=== PATIENT | female | born 1990 | race Caucasian/White ===

== ENCOUNTER 2020-07-28 14:10 | Outpatient (REF) | payer MEDICAID, SELFPAY ==
[2020-07-28 15:32] LABS: Thyroid Stimulating Hormone 0.25 mIU/mL (0.32-4.0)
[2020-07-28 15:33] LABS: Free T4 (Free Thyroxine) 1.77 ng/dL (0.71-1.85)
[2020-07-29 09:21] LABS: Triiodothyronine T3 Total 106 ng/dL (76-181)
== END 2020-07-28 14:11 | disposition home or self-care (01) ==
LOC: HO.LAB 14:10
PROVIDERS: PCP Emergency Medicine; Visit Provider Internal Medicine
DX: E03.9 Hypothyroidism, unspecified (principal)
CPT/HCPCS: 84439; 84443; 84480

== ENCOUNTER → 2020-08-16 08:32 | Outpatient (BNVA) | payer MEDICAID, SELFPAY | PROVIDERS: Visit Provider Internal Medicine | DX: E89.0 Postprocedural hypothyroidism (principal); E83.51 Hypocalcemia; E55.9 Vitamin D deficiency, unspecified; Z85.850 Personal history of malignant neoplasm of thyroid; Z79.899 Other long term (current) drug therapy | CPT/HCPCS: 99212 ==

== ENCOUNTER 2020-10-03 09:33 | Outpatient (REF) | payer MEDICAID, SELFPAY ==
[2020-10-03 10:25] LABS: Albumin Level 4.2 g/dL (3.5-5.0); Calcium 8.4 mg/dL (8.4-10.2)
[2020-10-03 10:53] LABS: Free T4 (Free Thyroxine) 1.26 ng/dL (0.71-1.85); Thyroid Stimulating Hormone 0.22 uIU/mL (0.32-4.0); Vitamin D 25-OH Total 33.8 ng/mL (>30)
[2020-10-04 16:37] LABS: Calcium (PTHI) 8.5 mg/dL (8.6-10.2); PTHI 68 pg/mL (14-64)
[2020-10-04 18:37] LABS: Triiodothyronine T3 Total 112 ng/dL (76-181)
[2020-10-04 18:57] LABS: Thyroglobulin 0.1 ng/mL; Thyroglobulin Antibodies <1 IU/mL (< or = 1)
[2020-10-10 08:22] LABS: FT4 by Equilib. Dialysis 1.9 ng/dL (0.9-2.2)
== END 2020-10-03 09:34 | disposition home or self-care (01) ==
LOC: HO.LAB 09:33
PROVIDERS: PCP Emergency Medicine; Visit Provider Internal Medicine
DX: E83.51 Hypocalcemia (principal); E89.0 Postprocedural hypothyroidism; E55.9 Vitamin D deficiency, unspecified
CPT/HCPCS: 36415; 82040; 82306; 82310; 83970; 84432; 84439; 84443; 84480; 86800

== ENCOUNTER → 2020-10-04 07:48 | Outpatient (BNVA) | payer MEDICAID, SELFPAY | PROVIDERS: Visit Provider Internal Medicine | DX: Z76.89 Persons encountering health services in other specified circumstances (principal) ==

== ENCOUNTER → 2020-11-23 07:54 | Outpatient (BNVA) | payer MEDICAID, SELFPAY | PROVIDERS: Visit Provider Internal Medicine ==

== ENCOUNTER 2020-11-28 11:19 | Outpatient (REF) | payer MEDICAID, SELFPAY ==
[2020-11-28 12:39] LABS: Albumin Level 4.1 g/dL (3.5-5.0); Calcium 8.4 mg/dL (8.4-10.2); Estimated Glomerular Filt Rate > 60
[2020-11-28 13:04] LABS: Free T4 (Free Thyroxine) 1.42 ng/dL (0.71-1.85); Thyroid Stimulating Hormone 0.02 uIU/mL (0.32-4.0); Vitamin D 25-OH Total 47.6 ng/mL (>30)
[2020-11-29 04:27] LABS: Triiodothyronine T3 Total 127 ng/dL (76-181)
[2020-11-29 05:16] LABS: Thyroglobulin <0.1 ng/mL
[2020-11-29 09:11] LABS: Thyroglobulin Antibodies <1 IU/mL (< or = 1)
[2020-11-29 10:22] LABS: Calcium (PTHI) 8.9 mg/dL (8.6-10.2); PTHI 35 pg/mL (14-64)
[2020-11-29 21:27] LABS: Prot Elec - Albumin 3.8 g/dL (3.8-4.8); Prot Elec - Alpha1 0.3 g/dL (0.2-0.3); Prot Elec - Alpha2 0.7 g/dL (0.5-0.9); Prot Elec - Beta 1 0.5 g/dL (0.4-0.6); Prot Elec - Beta 2 0.3 g/dL (0.2-0.5); Prot Elec - Gamma 1.2 g/dL (0.8-1.7); Prot Elec - Total Protein 6.8 g/dL (6.1-8.1)
== END 2020-11-28 11:20 | disposition home or self-care (01) ==
LOC: HO.LAB 11:19
PROVIDERS: PCP Emergency Medicine; Visit Provider Internal Medicine
DX: E83.51 Hypocalcemia (principal); E89.0 Postprocedural hypothyroidism; E55.9 Vitamin D deficiency, unspecified
CPT/HCPCS: 36415; 82040; 82306; 82310; 82565; 83970; 84155; 84165; 84432; 84439; 84443; 84480; 86800

== ENCOUNTER 2021-01-19 09:09 | Outpatient (REF) | payer MEDICAID, SELFPAY ==
[2021-01-19 10:01] LABS: Albumin Level 4.4 g/dL (3.5-5.0); Calcium 8.9 mg/dL (8.4-10.2)
[2021-01-19 10:31] LABS: Free T4 (Free Thyroxine) 1.22 ng/dL (0.71-1.85); Thyroid Stimulating Hormone 0.15 uIU/mL (0.32-4.0); Vitamin D 25-OH Total 45.9 ng/mL (>30)
[2021-01-20 05:51] LABS: Thyroglobulin <0.1 ng/mL; Thyroglobulin Antibodies <1 IU/mL (< or = 1)
[2021-01-22 13:43] LABS: Calcium (PTHI) 9.1 mg/dL (8.6-10.2); PTHI 49 pg/mL (14-64)
== END 2021-01-19 09:10 | disposition home or self-care (01) ==
LOC: HO.LAB 09:09
PROVIDERS: PCP Emergency Medicine; Visit Provider Internal Medicine
DX: E83.51 Hypocalcemia (principal); Z85.850 Personal history of malignant neoplasm of thyroid
CPT/HCPCS: 36415; 82040; 82306; 82310; 83970; 84432; 84439; 84443; 86800

== ENCOUNTER → 2021-01-24 09:42 | Outpatient (BNVA) | payer MEDICAID, SELFPAY | PROVIDERS: PCP Emergency Medicine; Visit Provider Internal Medicine ==

== ENCOUNTER 2021-02-05 08:11 | Outpatient (REF) | payer MEDICAID, SELFPAY | END 2021-02-05 08:12 | disposition home or self-care (01) | LOC: HO.LAB 08:11 | PROVIDERS: Visit Provider Internal Medicine | DX: Z20.822 Contact with and (suspected) exposure to COVID-19 (principal) | CPT/HCPCS: C9803; U0003; U0005 ==

== ENCOUNTER 2021-03-28 07:12 | Outpatient (REF) | payer MEDICAID, SELFPAY | END 2021-03-28 07:13 | disposition home or self-care (01) | LOC: HO.LAB 07:12 | PROVIDERS: Visit Provider Internal Medicine | DX: Z20.822 Contact with and (suspected) exposure to COVID-19 (principal) | CPT/HCPCS: C9803; U0003; U0005 ==

== ENCOUNTER 2021-04-11 11:08 | Outpatient (REF) | payer MEDICAID, SELFPAY ==
--- NOTE | ~2021-04-11 | US_ITS ---
EXAMINATION: ULTRASOUND PELVIC, COMPLETE CLINICAL INFORMATION: Irregular and frequent menstruation COMPARISON: CT angiogram of the abdomen and pelvis 03/04/2019 TECHNIQUE: Transabdominal and transvaginal imaging was performed. Transvaginal imaging was performed for further evaluation of the endometrium and adnexa. FINDINGS: The uterus is anteverted and retroflexed and is of normal size and echogenicity measuring 9.6 x 3.9 x 6.3 cm. A regular homogeneous endometrium is identified measuring 0.7 cm. There are nabothian cysts within the cervix. Both ovaries are of normal size and echogenicity. The right ovary measures 3.1 x 1.8 x 1.6 cm for a volume of 4.7 mL. The left ovary measures 3.3 x 2 x 3.5 cm for a volume of 12.1 mL. There are small follicles about each ovary. There is no pelvic free fluid. US/US pelvic and transvaginal IMPRESSION: Unremarkable pelvic ultrasound.
== END 2021-04-11 11:09 | disposition home or self-care (01) ==
LOC: HO.US 11:08
PROVIDERS: Visit Provider Advanced Practice Midwife
DX: N92.0 Excessive and frequent menstruation with regular cycle (principal)
CPT/HCPCS: 76830; 76856

== ENCOUNTER 2021-04-17 09:27 | Outpatient (REF) | payer MEDICAID, SELFPAY ==
[2021-04-17 10:38] LABS: Alanine Aminotransferase 17 U/L (0-31); Albumin Level 4.4 g/dL (3.5-5.0); Alkaline Phosphatase 59 U/L (39-117); Anion Gap 13 (12-20); Aspartate Amino Transferase 14 U/L (5-31); Bilirubin Total 0.5 mg/dL (0.0-1.0); Blood Urea Nitrogen 17 mg/dL (9-16); Calcium 9.2 mg/dL (8.4-10.2); Carbon Dioxide 24 mmol/L (22-29); Chloride 105 mmol/L (96-108); Estimated Glomerular Filt Rate > 60; Glucose Random 102 mg/dL (60-115); Potassium 4.7 mmol/L (3.3-5.1); Sodium 137 mmol/L (135-145); Total Protein 7.5 g/dL (6.5-8.0)
[2021-04-17 11:01] LABS: Free T4 (Free Thyroxine) 1.53 ng/dL (0.71-1.85); Thyroid Stimulating Hormone < 0.01 uIU/mL (0.32-4.0); Vitamin D 25-OH Total 60.5 ng/mL (>30)
[2021-04-19 09:12] LABS: Calcium (PTHI) 9.2 mg/dL (8.6-10.2); PTHI 38 pg/mL (14-64)
[2021-04-19 09:36] LABS: Thyroglobulin <0.1 ng/mL; Thyroglobulin Antibodies <1 IU/mL (< or = 1)
== END 2021-04-17 09:28 | disposition home or self-care (01) ==
LOC: HO.LAB 09:27
PROVIDERS: Visit Provider Internal Medicine
DX: E83.51 Hypocalcemia (principal); Z85.850 Personal history of malignant neoplasm of thyroid
CPT/HCPCS: 36415; 80053; 82306; 83970; 84432; 84439; 84443; 86800

== ENCOUNTER → 2021-04-18 08:37 | Outpatient (BNVA) | payer MEDICAID, SELFPAY | PROVIDERS: Visit Provider Internal Medicine ==

== ENCOUNTER 2021-05-25 12:36 | Outpatient (REF) | payer MEDICAID, SELFPAY ==
[2021-05-25 14:02] LABS: Albumin Level 4.3 g/dL (3.5-5.0); Calcium 9.3 mg/dL (8.4-10.2)
[2021-05-25 14:28] LABS: Free T4 (Free Thyroxine) 1.65 ng/dL (0.71-1.85); Thyroid Stimulating Hormone 0.01 uIU/mL (0.32-4.0); Vitamin D 25-OH Total 45.4 ng/mL (>30)
[2021-05-28 17:57] LABS: Thyroglobulin 0.1 ng/mL; Thyroglobulin Antibodies <1 IU/mL (< or = 1)
== END 2021-05-25 12:37 | disposition home or self-care (01) ==
LOC: HO.LAB 12:36
PROVIDERS: PCP Nurse Practitioner Primary Care; Visit Provider Internal Medicine
DX: E89.0 Postprocedural hypothyroidism (principal); E83.51 Hypocalcemia; E55.9 Vitamin D deficiency, unspecified; Z85.850 Personal history of malignant neoplasm of thyroid
CPT/HCPCS: 36415; 82040; 82306; 82310; 84432; 84439; 84443; 86800

== ENCOUNTER 2021-07-02 15:13 | Outpatient (REF) | payer MEDICAID, SELFPAY ==
[2021-07-02 16:54] LABS: Free T4 (Free Thyroxine) < 0.40 ng/dL (0.71-1.85); HCG Quantitative < 2 mIU/mL; Thyroid Stimulating Hormone 30.41 uIU/mL (0.32-4.0)
[2021-07-03 18:17] LABS: Thyroglobulin 1.6 ng/mL; Thyroglobulin Antibodies <1 IU/mL (< or = 1)
== END 2021-07-02 15:14 | disposition home or self-care (01) ==
LOC: HO.LAB 15:13
PROVIDERS: PCP Nurse Practitioner Primary Care; Visit Provider Internal Medicine
DX: E89.0 Postprocedural hypothyroidism (principal); Z85.850 Personal history of malignant neoplasm of thyroid
CPT/HCPCS: 36415; 84432; 84439; 84443; 84702; 86800

== ENCOUNTER 2021-07-10 12:53 | Outpatient (REF) | payer MEDICAID, SELFPAY ==
[2021-07-10 14:58] LABS: HCG Quantitative < 2 mIU/mL
== END 2021-07-10 12:54 | disposition home or self-care (01) ==
LOC: HO.LAB 12:53
PROVIDERS: PCP Nurse Practitioner Primary Care; Visit Provider Internal Medicine
DX: Z85.850 Personal history of malignant neoplasm of thyroid (principal)
CPT/HCPCS: 36415; 84443; 84702

== ENCOUNTER 2021-07-20 19:06 | Outpatient (REF) | payer MEDICAID, SELFPAY ==
--- NOTE | ~2021-07-20 | MR_ITS ---
EXAMINATION: MR THORACIC SPINE WITHOUT AND WITH CONTRAST CLINICAL INFORMATION: Malignant neoplasm of the thyroid gland. COMPARISON: Chest CT 09/14/2019. TECHNIQUE: MRI of the thoracic spine was obtained using routine sequences with and without contrast. Intravenous contrast: Gadavist 5.5 mL. FINDINGS: No dedicated postcontrast imaging of the thoracic spine is available at the time of dictation. Dedicated postcontrast imaging of the thoracic spine would be helpful in excluding any osseous metastatic lesions given the history. The post contrast imaging of the chest does not adequately evaluate the thoracic spine for this purpose. On the noncontrast portion of the thoracic spine MRI there is no evidence of bone marrow replacement. There is no bone marrow edema. Inferior chronic endplate Schmorl's node at T8. On the localizer series and at the uppermost aspect of this study, at C4-C5, a large disc osteophyte protrusion results in potential severe central canal stenosis and significant mass effect on the cervical spinal cord that would be better assessed with a dedicated cervical spine MRI. Mild spondylitic changes throughout the thoracic spine. No severe central canal stenosis and no severe foraminal stenosis. Neural foraminal fat is preserved throughout the thoracic spine. No thoracic cord signal abnormality. No thoracic cord compression. Prominent dorsal subcutaneous fat within the imaged lower neck. MR/MR thoracic spine wo/w con IMPRESSION: - No dedicated postcontrast imaging of the thoracic spine is available at the time of dictation. Dedicated postcontrast imaging of the thoracic spine would be helpful in excluding any osseous metastatic lesions given the history. The post contrast imaging of the chest does not adequately evaluate the thoracic spine for this purpose. - On the localizer series and at the uppermost aspect of this study, at C4-C5, a large disc osteophyte protrusion results in potential severe central canal stenosis and significant mass effect on the cervical spinal cord that would be better assessed with a dedicated cervical spine MRI. - Mediastinum and chest are evaluated on the corresponding chest MRI.
--- NOTE | ~2021-07-20 | MR_ITS ---
EXAMINATION: MR CHEST WITHOUT AND WITH CONTRAST CLINICAL INFORMATION: Thyroid cancer. COMPARISON: Previous chest CT 09/14/2019. TECHNIQUE: Sagittal axial and coronal sequences through the chest were performed with and without contrast. Patient received 5.5 mL intravenous Gadavist contrast. FINDINGS: The lungs are clear. There are no enlarged hilar or mediastinal lymph nodes. There are small bilateral axillary lymph nodes. No supraclavicular lymphadenopathy is seen. There is triangular-shaped soft tissue seen in the anterior superior mediastinum likely representing residual thymic tissue. This is similar to previous chest CT scan. No evidence of a suspicious mediastinal mass is seen. The heart is normal in size. There is no pericardial effusion. Vascular structures are normal. There is no pleural effusion or pleural thickening. Images through the upper abdomen are unremarkable. Bony structures are unremarkable. MR/MR chest wo/w con IMPRESSION: Unremarkable exam. No change from September 2019 CT scan.
== END 2021-07-20 19:07 | disposition home or self-care (01) ==
LOC: HO.MRI 19:06
PROVIDERS: Visit Provider Internal Medicine
DX: C73 Malignant neoplasm of thyroid gland (principal)
CPT/HCPCS: 71552; 72157; A9585

== ENCOUNTER 2021-09-18 11:23 | Outpatient (REF) | payer MEDICAID, SELFPAY ==
[2021-09-18 12:42] LABS: Free T4 (Free Thyroxine) 1.45 ng/dL (0.71-1.85); Thyroid Stimulating Hormone 0.01 uIU/mL (0.32-4.0)
[2021-09-20 05:40] LABS: Thyroglobulin Antibodies <1 IU/mL (< or = 1)
[2021-09-20 17:01] LABS: Thyroglobulin <0.1 ng/mL
== END 2021-09-18 11:24 | disposition home or self-care (01) ==
LOC: HO.LAB 11:23
PROVIDERS: PCP Nurse Practitioner Primary Care; Visit Provider Internal Medicine
DX: Z85.850 Personal history of malignant neoplasm of thyroid (principal)
CPT/HCPCS: 36415; 84432; 84439; 84443; 86800

== ENCOUNTER → 2021-09-19 08:21 | Outpatient (BNVA) | payer MEDICAID, SELFPAY | PROVIDERS: PCP Nurse Practitioner Primary Care; Visit Provider Internal Medicine ==

== ENCOUNTER 2021-09-20 08:07 | Outpatient (REF) | payer MEDICAID, SELFPAY | END 2021-09-20 08:08 | disposition home or self-care (01) | LOC: HO.MDS 08:07 | PROVIDERS: PCP Nurse Practitioner Primary Care; Visit Provider Internal Medicine | DX: D50.9 Iron deficiency anemia, unspecified (principal) | CPT/HCPCS: 96365; 96366; J1200; J1750; Q0163 ==

== ENCOUNTER 2021-11-21 10:19 | Outpatient (REF) | payer MEDICAID, SELFPAY ==
[2021-11-21 17:02] LABS: Free T4 (Free Thyroxine) 1.55 ng/dL (0.71-1.85); Thyroid Stimulating Hormone < 0.01 uIU/mL (0.32-4.0)
[2021-11-23 20:06] LABS: Thyroglobulin <0.1 ng/mL; Thyroglobulin Antibodies <1 IU/mL (< or = 1)
== END 2021-11-21 10:20 | disposition home or self-care (01) ==
LOC: HO.LAB 10:19
PROVIDERS: PCP Nurse Practitioner Primary Care; Visit Provider Internal Medicine
DX: C73 Malignant neoplasm of thyroid gland (principal); Z85.850 Personal history of malignant neoplasm of thyroid
CPT/HCPCS: 36415; 84432; 84439; 84443; 86800

== ENCOUNTER → 2021-11-28 07:58 | Outpatient (BNVA) | payer MEDICAID, SELFPAY | PROVIDERS: PCP Nurse Practitioner Primary Care; Visit Provider Internal Medicine | DX: E89.0 Postprocedural hypothyroidism (principal); E83.51 Hypocalcemia; E55.9 Vitamin D deficiency, unspecified; D49.89 Neoplasm of unspecified behavior of other specified sites; Z85.850 Personal history of malignant neoplasm of thyroid | CPT/HCPCS: 99212 ==

== ENCOUNTER 2021-12-12 11:00 | Outpatient (REF) | payer MEDICAID, SELFPAY ==
--- NOTE | ~2021-12-12 | MR_ITS ---
EXAMINATION: MR CHEST WITHOUT AND WITH CONTRAST CLINICAL INFORMATION: Thyroid cancer. COMPARISON: Previous chest MRI July [address] September 2019 TECHNIQUE: Sagittal axial and coronal sequences through the chest with and without contrast. The patient received 5 mL intravenous gadolinium contrast. FINDINGS: The lungs are clear. There are no enlarged hilar or mediastinal lymph nodes. The heart does not appear enlarged. There is no pericardial effusion. There is triangular-shaped soft tissue seen in the anterior superior mediastinum likely representing residual thymic tissue that is stable. There is no pleural effusion or pleural thickening. No chest wall mass or enlarged axillary lymph nodes are seen. The bony structures are unremarkable. Images of the upper abdomen are unremarkable. MR/MR chest wo/w con IMPRESSION: Unremarkable exam. No change from previous chest MRI July 2021.
== END 2021-12-12 11:01 | disposition home or self-care (01) ==
LOC: HO.MRI 11:00
PROVIDERS: Visit Provider Internal Medicine
DX: D49.89 Neoplasm of unspecified behavior of other specified sites (principal)
CPT/HCPCS: 71552; A9585

== ENCOUNTER 2021-12-19 09:07 | Outpatient (REF) | payer MEDICAID, SELFPAY | END 2021-12-19 09:08 | disposition home or self-care (01) | LOC: HO.MRI 09:07 | PROVIDERS: Visit Provider Internal Medicine | DX: Z13.89 Encounter for screening for other disorder (principal) ==

== ENCOUNTER 2022-01-02 12:27 | Outpatient (REF) | payer MEDICAID, SELFPAY ==
[2022-01-02 13:44] LABS: Phosphorus 3.1 mg/dL (2.7-4.5)
[2022-01-02 14:02] LABS: Free T4 (Free Thyroxine) 1.68 ng/dL (0.71-1.85); Thyroid Stimulating Hormone < 0.01 uIU/mL (0.32-4.0)
[2022-01-03 15:32] LABS: Vitamin D 25-OH Total 25.7 ng/mL (>30)
[2022-01-03 16:26] LABS: Calcium (PTHI) 9.2 mg/dL (8.6-10.2); PTHI 25 pg/mL (16-77)
[2022-01-07 13:22] LABS: Thyroglobulin <0.1 ng/mL; Thyroglobulin Antibodies <1 IU/mL (< or = 1)
== END 2022-01-02 12:28 | disposition home or self-care (01) ==
LOC: HO.LAB 12:27
PROVIDERS: PCP Nurse Practitioner Primary Care; Visit Provider Internal Medicine
DX: C73 Malignant neoplasm of thyroid gland (principal); E55.9 Vitamin D deficiency, unspecified
CPT/HCPCS: 36415; 82306; 83970; 84100; 84432; 84439; 84443; 86800

== ENCOUNTER → 2022-01-09 11:46 | Outpatient (BNVA) | payer MEDICAID, SELFPAY | PROVIDERS: PCP Nurse Practitioner Primary Care; Visit Provider Internal Medicine | DX: E89.0 Postprocedural hypothyroidism (principal); E83.51 Hypocalcemia; E55.9 Vitamin D deficiency, unspecified; D49.89 Neoplasm of unspecified behavior of other specified sites; Z85.850 Personal history of malignant neoplasm of thyroid | CPT/HCPCS: 99212 ==

== ENCOUNTER 2022-02-13 13:09 | Outpatient (REF) | payer MEDICAID, SELFPAY ==
--- NOTE | ~2022-02-13 | US_ITS ---
EXAMINATION: US SOFT TISSUE NECK CLINICAL INFORMATION: Personal history of malignant neoplasm of thyroid. COMPARISON: Ultrasound soft tissue head/neck thyroid dated 04/26/2019 and 03/04/2019. TECHNIQUE: Ultrasound of the neck soft tissues is performed with high- frequency deras-scale imaging and color Doppler. FINDINGS: THYROID BED: Patient appears be status post right thyroidectomy as well as question partial left thyroidectomy with on the provided imaging a question of some residual thyroid tissue within the thyroid bed. RIGHT NECK SOFT TISSUES: There are numerous right neck lymph nodes present. The largest nodes are as follows: Level VB: 9 x 4 x 7 mm. Normal alonzo architecture. No cortical thickening or lobulation. Level VB: 7 x 4 x 6 mm. Normal alonzo architecture. No cortical thickening or lobulation. Level II:14 x 6 x 13 mm. The appearance is abnormal with no definite fatty hilum identified and question of cortical thickening. The lymph node is smoothly demarcated. Level II: 7 x 3 x 5 mm. Normal architecture without cortical thickening or lobulation. Level II: 13 x 5 x 11 mm. Normal alonzo architecture without cortical thickening or lobulation. Level IB: 8 x 3 x 9 mm. Normal alonzo architecture without cortical thickening or lobulation. Level IB: 8 x 5 x 10 mm. Normal alonzo architecture without cortical thickening or lobulation. LEFT NECK SOFT TISSUES: There are numerous left neck lymph nodes present. The largest nodes are as follows: Level VB: 8 x 1 x 8 cm. Normal alonzo architecture. Level II: 7 x 3 x 5 cm. Normal alonzo architecture. Level II: 11 x 5 x 6 mm. It appears abnormal with lack of fatty hilum, however, no cortical thickening or lobulation is appreciated. Level III: 20 x 4 x 7 mm. Normal architecture without evidence of cortical thickening or lobulation. Level IB: 11 x 5 x 11 mm. Normal alonzo architecture without cortical thickening or lobulation. US/US soft tiss head and/or neck IMPRESSION: 1. Question abnormal lymph nodes without fatty clefts on the right at level II and on the left at level II as described. 2. Question small amount of residual thyroid tissue within the left thyroid bed on the provided images.
[2022-02-13 14:45] LABS: Free T4 (Free Thyroxine) 1.86 ng/dL (0.71-1.85); Thyroid Stimulating Hormone < 0.01 uIU/mL (0.32-4.0)
[2022-02-15 05:32] LABS: Thyroglobulin <0.1 ng/mL; Thyroglobulin Antibodies <1 IU/mL (< or = 1)
== END 2022-02-13 13:10 | disposition home or self-care (01) ==
LOC: HO.US 13:09
PROVIDERS: PCP Nurse Practitioner Primary Care; Visit Provider Internal Medicine
DX: C73 Malignant neoplasm of thyroid gland (principal)
CPT/HCPCS: 36415; 76536; 84432; 84439; 84443; 86800

== ENCOUNTER → 2022-02-20 08:28 | Outpatient (BNVA) | payer MEDICAID, SELFPAY | PROVIDERS: PCP Nurse Practitioner Primary Care; Visit Provider Internal Medicine | DX: Z13.89 Encounter for screening for other disorder (principal) ==

== ENCOUNTER 2022-04-19 10:07 | Outpatient (REF) | payer MEDICAID, SELFPAY ==
[2022-04-19 12:08] LABS: Free T4 (Free Thyroxine) 1.29 ng/dL (0.71-1.85); Thyroid Stimulating Hormone < 0.01 uIU/mL (0.32-4.0)
[2022-04-22 18:11] LABS: Thyroglobulin <0.1 ng/mL; Thyroglobulin Antibodies <1 IU/mL (< or = 1)
== END 2022-04-19 10:08 | disposition home or self-care (01) ==
LOC: HO.LAB 10:07
PROVIDERS: PCP Nurse Practitioner Primary Care; Visit Provider Internal Medicine
DX: C73 Malignant neoplasm of thyroid gland (principal)
CPT/HCPCS: 36415; 84432; 84439; 84443; 86800

== ENCOUNTER → 2022-04-26 09:17 | Outpatient (BNVA) | payer MEDICAID, SELFPAY | PROVIDERS: PCP Nurse Practitioner Primary Care; Visit Provider Internal Medicine | DX: E89.0 Postprocedural hypothyroidism (principal); E83.51 Hypocalcemia; E55.9 Vitamin D deficiency, unspecified; D49.89 Neoplasm of unspecified behavior of other specified sites; Z85.850 Personal history of malignant neoplasm of thyroid | CPT/HCPCS: 99212 ==

== ENCOUNTER 2022-07-31 15:04 | Outpatient (REF) | payer MEDICAID, SELFPAY ==
[2022-07-31 17:17] LABS: Albumin Level 4.7 g/dL (3.5-5.0); Calcium 9.4 mg/dL (8.4-10.2); Phosphorus 3.4 mg/dL (2.7-4.5)
[2022-07-31 17:45] LABS: Thyroid Stimulating Hormone < 0.01 uIU/mL (0.32-4.0); Vitamin D 25-OH Total 31.5 ng/mL (>30)
[2022-08-01 14:57] LABS: Calcium (PTHI) 9.2 mg/dL (8.6-10.2); PTHI 41 pg/mL (16-77)
[2022-08-01 22:51] LABS: Thyroglobulin 0.1 ng/mL; Thyroglobulin Antibodies <1 IU/mL (< or = 1)
== END 2022-07-31 15:05 | disposition home or self-care (01) ==
LOC: HO.LAB 15:04
PROVIDERS: Visit Provider Internal Medicine
DX: C73 Malignant neoplasm of thyroid gland (principal); E83.51 Hypocalcemia
CPT/HCPCS: 36415; 82040; 82306; 82310; 83970; 84100; 84432; 84439; 84443; 86800

== ENCOUNTER 2022-09-23 09:58 | Outpatient (REF) | payer MEDICAID, SELFPAY ==
[2022-09-23 12:15] LABS: Free T4 (Free Thyroxine) 1.71 ng/dL (0.71-1.85); Thyroid Stimulating Hormone < 0.01 uIU/mL (0.32-4.0)
== END 2022-09-23 09:59 | disposition home or self-care (01) ==
LOC: HO.LAB 09:58
PROVIDERS: PCP Nurse Practitioner Primary Care; Visit Provider Internal Medicine
DX: Z85.850 Personal history of malignant neoplasm of thyroid (principal)
CPT/HCPCS: 36415; 84439; 84443

== ENCOUNTER → 2022-10-02 14:44 | Outpatient (BNVA) | payer MEDICAID, SELFPAY | PROVIDERS: PCP Nurse Practitioner Primary Care; Visit Provider Internal Medicine | DX: E89.0 Postprocedural hypothyroidism (principal); E83.51 Hypocalcemia; E55.9 Vitamin D deficiency, unspecified; D49.89 Neoplasm of unspecified behavior of other specified sites; Z85.850 Personal history of malignant neoplasm of thyroid | CPT/HCPCS: 99212 ==

== ENCOUNTER 2023-01-08 11:43 | Outpatient (REF) | payer MEDICAID, SELFPAY ==
[2023-01-08 13:25] LABS: Free T4 (Free Thyroxine) 1.19 ng/dL (0.71-1.85); Thyroid Stimulating Hormone < 0.01 uIU/mL (0.32-4.0)
== END 2023-01-08 11:44 | disposition home or self-care (01) ==
LOC: HO.LAB 11:43
PROVIDERS: PCP Nurse Practitioner Primary Care; Visit Provider Internal Medicine
DX: E89.0 Postprocedural hypothyroidism (principal)
CPT/HCPCS: 36415; 84439; 84443

== ENCOUNTER 2023-02-18 11:30 | Outpatient (REF) | payer MEDICAID, SELFPAY ==
[2023-02-18 13:06] LABS: Thyroid Stimulating Hormone 0.06 uIU/mL (0.32-4.0)
== END 2023-02-18 11:31 | disposition home or self-care (01) ==
LOC: HO.LAB 11:30
PROVIDERS: PCP Nurse Practitioner Primary Care; Visit Provider Internal Medicine
DX: Z85.850 Personal history of malignant neoplasm of thyroid (principal)
CPT/HCPCS: 36415; 84439; 84443

== ENCOUNTER 2023-03-27 09:21 | Outpatient (REF) | payer MEDICAID, SELFPAY ==
[2023-03-27 11:01] LABS: Free T4 (Free Thyroxine) 1.19 ng/dL (0.71-1.85); Thyroid Stimulating Hormone 0.08 uIU/mL (0.32-4.0)
[2023-03-31 19:18] LABS: Thyroglobulin 0.1 ng/mL; Thyroglobulin Antibodies <1 IU/mL (< or = 1)
== END 2023-03-27 09:22 | disposition home or self-care (01) ==
LOC: HO.LAB 09:21
PROVIDERS: PCP Nurse Practitioner Primary Care; Visit Provider Internal Medicine
DX: Z85.850 Personal history of malignant neoplasm of thyroid (principal)
CPT/HCPCS: 36415; 84432; 84439; 84443; 86800

== ENCOUNTER 2023-06-02 15:08 | Outpatient (REF) | payer MEDICAID, SELFPAY ==
[2023-06-02 17:52] LABS: Free T4 (Free Thyroxine) 1.27 ng/dL (0.71-1.85); Thyroid Stimulating Hormone 0.07 uIU/mL (0.32-4.0)
== END 2023-06-02 15:09 | disposition home or self-care (01) ==
LOC: HO.LAB 15:08
PROVIDERS: PCP Nurse Practitioner Primary Care; Visit Provider Internal Medicine
DX: E89.0 Postprocedural hypothyroidism (principal)
CPT/HCPCS: 36415; 84439; 84443

== ENCOUNTER 2023-06-04 15:58 | Outpatient (AMB) | payer MEDICAID, SELFPAY ==
--- NOTE | 2023-06-04 16:00 | MHC.OFFVIS ---
Intake Vital Signs 06/04/23 16:02 Height 5 ft Weight 125 lb 10.616 oz BMI 24.5 BP 102/68 Blood Pressure Location Lt brachial Position Sitting Pulse 56 Pulse Source Pulse Oximeter Intake Visit Reasons: F/U Thyroid Cancer Intake Note: Patient present for Thyroid cancer follow up. 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 She is [id number], intermediate to high risk for recurrence. She is s/p remnant ablation with 28.8 millicurries I131 on 12/24/2019, and then Adjuvant Treatment with 145.8 millicurries I-131 04/13/2020. . . The patient last saw Dr. Bey on 10/02/2022 History: Shortly before her delivery of her third child (in mid 2018) she noted a lump in the region of the thyroid. Presented to PCP and thyroid US was ordered. This revealed multinodular thyroid with a large R sided nodule measuring 3.1 cm, and a large L sided nodule measuring 2.2 cm. She was subsequently referred to Endocrinology, but labs revealed hyperthyroidism with TSH of 0.03. Labs were repeated approximately 1 month later and had slightly improved with TSH of 0.09. FT4 and TT3 remained WNL. She had Thyroid antibodies assessed which were all negative. She was unable to have an uptake and scan completed given that she was at that time. TSH was repeated 05/20/19 and was 0.24. Symptoms had greatly improved. She did undergo FNA 06/17/19 of 3 separate thyroid nodules, with results detailed below: L superior 1.2 cm nodule - cytology Trego Category II benign L inferior 2.0 cm nodule - cytology Trego Category II benign R superior 3.0 cm nodule - cytology Trego Category II Atypia of Undetermined Signifigance - Affirma suspicious. She was referred to Dr. Mcdowell who performed a lateral neck US with finding of a large L sided 2 cm enlarged cervical lymph node. FNA revealed thyroid cells, with high suspicion for metastatic PTC. She underwent total thyroidectomy with central lymph node dissection and right modified radical neck dissection 08/18/19. Official path report revealed Multifocal Papillary Carcinoma of the thyroid, Follicular variant which was 4.0 cm in greatest dimension. There was no angioinvasion or lymphatic invasion identified. Margins were uninvolved. She did have / Central and 10/31 R Lateral Compartment lymph nodes positive for metastatic PTC. She did have a 1.1 cm nodule resected from the R cervical level III which was reported as a parasitic nodule, and within this nodule there was a microscopic focus for follicular variant of PTC. She was stage [id number], intermediate to high risk for recurrence. She did have reimplantation of the R superior and L inferior parathyroid glands, and did have postoperative hypocalcemia with hypoparathyroidism. She was on Calcium citrate with calcitriol posoperatively, but the calcitriol was stopped by Dr. Mcdowell at her F/U visit after her PTH recovered. She is off Calcium at this time. She was kept off of thyroid hormone replacement postoperatively in preparation for I131 remnant ablation. She did have a CT of the head with contrast 08/05/19 prior to her operation as she was having severe headaches. This did reveal a venous anomaly and she has been following with Interventional Neurology at [facility]. She also had a noncontrast CT of the chest 09/14/19 which revealed multiple subcentimeter pulmonary nodules, and also a soft tissue density within the anterior mediastinum. No measurements were given. Due to this, decision was made to initially ablate her with a remnant ablation dose of I131 30 millicurries, in order to visualize the soft tissue mass within the mediastinum. If this proved to iodine avid, then this would likely need surgical resection prior to high dose adjuvant treatment with I131. She did undergo remnant ablation 12/24/2019 with 28.8 millicurries of I131. This was done via the withdrawal method. She did not do labs until 01/11/2020, but these were while she remained off Levothyroxine, and TSH was 64.71 with TG 55.6, and negaitve TG antibodies. Post treatment WBS competed 12/31/2019 revealed a focus of radioiodine in the R thyroid bed thought to represent residual thyroid tissue or disease, as well as several foci of increased uptake with both lungs, suspicious for pulmonary micromets. The mediastinal lesion was not visualized. She then underwent Adjuvant Treatment 04/13/2020 with 145.8 millicurries of I131. Her post-treatment WBS revealed there is no longer region of radioiodine uptake in the right thyroid bed. Almost complete resolution of uptake in both lungs, with only 1 focus of increased uptake identified within the mid right lung without a definitive correlate seen on CT imaging suspicious for residual pulmonary micro mets. Distribution of radiotracer is otherwise physiologic with no other abnormal focus outside the neck identified. This was completed via the withdrawal method. Unfortunately her TSH and TG levels were not received. Of note, her initial remnant ablation was delayed until 12/24/2019 due to her inconsistently following a low iodine diet. Urinary iodine levels had remained elevated until just prior to 12/24/2019. Posttreatment she was started on Levothyroxine. Labs checked 10/03/2020 revealed a TSH of 0.22, TG level of 0.1 and negative TG antibodies. Labs checked 01/19/2021 reveal TSH 0.15 with TG <0.1 and TGAb <1. She had a repeat whole body scan completed 07/17/2021. This was completed via thyroid hormone withdrawal. Labs 07/10/2021 with TSH 88.2, TG 1.6 and TGAb negative. This revealed increased radiotracer uptake at the mid level of the sternum, with no correlation on SPECT CT. There was also increased uptake noted at the T1 and T7 vertebrae, also with no abnormality noted on SPECT CT. She underwent MRI of the thoracic spine as well as the chest which revealed a triangular shaped soft tissue mass visualized in the anterior superior mediastinum, thought to likely represent residual thymus. She was noted to have a large disc osteophyte at C4-C5 with protrusion with potential severe canal stenosis and significant mass effect on the cervical spinal cord. No other spinal abnormality was noted. She has been following with neurology for this abnormality. She then underwent PET CT completed 08/02/2021. This revealed mildly hypermetabolic lymph nodes at the R level IIB and left level IIB. There was also mildly increased FDG uptake noted in the anterior superior mediastinum, with CT demonstrating a triangular soft tissue mass there, thought to represent thymus. No focal abnormality noted within the spine. She underwent repeat MRI of the chest 12/12/2021 which revealed an unchanged triangular shaped soft tissue mass within the superior mediastinum. I discussed this finding with Dr. Land and decision was made to complete additional specialized imaging to determine if this represented normal thymus vs thymic neoplasm. Per results of her imaging this represents normal slightly hyperplastic thymus. She was ordered for an US head and neck in July 2021, but she consistently no-showed for this. She finally did have this completed 02/13/2022. This did reveal 2 abnormal appearing cervical lymph nodes, a R level II 1.4 cm and a L level II 1.1 cm lymph node. She was referred to Dr. Sienna Vasquez for FNA biopsy of these lymph nodes and to assess for any recurrence within the cervical chain. She was referred to Dr. Sienna Vasquez and saw her 04/17/2022. At that time no abnormal lymph nodes were found by Dr. Vasquez. TG was found to be undetectable. Recommendation was made to continue screening solely with TG levels and for a goal TSH of 0.1-0.5 for 3-5 years postoperatively, and then 0.4-2.0. Repat TSH 09/18/2021 0.01. Suppressed TG is <0.1 with negative TG antibodies. Repeated 04/19/2022 with the same results. She remains on levothyroxine 100 mcg PO daily.. She has been on this dose fo 3 mos US Head and Neck: 02/13/2022 RIGHT NECK SOFT TISSUES: There are numerous right neck lymph nodes present. The largest nodes are as follows: Level VB: 9 x 4 x 7 mm. Normal alonzo architecture. No cortical thickening or lobulation. Level VB: 7 x 4 x 6 mm. Normal alonzo architecture. No cortical thickening or lobulation. Level II:14 x 6 x 13 mm. The appearance is abnormal with no definite fatty hilum identified and question of cortical thickening. The lymph node is smoothly demarcated. Level II: 7 x 3 x 5 mm. Normal architecture without cortical thickening or lobulation. Level II: 13 x 5 x 11 mm. Normal alonzo architecture without cortical thickening or lobulation. Level IB: 8 x 3 x 9 mm. Normal alonzo architecture without cortical thickening or lobulation. Level IB: 8 x 5 x 10 mm. Normal alonzo architecture without cortical thickening or lobulation. LEFT NECK SOFT TISSUES: There are numerous left neck lymph nodes present. The largest nodes are as follows: Level VB: 8 x 1 x 8 cm. Normal alonzo architecture. Level II: 7 x 3 x 5 cm. Normal alonzo architecture. Level II: 11 x 5 x 6 mm. It appears abnormal with lack of fatty hilum, however, no cortical thickening or lobulation is appreciated. Level III: 20 x 4 x 7 mm. Normal architecture without evidence of cortical thickening or lobulation. Level IB: 11 x 5 x 11 mm. Normal alonzo architecture without cortical thickening or lobulation. US/US soft tiss head and/or neck IMPRESSION: 1. Question abnormal lymph nodes without fatty clefts on the right at level II and on the left at level II as described. ? 2. Question small amount of residual thyroid tissue within the left thyroid bed on the provided images. Chest MRI: 12/12/2021 FINDINGS: The lungs are clear. There are no enlarged hilar or mediastinal lymph nodes. The heart does not appear enlarged. There is no pericardial effusion. There is triangular-shaped soft tissue seen in the anterior superior mediastinum likely representing residual thymic tissue that is stable. There is no pleural effusion or pleural thickening. No chest wall mass or enlarged axillary lymph nodes are seen. The bony structures are unremarkable. Images of the upper abdomen are unremarkable.? Addendum: The patient returned for additional axial in-phase, vou-ja-odiat gradient echo sequences through the chest with phase and frequency directions reversed. There is signal loss to soft tissue in the anterior mediastinum on [id number] sequences suggestive of fatty normal thymus or thymic hyperplasia. MR/MR chest wo/w con IMPRESSION: Unremarkable exam. No change from previous chest MRI July 2021. Labs: Laboratory Tests 04/19/22 04/19/22 10:15 10:15 TSH < 0.01 L Free T4 1.29 Thyroglobulin Anti body <1 PFSH Medical History History of thyroid cancer Hypocalcemia Local recurrence of malignant neoplasm of thyroid gland Metastasis from thyroid cancer Postoperative hypothyroidism Primary malignant neoplasm of thyroid with metastasis to other site Thymus neoplasm Vitamin D deficiency Surgical History History of blood transfusion Hx of section Hx of total thyroidectomy Hx of tubal ligation Family History Father No problems noted. Mother No problems noted. 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 There is the absence of any cervical adenopathy. Assessment & Plan Assessment & Plan (1) Primary malignant neoplasm of thyroid with metastasis to other site: Code(s): C73 - Malignant neoplasm of thyroid gland Plan: This is a 33-year-old female with a history of metastatic papillary cancer status post thyroidectomy with 2 doses of radioactive iodine s/p remnant ablation with 28.8 millicurries I131 on 12/24/2019, and then Adjuvant Treatment with 145.8 millicurries I-131 04/13/2020. She is currently on 100 mcg levothyroxine with undetectable TSH.. Thyroglobulin levels have been steady at 0.1 Plan is to decrease levothyroxine to 88 mcg and recheck TSH and free T4 in 6 weeks time. Goal is to keep the TSH between 0.1 -0.3. Will also recheck neck ultrasound. If patient continues to have abnormal lymph nodes on neck ultrasound may have patient follow-up with Dr. Vasquez in [place] (2) Postoperative hypothyroidism: Code(s): E89.0 - Postprocedural hypothyroidism Orders: Orders Free T4 (Free Thyroxine) 6 Weeks C73 - Malignant neoplasm of thyroid gland Thyroid Stimulating Hormone 6 Weeks C73 - Malignant neoplasm of thyroid gland US thyroid Today C73 - Malignant neoplasm of thyroid gland Medications: New levothyroxine 88 mcg PO DAILY 30 tabs 5RF Discontinued levothyroxine Discontinued Reason: Doctor's Order 100 mcg PO DAILY 90 tabs 1RF Coding Level of Care Code Est Pt Level 3 (92997) Diagnoses Primary malignant neoplasm of thyroid with metastasis to other site C73 Postoperative hypothyroidism E89.0
[2023-06-04 16:02] VITALS: BP 102/68; PULSE 56; BMI 24.5
== END 2023-06-04 16:38 | disposition home or self-care (01) ==
PROVIDERS: PCP Nurse Practitioner Primary Care; Visit Provider Internal Medicine Endocrinology, Diabetes & Metabolism
DX: C73 Malignant neoplasm of thyroid gland (principal); E89.0 Postprocedural hypothyroidism
CPT/HCPCS: 99213

== ENCOUNTER → 2023-06-04 15:58 | Outpatient (BNVA) | payer MEDICAID, SELFPAY | PROVIDERS: PCP Nurse Practitioner Primary Care; Visit Provider Internal Medicine Endocrinology, Diabetes & Metabolism | DX: C73 Malignant neoplasm of thyroid gland (principal); E89.0 Postprocedural hypothyroidism; Z79.899 Other long term (current) drug therapy | CPT/HCPCS: 99212 ==

== ENCOUNTER 2023-06-25 15:52 | Outpatient (REF) | payer MEDICAID, SELFPAY ==
--- NOTE | ~2023-06-25 | US_ITS ---
EXAMINATION: US SOFT TISSUE OF THE NECK CLINICAL INFORMATION: Malignant neoplasm of thyroid gland. COMPARISON: Ultrasound soft tissue neck 02/13/2022. CT soft tissue neck 08/05/2019. Ultrasound soft tissue head/neck thyroid dated 03/04/2019. TECHNIQUE: Linear transducer grayscale and color Doppler examination of the thyroid bed and surrounding soft tissue. FINDINGS: Status post total thyroidectomy. No suspicious soft tissue within the thyroidectomy bed. A 1.6 x 0.7 x 1.5 cm right submandibular node appears to demonstrate internal calcification which would be abnormal morphology of uncertain which node on prior may be the correlate and recommend consideration of tissue sampling. US/US thyroid IMPRESSION: 1. A 1.6 x 0.7 cm right submandibular node appears to demonstrate internal calcification which would be abnormal morphology and recommend consideration of tissue sampling. 2. Status post total thyroidectomy. No suspicious soft tissue within the thyroidectomy bed. The report will be called to the ordering clinician by a [facility] [employer].
== END 2023-06-25 15:53 | disposition home or self-care (01) ==
LOC: HO.US 15:52
PROVIDERS: PCP Nurse Practitioner Primary Care; Visit Provider Internal Medicine Endocrinology, Diabetes & Metabolism
DX: C73 Malignant neoplasm of thyroid gland (principal)
CPT/HCPCS: 76536

== ENCOUNTER 2023-07-22 09:47 | Outpatient (REF) | payer MEDICAID, SELFPAY | END 2023-07-22 09:48 | disposition home or self-care (01) | LOC: HO.LAB 09:47 | PROVIDERS: PCP Nurse Practitioner Primary Care; Visit Provider Internal Medicine Endocrinology, Diabetes & Metabolism | DX: C73 Malignant neoplasm of thyroid gland (principal) | CPT/HCPCS: 36415; 84439; 84443 ==

== ENCOUNTER 2023-10-28 12:33 | Outpatient (REF) | payer MEDICAID, SELFPAY ==
[2023-10-28 14:26] LABS: Free T4 (Free Thyroxine) 1.21 ng/dL (0.71-1.85); Thyroid Stimulating Hormone 0.67 uIU/mL (0.32-4.0)
== END 2023-10-28 12:34 | disposition home or self-care (01) ==
LOC: HO.LAB 12:33
PROVIDERS: PCP Nurse Practitioner Primary Care; Visit Provider Internal Medicine Endocrinology, Diabetes & Metabolism
DX: Z85.850 Personal history of malignant neoplasm of thyroid (principal)
CPT/HCPCS: 36415; 84439; 84443

== ENCOUNTER 2023-11-18 08:32 | Outpatient (AMB) | payer MEDICAID, SELFPAY ==
--- NOTE | 2023-11-18 08:34 | MHC.OFFVIS ---
Intake Vital Signs 11/18/23 08:35 Height 5 ft Weight 126 lb 1.671 oz BMI 24.6 BP 100/58 L Blood Pressure Location Lt brachial Position Sitting Pulse 55 Pulse Source Pulse Oximeter Intake Visit Reasons: Thyroid cancer-confirmed Intake Note: Patient presents today for Thyroid Cancer follow up. 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 She is [id number], intermediate to high risk for recurrence. She is s/p remnant ablation with 28.8 millicurries I131 on 12/24/2019, and then Adjuvant Treatment with 145.8 millicurries I-131 04/13/2020. . . T History: Shortly before her delivery of her third child (in mid 2018) she noted a lump in the region of the thyroid. Presented to PCP and thyroid US was ordered. This revealed multinodular thyroid with a large R sided nodule measuring 3.1 cm, and a large L sided nodule measuring 2.2 cm. She was subsequently referred to Endocrinology, but labs revealed hyperthyroidism with TSH of 0.03. Labs were repeated approximately 1 month later and had slightly improved with TSH of 0.09. FT4 and TT3 remained WNL. She had Thyroid antibodies assessed which were all negative. She was unable to have an uptake and scan completed given that she was at that time. TSH was repeated 05/20/19 and was 0.24. Symptoms had greatly improved. She did undergo FNA 06/17/19 of 3 separate thyroid nodules, with results detailed below: L superior 1.2 cm nodule - cytology [place] Category II benign L inferior 2.0 cm nodule - cytology [place] Category II benign R superior 3.0 cm nodule - cytology [place] Category II Atypia of Undetermined Signifigance - Affirma suspicious. She was referred to Dr. Mcdowell who performed a lateral neck US with finding of a large L sided 2 cm enlarged cervical lymph node. FNA revealed thyroid cells, with high suspicion for metastatic PTC. She underwent total thyroidectomy with central lymph node dissection and right modified radical neck dissection 08/18/19. Official path report revealed Multifocal Papillary Carcinoma of the thyroid, Follicular variant which was 4.0 cm in greatest dimension. There was no angioinvasion or lymphatic invasion identified. Margins were uninvolved. She did have / Central and 10/31 R Lateral Compartment lymph nodes positive for metastatic PTC. She did have a 1.1 cm nodule resected from the R cervical level III which was reported as a parasitic nodule, and within this nodule there was a microscopic focus for follicular variant of PTC. She was stage [id number], intermediate to high risk for recurrence. She did have reimplantation of the R superior and L inferior parathyroid glands, and did have postoperative hypocalcemia with hypoparathyroidism. She was on Calcium citrate with calcitriol posoperatively, but the calcitriol was stopped by Dr. Mcdowell at her F/U visit after her PTH recovered. She is off Calcium at this time. She was kept off of thyroid hormone replacement postoperatively in preparation for I131 remnant ablation. She did have a CT of the head with contrast 08/05/19 prior to her operation as she was having severe headaches. This did reveal a venous anomaly and she has been following with Interventional Neurology at [facility]. She also had a noncontrast CT of the chest 09/14/19 which revealed multiple subcentimeter pulmonary nodules, and also a soft tissue density within the anterior mediastinum. No measurements were given. Due to this, decision was made to initially ablate her with a remnant ablation dose of I131 30 millicurries, in order to visualize the soft tissue mass within the mediastinum. If this proved to iodine avid, then this would likely need surgical resection prior to high dose adjuvant treatment with I131. She did undergo remnant ablation 12/24/2019 with 28.8 millicurries of I131. This was done via the withdrawal method. She did not do labs until 01/11/2020, but these were while she remained off Levothyroxine, and TSH was 64.71 with TG 55.6, and negaitve TG antibodies. Post treatment WBS competed 12/31/2019 revealed a focus of radioiodine in the R thyroid bed thought to represent residual thyroid tissue or disease, as well as several foci of increased uptake with both lungs, suspicious for pulmonary micromets. The mediastinal lesion was not visualized. She then underwent Adjuvant Treatment 04/13/2020 with 145.8 millicurries of I131. Her post-treatment WBS revealed there is no longer region of radioiodine uptake in the right thyroid bed. Almost complete resolution of uptake in both lungs, with only 1 focus of increased uptake identified within the mid right lung without a definitive correlate seen on CT imaging suspicious for residual pulmonary micro mets. Distribution of radiotracer is otherwise physiologic with no other abnormal focus outside the neck identified. This was completed via the withdrawal method. Unfortunately her TSH and TG levels were not received. Of note, her initial remnant ablation was delayed until 12/24/2019 due to her inconsistently following a low iodine diet. Urinary iodine levels had remained elevated until just prior to 12/24/2019. Posttreatment she was started on Levothyroxine. Labs checked 10/03/2020 revealed a TSH of 0.22, TG level of 0.1 and negative TG antibodies. Labs checked 01/19/2021 reveal TSH 0.15 with TG <0.1 and TGAb <1. She had a repeat whole body scan completed 07/17/2021. This was completed via thyroid hormone withdrawal. Labs 07/10/2021 with TSH 88.2, TG 1.6 and TGAb negative. This revealed increased radiotracer uptake at the mid level of the sternum, with no correlation on SPECT CT. There was also increased uptake noted at the T1 and T7 vertebrae, also with no abnormality noted on SPECT CT. She underwent MRI of the thoracic spine as well as the chest which revealed a triangular shaped soft tissue mass visualized in the anterior superior mediastinum, thought to likely represent residual thymus. She was noted to have a large disc osteophyte at C4-C5 with protrusion with potential severe canal stenosis and significant mass effect on the cervical spinal cord. No other spinal abnormality was noted. She has been following with neurology for this abnormality. She then underwent PET CT completed 08/02/2021. This revealed mildly hypermetabolic lymph nodes at the R level IIB and left level IIB. There was also mildly increased FDG uptake noted in the anterior superior mediastinum, with CT demonstrating a triangular soft tissue mass there, thought to represent thymus. No focal abnormality noted within the spine. She underwent repeat MRI of the chest 12/12/2021 which revealed an unchanged triangular shaped soft tissue mass within the superior mediastinum. I discussed this finding with Dr. Land and decision was made to complete additional specialized imaging to determine if this represented normal thymus vs thymic neoplasm. Per results of her imaging this represents normal slightly hyperplastic thymus. She was ordered for an US head and neck in July 2021, but she consistently no-showed for this. She finally did have this completed 02/13/2022. This did reveal 2 abnormal appearing cervical lymph nodes, a R level II 1.4 cm and a L level II 1.1 cm lymph node. She was referred to Dr. Sienna Vasquez for FNA biopsy of these lymph nodes and to assess for any recurrence within the cervical chain. She was referred to Dr. Sienna Vasquez and saw her 04/17/2022. At that time no abnormal lymph nodes were found by Dr. Vasquez. TG was found to be undetectable. Recommendation was made to continue screening solely with TG levels and for a goal TSH of 0.1-0.5 for 3-5 years postoperatively, and then 0.4-2.0. Repat TSH 09/18/2021 0.01. Suppressed TG is <0.1 with negative TG antibodies. Repeated 04/19/2022 with the same results. She remains on levothyroxine 100 mcg PO daily.. She has been on this dose fo 3 mos US Head and Neck: 02/13/2022 RIGHT NECK SOFT TISSUES: There are numerous right neck lymph nodes present. The largest nodes are as follows: Level VB: 9 x 4 x 7 mm. Normal alonzo architecture. No cortical thickening or lobulation. Level VB: 7 x 4 x 6 mm. Normal alonzo architecture. No cortical thickening or lobulation. Level II:14 x 6 x 13 mm. The appearance is abnormal with no definite fatty hilum identified and question of cortical thickening. The lymph node is smoothly demarcated. Level II: 7 x 3 x 5 mm. Normal architecture without cortical thickening or lobulation. Level II: 13 x 5 x 11 mm. Normal alonzo architecture without cortical thickening or lobulation. Level IB: 8 x 3 x 9 mm. Normal alonzo architecture without cortical thickening or lobulation. Level IB: 8 x 5 x 10 mm. Normal alonzo architecture without cortical thickening or lobulation. LEFT NECK SOFT TISSUES: There are numerous left neck lymph nodes present. The largest nodes are as follows: Level VB: 8 x 1 x 8 cm. Normal alonzo architecture. Level II: 7 x 3 x 5 cm. Normal alonzo architecture. Level II: 11 x 5 x 6 mm. It appears abnormal with lack of fatty hilum, however, no cortical thickening or lobulation is appreciated. Level III: 20 x 4 x 7 mm. Normal architecture without evidence of cortical thickening or lobulation. Level IB: 11 x 5 x 11 mm. Normal alonzo architecture without cortical thickening or lobulation. US/US soft tiss head and/or neck IMPRESSION: 1. Question abnormal lymph nodes without fatty clefts on the right at level II and on the left at level II as described. ? 2. Question small amount of residual thyroid tissue within the left thyroid bed on the provided images. Chest MRI: 12/12/2021 FINDINGS: The lungs are clear. There are no enlarged hilar or mediastinal lymph nodes. The heart does not appear enlarged. There is no pericardial effusion. There is triangular-shaped soft tissue seen in the anterior superior mediastinum likely representing residual thymic tissue that is stable. There is no pleural effusion or pleural thickening. No chest wall mass or enlarged axillary lymph nodes are seen. The bony structures are unremarkable. Images of the upper abdomen are unremarkable.? Addendum: The patient returned for additional axial in-phase, [id number] gradient echo sequences through the chest with phase and frequency directions reversed. There is signal loss to soft tissue in the anterior mediastinum on [id number] sequences suggestive of fatty normal thymus or thymic hyperplasia. MR/MR chest wo/w con IMPRESSION: Unremarkable exam. No change from previous chest MRI July 2021. Labs: Laboratory Tests 04/19/22 04/19/22 10:15 10:15 TSH < 0.01 L Free T4 1.29 Thyroglobulin Anti body <1 recent neck ultrasound showed abnormal submandibular lymph node INDINGS: Status post total thyroidectomy. No suspicious soft tissue within the thyroidectomy bed. A 1.6 x 0.7 x 1.5 cm right submandibular node appears to demonstrate internal calcification which would be abnormal morphology of uncertain which node on prior may be the correlate and recommend consideration of tissue sampling. US/US thyroid IMPRESSION: 1. A 1.6 x 0.7 cm right submandibular node appears to demonstrate internal calcification which would be abnormal morphology and recommend consideration of tissue sampling. 2. Status post total thyroidectomy. No suspicious soft tissue within the thyroidectomy bed. [facility] Medical History History of thyroid cancer Hypocalcemia Local recurrence of malignant neoplasm of thyroid gland Metastasis from thyroid cancer Postoperative hypothyroidism Primary malignant neoplasm of thyroid with metastasis to other site Thymus neoplasm Vitamin D deficiency Surgical History History of blood transfusion Hx of section Hx of total thyroidectomy Hx of tubal ligation Family History Father No problems noted. Mother No problems noted. 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 Current occupational exposures/hazards: Yes (Stress, heavy lifting) Physical Exam Const Other: Healed scar status post thyroidectomy. There is the absence of any cervical adenopathy. Assessment & Plan Assessment & Plan (1) Primary malignant neoplasm of thyroid with metastasis to other site: Code(s): C73 - Malignant neoplasm of thyroid gland Plan: This is a 33-year-old female with a history of metastatic papillary cancer status post thyroidectomy with 2 doses of radioactive iodine s/p remnant ablation with 28.8 millicurries I131 on 12/24/2019, and then Adjuvant Treatment with 145.8 millicurries I-131 04/13/2020. She is currently on 88 mcg levothyroxine . She appears to be clinically and biochemically euthyroid Plan is to patient follow-up with Dr. Vasquez in [place] to assess the abnormal lymph node seen on neck US (2) Postoperative hypothyroidism: Code(s): E89.0 - Postprocedural hypothyroidism Plan: Clinically and biochemically euthyroid on 88 mcg levothyroxine Orders: Referrals Endocrinology Referral C73 - Malignant neoplasm of thyroid gland Coding Level of Care Code Est Pt Level 3 (87752) Diagnoses Primary malignant neoplasm of thyroid with metastasis to other site C73 Postoperative hypothyroidism E89.0
[2023-11-18 08:35] VITALS: BP 100/58; PULSE 55; BMI 24.6
== END 2023-11-18 08:57 | disposition home or self-care (01) ==
PROVIDERS: PCP Nurse Practitioner Primary Care; Referring Provider Nurse Practitioner Primary Care; Visit Provider Internal Medicine Endocrinology, Diabetes & Metabolism
DX: C73 Malignant neoplasm of thyroid gland (principal); E89.0 Postprocedural hypothyroidism
CPT/HCPCS: 99213

== ENCOUNTER → 2023-11-18 08:32 | Outpatient (BNVA) | payer MEDICAID, SELFPAY | PROVIDERS: PCP Nurse Practitioner Primary Care; Visit Provider Internal Medicine Endocrinology, Diabetes & Metabolism | DX: C73 Malignant neoplasm of thyroid gland (principal); E89.0 Postprocedural hypothyroidism | CPT/HCPCS: 99212 ==

== ENCOUNTER 2024-09-01 06:04 | Outpatient (REF) | payer MEDICAID, SELFPAY ==
[2024-09-01 08:10] LABS: Free T4 (Free Thyroxine) 0.98 ng/dL (0.71-1.85); Thyroid Stimulating Hormone 16.37 uIU/mL (0.32-4.0)
[2024-09-03 04:53] LABS: Thyroglobulin 1.4 ng/mL; Thyroglobulin Antibodies <1 IU/mL (< or = 1)
[2024-09-08 08:19] LABS: Thyroglobulin Antibody <1 IU/mL (<=1); Thyroglobulin Level 1.3 ng/mL
== END 2024-09-01 06:05 | disposition home or self-care (01) ==
LOC: HO.LAB 06:04
PROVIDERS: PCP Nurse Practitioner Primary Care; Visit Provider Student in an Organized Health Care Education/Training Program
DX: E89.0 Postprocedural hypothyroidism (principal); Z85.850 Personal history of malignant neoplasm of thyroid
CPT/HCPCS: 36415; 84432; 84439; 84443; 86800

== ENCOUNTER 2024-09-07 08:39 | Outpatient (AMB) | payer MEDICAID, SELFPAY ==
[2024-09-07 08:41] VITALS: BP 112/66; PULSE 51; BMI 22.2
--- NOTE | 2024-09-07 08:41 | MHC.OFFVIS ---
Vital Signs 09/07/24 08:41 Height 5 ft Weight 113 lb 12.136 oz BMI 22.2 BP 112/66 Blood Pressure Location Lt brachial Position Sitting Pulse 51 Pulse Source Pulse Oximeter Intake Visit Reasons: Thyroid Cancer/confirmed Intake Note: Patient present today for Thyroid Cancer follow up visit. Acute Coordinator Required: No Accompanied by: Self / Same As Patient Allergies No Known Allergies [No Known Allergies*] Allergy (Verified 09/07/24 08:44) HPI Comments Details: 34-year-old female here today for follow up of multifocal follicular variant of PTC status post total thyroidectomy and with central lymph node dissection and right modified radical neck dissection on 08/18/2019 with largest focus of 4 cm with 6/38 lymph nodes positive, no AI/LI/ETE, margins negative, AJCC stage I (pT2 N1b MX), MILLER intermediate risk of recurrence, status post remnant ablation with 28.8 mCi of I 131 on 12/24/2019, then adjuvant treatment with 145.8 mCi of I 131 on 04/13/2020 currently MILLER excellent vs indeterminate response to therapy due to mildly elevated Tg intermittenly . History PTC in detail Mid 2019: Noted lump in the region of the thyroid shortly before delivery of her 3rd child. Thyroid ultrasound revealed multinodular goiter with large right-sided nodule measuring 3.1 cm, and a large left-sided nodule measuring 2.2 cm. Labs revealed subclinical hyperthyroidism with TSH of 0.03. Labs were repeated approximately 1 month later with slightly improved TSH of 0.09. Free T4 and total T3 remained within normal limits. Thyroid antibodies were all negative. She was unable to have an uptake and scan given that she was of the time. 05/20/2019: TSH 0.24, symptoms greatly improved 06/17/2019: FNA of 3 separate thyroid nodules L superior 1.2 cm nodule - cytology [place] Category II benign L inferior 2.0 cm nodule - cytology [place] Category II benign R superior 3.0 cm nodule - cytology [place] Category II Atypia of Undetermined Signifigance - Affirma suspicious. Late 2018: Dr. Mcdowell performed lateral neck ultrasound with finding of a large left-sided 2 cm enlarged cervical lymph node. FNA revealed thyroid cells with high suspicion for metastatic PTC. 08/18/2019: Total thyroidectomy with central lymph node dissection and right modified radical neck dissection with Dr. Lynsey Mcdowell at [facility] with the official pathology revealed multifocal papillary carcinoma of the thyroid, follicular variant which was 4 cm in greatest dimension. No angioinvasion or lymphatic invasion identified. Margins were uninvolved. She did have 5/10 central and /19 right lateral compartment lymph nodes positive for metastatic PTC. She did have a 1.1 cm nodule resected from the right cervical level 3 which was reported as metastatic nodule, and within this nodule there was a microscopic focus for follicular variant of PTC. AJCC stage I (pT2 N1b MX), MILLER intermediate to high-risk of recurrence. Also had reimplantation of the right superior and left inferior parathyroid glands. She did develop postoperative hypocalcemia with hypoparathyroidism and was on calcium citrate with calcitriol postoperatively, but eventually PTH recovered and she was able to come off these. She was kept off thyroid hormone replacement postoperatively in preparation for I 131 remnant ablation. 08/05/2019: CT of the head with contrast prior to her operation due to severe headaches revealed a venous anomaly, and she is following with intubation and Neurology at [facility]. 09/14/2019: Noncontrast CT of the chest revealed multiple subcentimeter pulmonary nodules and also a soft tissue density within the anterior mediastinum. No measurements were given. Due to this decision was made to initially ablate her with a remnant ablation dose of I 131 30 mCi, in order to visualize the soft tissue mass within the mediastinum which is proven to be iodine avid, would need high-dose adjuvant treatment with I 131. 12/24/2019: Status post remnant ablation with 28.8 mCi of I 131. Done by withdrawal method. 01/11/2020: Labs not done until this date, but these were while she remained off levothyroxine and TSH was 64.71 with TG 55.6, negative TG antibodies. 12/31/2019: Posttreatment whole-body scan revealed a focus of radioiodine in the right thyroid bed thought to represent residual thyroid tissue/disease as well as several foci of increased uptake within both lungs suspicious for pulmonary micrometastasis. Mediastinal lesion was not visualized. 04/13/2020: Underwent adjuvant treatment with 145.8 mCi of I 131. Posttreatment whole-body scan revealed there is no longer region of radioiodine uptake in the right thyroid bed. Almost complete resolution of uptake in both lungs with only 1 focus of increased uptake identified within the mid right lung without a definitive correlate seen on CT imaging suspicious for residual pulmonary micro metastasis. Distribution of radiotracer uptake was otherwise physiologic with no abnormal focus out identified outside of the neck. This was completed via the withdrawal method. Unfortunately TSH and TG levels were not received. Of note, her initial remnant ablation was delayed until 12/24/2019 due to her inconsistently following a low iodine diet. Urinary iodine levels had remained elevated until just prior to 12/24/2019. Posttreatment she was started on Levothyroxine. 10/03/2020 labs revealed a TSH of 0.22, TG level of 0.1 and negative TG antibodies. 01/19/2021 labs reveal TSH 0.15 with TG <0.1 and TGAb <1. 07/17/2021: Whole-body scan was completed via thyroid hormone withdrawal which revealed increased radiotracer uptake at the mid level of the sternum with no correlation on SPECT CT. There was also increased uptake noted at the T1 and T7 vertebra, also with no abnormality noted on SPECT CT. 07/10/2021: Labs TSH 88.2, TG 1.6, TG antibody negative 2020: MRI of the thoracic spine as well as chest which revealed a triangular shaped soft tissue mass visualized in the anterior superior mediastinum thought to likely represent residual thymus. She was also noted to have a large disc osteophyte at C4-C5 with protrusion with potential severe canal stenosis and significant mass effect on the cervical spinal cord. No other spinal abnormality was noted. She has been following with Neurology for this abnormality. 08/02/2021: PET-CT revealed mildly hypermetabolic lymph nodes in the right level 2B and left level 2B. There was also mildly increased FDG uptake noted in the anterior superior mediastinum with CT demonstrating a triangular soft tissue mass there thought to represent time is. No focal abnormality noted within the spine. 07/2021: She was ordered for ultrasound head and neck however consistently no showed for this. 09/18/2021: TSH 0.01, suppressed TG less than 0.1, TG antibodies in undetectable 12/12/2021: MRI of the chest revealed an unchanged triangular shaped soft tissue mass within the superior mediastinum. Per results if additional imaging this represented normal slightly hyperplastic thymus. 02/13/2022: Ultrasound head and neck reveals to have normal-appearing cervical lymph nodes, right level 2, 1.4 cm and a left level 2, 1.1 cm lymph node. She was referred to Dr. Sienna Brown for FNA biopsy of these lymph nodes to assess for any recurrence in the cervical chain. 04/17/2022: Evaluated by Dr. Sienna Marmolejo at [facility], [place]: no abnormal lymph nodes found, TG was found to be undetectable. Recommendation was made to continue screening solely with TG levels and for a goal TSH of 0.1-0.5 for 3-5 years postoperatively and then 0.4-2. She used to be on levothyroxine 150 mcg daily at some point, this was reduced due to continuously suppressed TSH at some point in 2021, unclear exactly when. 04/19/2022: TSH suppressed, TG antibodies negative, TG less than 0.4?. 03/27/23: tsh 0.08, free t4 1.19, tg <0.1, tg ab <1 06/02/23: tsh 0.07, free t4 1.27 06/25/2023: Ultrasound head and neck did not show any suspicious soft tissue mass within the thyroidectomy bed. Showed a 1.6 X 0.7 next 1.5 cm right submandibular node with internal calcification considered as of normal morphology of uncertain significance. 09/19/23: tsh 1.59, free t4 1.17, tg 0.28, tg ab <0.4 10/04: US neck done with Dr. Vasquez : postrerior to carotid artery in left level IV a flat node measuring 10.5x 0.2 x 0.5 cm with no microcal or vascular flow (looked at report in pt's phone), left level 4 oval node 1.1 x 0.4x0.7 cm normal morphology 2023 TSH 1.5, Tg 0.28 (up from <0.1 but TSH was previousl ysuppressed ) 08/24/24: Dr. Emily Gates did US at [facility] i don not have this report but looked at it in patient phone [facility] said no abnormal LNs noted, left latera level 2, 7x3x[address]with hilum. 08/24/24: TSH 13.37, free t4 0.86, levothyroxine changed to 100 mcg daily from 88 mcg daily Interval history dose of levothyroxine changed to 100 mcg daily from 88 mcg daily anout 2 weeks ago 09/01/24: TSH 16.37, free T4 0.98, thyroglobulin 1.4, TG antibodies less than 1 Denies compressive symtpms Complaining fo excessive tirendess She endorses taking the levothyroxine appropriately, denies missing any doses, she often drinks coffee soon after taking the medication but waits an hour before eating breakfast. Physical exam General: sitting comfortably in no acute distress HEENT: normocephalic/atraumatic, Neck: supple, symmetrical, no palpable masses Cardiac: normal heart sounds Pulm: normal breath sounds B/L, no added breath sounds Abd: not distended, no tenderness Extremities: no edema, no signs of myxedema Neuro: AAO x3, Speech: normal, no facial droop, moving all 4 extremities Laboratory Tests 03/17/19 04/12/19 05/20/19 13:45 14:10 15:14 TSH Free T4 1.12 0.86 0.99 Thyroglobulin Thyroglobulin Antibody 06/16/19 09/08/19 10/21/19 09:50 15:35 14:35 TSH Free T4 0.87 Thyroglobulin 30.7 17.3 H Thyroglobulin Antibody 01/11/20 02/18/20 03/27/20 12:10 16:05 12:15 TSH Free T4 < 0.40 L 1.01 Thyroglobulin 55.6 H 2.3 L 3.9 Thyroglobulin Antibody 06/13/20 07/28/20 10/03/20 10:39 14:30 09:50 TSH 0.25 L 0.22 L Free T4 1.77 1.26 Thyroglobulin 0.8 L 0.1 L Thyroglobulin Antibody <1 <1 11/28/20 01/19/21 04/17/21 11:35 09:25 09:50 TSH 0.02 L 0.15 L < 0.01 L Free T4 1.42 1.22 1.53 Thyroglobulin <0.1 L <0.1 L <0.1 L Thyroglobulin Antibody <1 <1 <1 05/25/21 07/02/21 07/10/21 13:00 15:23 13:16 TSH 0.01 L 30.41 H 88.20 H Free T4 1.65 < 0.40 L Thyroglobulin 0.1 L 1.6 L Thyroglobulin Antibody <1 <1 12/05/0211/21/21 01/02/22 11:38 10:40 12:30 TSH 0.01 L < 0.01 L Free T4 1.45 1.55 Thyroglobulin <0.1 L <0.1 L <0.1 L Thyroglobulin Antibody <1 <1 <1 01/02/22 02/13/22 04/19/22 12:47 13:52 10:15 TSH < 0.01 L < 0.01 L < 0.01 L Free T4 1.68 1.86 H 1.29 Thyroglobulin <0.1 L <0.1 L Thyroglobulin Antibody <1 <1 07/31/22 09/23/22 01/08/23 15:21 10:11 11:49 TSH < 0.01 L < 0.01 L < 0.01 L Free T4 1.80 1.71 1.19 Thyroglobulin 0.1 L Thyroglobulin Antibody <1 02/18/23 03/27/23 06/02/23 11:37 09:35 15:24 TSH 0.06 L 0.08 L 0.07 L Free T4 1.20 1.19 1.27 Thyroglobulin 0.1 L Thyroglobulin Antibody <1 07/22/23 10/28/23 09/01/24 10:00 12:40 06:23 TSH 1.27 0.67 16.37 H Free T4 1.00 1.21 0.98 Thyroglobulin 1.4 L Thyroglobulin Antibody <1 ADDENDUMBerto Lemons confirmed receipt of these findings and recommendations with Sakshi HOWARD at the office of ordering provider David Suggs, at 11:49 AM 06/30/2023. Addendum Dictated By: Veronica Arizmendi MD Addendum Signed By: <Electronically signed by Veronica Arizmendi MD in [place]> 06/30/23 1151 Addendum Cosigned By: : 06/25/23/ EXAMINATION: US SOFT TISSUE OF THE NECK CLINICAL INFORMATION: Malignant neoplasm of thyroid gland. COMPARISON: Ultrasound soft tissue neck 02/13/2022. CT soft tissue neck 08/05/2019. Ultrasound soft tissue head/neck thyroid dated 03/04/2019. TECHNIQUE: Linear transducer grayscale and color Doppler examination of the thyroid bed and surrounding soft tissue. FINDINGS: Status post total thyroidectomy. No suspicious soft tissue within the thyroidectomy bed. A 1.6 x 0.7 x 1.5 cm right submandibular node appears to demonstrate internal calcification which would be abnormal morphology of uncertain which node on prior may be the correlate and recommend consideration of tissue sampling. US/US thyroid IMPRESSION: 1. A 1.6 x 0.7 cm right submandibular node appears to demonstrate internal calcification which would be abnormal morphology and recommend consideration of tissue sampling. 2. Status post total thyroidectomy. No suspicious soft tissue within the thyroidectomy bed. The report will be called to the ordering clinician by a [facility] Package Line Relief Operator. US SOFT TISSUE NECK 02/13/22 CLINICAL INFORMATION: Personal history of malignant neoplasm of thyroid. COMPARISON: Ultrasound soft tissue head/neck thyroid dated 04/26/2019 and 03/04/2019. TECHNIQUE: Ultrasound of the neck soft tissues is performed with high- frequency deras-scale imaging and color Doppler. FINDINGS: THYROID BED: Patient appears be status post right thyroidectomy as well as question partial left thyroidectomy with on the provided imaging a question of some residual thyroid tissue within the thyroid bed. RIGHT NECK SOFT TISSUES: There are numerous right neck lymph nodes present. The largest nodes are as follows: Level VB: 9 x 4 x 7 mm. Normal alonzo architecture. No cortical thickening or lobulation. Level VB: 7 x 4 x 6 mm. Normal alonzo architecture. No cortical thickening or lobulation. Level II:14 x 6 x 13 mm. The appearance is abnormal with no definite fatty hilum identified and question of cortical thickening. The lymph node is smoothly demarcated. Level II: 7 x 3 x 5 mm. Normal architecture without cortical thickening or lobulation. Level II: 13 x 5 x 11 mm. Normal alonzo architecture without cortical thickening or lobulation. Level IB: 8 x 3 x 9 mm. Normal alonzo architecture without cortical thickening or lobulation. Level IB: 8 x 5 x 10 mm. Normal alonzo architecture without cortical thickening or lobulation. LEFT NECK SOFT TISSUES: There are numerous left neck lymph nodes present. The largest nodes are as follows: Level VB: 8 x 1 x 8 cm. Normal alonzo architecture. Level II: 7 x 3 x 5 cm. Normal alonzo architecture. Level II: 11 x 5 x 6 mm. It appears abnormal with lack of fatty hilum, however, no cortical thickening or lobulation is appreciated. Level III: 20 x 4 x 7 mm. Normal architecture without evidence of cortical thickening or lobulation. Level IB: 11 x 5 x 11 mm. Normal alonzo architecture without cortical thickening or lobulation. US/US soft tiss head and/or neck IMPRESSION: 1. Question abnormal lymph nodes without fatty clefts on the right at level II and on the left at level II as described. 2. Question small amount of residual thyroid tissue within the left thyroid bed on the provided images. MRI chest 12/12/21 ADDENDUM Addendum: The patient returned for additional axial in-phase, [id number] gradient echo sequences through the chest with phase and frequency directions reversed. There is signal loss to soft tissue in the anterior mediastinum on kqi-ix-ietst sequences suggestive of fatty normal thymus or thymic hyperplasia. Addendum Dictated By: Josi Land MD Addendum Signed By: <Electronically signed by Josi Land MD in [place]> 01/04/22 1643 Addendum Cosigned By: DD/ /04/1104 TD/TT: / EXAMINATION: MR CHEST WITHOUT AND WITH CONTRAST CLINICAL INFORMATION: Thyroid cancer. COMPARISON: Previous chest MRI July [address] September 2019 TECHNIQUE: Sagittal axial and coronal sequences through the chest with and without contrast. The patient received 5 mL intravenous gadolinium contrast. FINDINGS: The lungs are clear. There are no enlarged hilar or mediastinal lymph nodes. The heart does not appear enlarged. There is no pericardial effusion. There is triangular-shaped soft tissue seen in the anterior superior mediastinum likely representing residual thymic tissue that is stable. There is no pleural effusion or pleural thickening. No chest wall mass or enlarged axillary lymph nodes are seen. The bony structures are unremarkable. Images of the upper abdomen are unremarkable. MR/MR chest wo/w con IMPRESSION: Unremarkable exam. No change from previous chest MRI July 2021. MR THORACIC SPINE WITHOUT AND WITH CONTRAST 07/20/21 CLINICAL INFORMATION: Malignant neoplasm of the thyroid gland. COMPARISON: Chest CT 09/14/2019. TECHNIQUE: MRI of the thoracic spine was obtained using routine sequences with and without contrast. Intravenous contrast: Gadavist 5.5 mL. FINDINGS: No dedicated postcontrast imaging of the thoracic spine is available at the time of dictation. Dedicated postcontrast imaging of the thoracic spine would be helpful in excluding any osseous metastatic lesions given the history. The post contrast imaging of the chest does not adequately evaluate the thoracic spine for this purpose. On the noncontrast portion of the thoracic spine MRI there is no evidence of bone marrow replacement. There is no bone marrow edema. Inferior chronic endplate Schmorl's node at T8. On the localizer series and at the uppermost aspect of this study, at C4-C5, a large disc osteophyte protrusion results in potential severe central canal stenosis and significant mass effect on the cervical spinal cord that would be better assessed with a dedicated cervical spine MRI. Mild spondylitic changes throughout the thoracic spine. No severe central canal stenosis and no severe foraminal stenosis. Neural foraminal fat is preserved throughout the thoracic spine. No thoracic cord signal abnormality. No thoracic cord compression. Prominent dorsal subcutaneous fat within the imaged lower neck. MR/MR thoracic spine wo/w con IMPRESSION: - No dedicated postcontrast imaging of the thoracic spine is available at the time of dictation. Dedicated postcontrast imaging of the thoracic spine would be helpful in excluding any osseous metastatic lesions given the history. The post contrast imaging of the chest does not adequately evaluate the thoracic spine for this purpose. - On the localizer series and at the uppermost aspect of this study, at C4-C5, a large disc osteophyte protrusion results in potential severe central canal stenosis and significant mass effect on the cervical spinal cord that would be better assessed with a dedicated cervical spine MRI. - Mediastinum and chest are evaluated on the corresponding chest MRI. MR CHEST WITHOUT AND WITH CONTRAST 07/20/21 CLINICAL INFORMATION: Thyroid cancer. COMPARISON: Previous chest CT 09/14/2019. TECHNIQUE: Sagittal axial and coronal sequences through the chest were performed with and without contrast. Patient received 5.5 mL intravenous Gadavist contrast. FINDINGS: The lungs are clear. There are no enlarged hilar or mediastinal lymph nodes. There are small bilateral axillary lymph nodes. No supraclavicular lymphadenopathy is seen. There is triangular-shaped soft tissue seen in the anterior superior mediastinum likely representing residual thymic tissue. This is similar to previous chest CT scan. No evidence of a suspicious mediastinal mass is seen. The heart is normal in size. There is no pericardial effusion. Vascular structures are normal. There is no pleural effusion or pleural thickening. Images through the upper abdomen are unremarkable. Bony structures are unremarkable. MR/MR chest wo/w con IMPRESSION: Unremarkable exam. No change from September 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 Mother No problems noted. Maternal Aunt Colon cancer Maternal Grandmother Diabetes Dementia Brother Heart disease Social History Household Members: Children Housing: Apartment Are you a primary healthcare representative to a significant other at home: No Do you presently have visiting nurse or other home services: No Alcohol intake: current Alcohol intake frequency: holidays/special occasions only Alcohol type: beer Patient Tobacco Use Status: Former Tobacco user Tobacco use type: Cigarette Substance Use Type: Marijuana service: No Current occupational status: employed Current occupation: [employer] at [employer] Current occupational exposures/hazards: Yes (Stress, heavy lifting) Physical Exam Vital Signs: Last Vital Signs Pulse 51 09/07/24 08:41 BP 112/66 09/07/24 08:41 BMI result Body Mass Index 22.2 Assessment & Plan Assessment & Plan (1) History of thyroid cancer: Code(s): Z85.850 - Personal history of malignant neoplasm of thyroid Category: Medical Plan: 34-year-old female here today for follow up of multifocal follicular variant of PTC status post total thyroidectomy and with central lymph node dissection and right modified radical neck dissection on 08/18/2019 with largest focus of 4 cm with 6/38 lymph nodes positive, no AI/LI/ETE, margins negative, AJCC stage I (pT2 N1b MX), MILLER intermediate risk of recurrence, status post remnant ablation with 28.8 mCi of I 131 on 12/24/2019, then adjuvant treatment with 145.8 mCi of I 131 on 04/13/2020 currently MILLER excellent vs indeterminate response to therapy due to mildly elevated Tg intermittenly . She has also been followed at [facility] and has been getting recent ultrasound neck so were there, with most recent neck ultrasound in August 2024 which did not identify any abnormal lymph nodes. With suppressed TSH her TG levels have been less than 0.1, stimulated TG level in 2021 was 1.6, and most recently in August 2024, with TSH as high as 16.37, her thyroglobulin has been at 1.4, putting her in indeterminate response to therapy category. Though it was recommended by [facility] to keep her TSH somewhere between 0.4-2, now that she is greater than 5 years out of surgery, I would likely target it more on the lower side something around 0.5, as some data suggests she has excellent response to therapy versus some intermittently elevated TG levels that suggest indeterminate response to therapy. In indeterminate response, 15% to 20% we will have structural disease identified during follow-up, however in the remainder of the nonspecific changes are either stable or resolved, less than 1% have disease specific Plan: -ordered TSH, free T4 to be done in 6 weeks around [place] which would be 6 weeks from her last dose change of levothyroxine 88-100 mcg daily -TSH goal around 0.5 -next ultrasound neck would be August 2025 -continue levothyroxine 88 mcg daily as it was just changed 2 weeks ago (2) Postoperative hypothyroidism: Code(s): E89.0 - Postprocedural hypothyroidism Category: Medical Plan: With suppressed TSH her TG levels have been less than 0.1, stimulated TG level in 2021 was 1.6, and most recently in August 2024, with TSH as high as 16.37, her thyroglobulin has been at 1.4, putting her in indeterminate response to therapy category. Though it was recommended by [facility] to keep her TSH somewhere between 0.4-2, now that she is greater than 5 years out of surgery, I would likely target it more on the lower side something around 0.5, as some data suggests she has excellent response to therapy versus some intermittently elevated TG levels that suggest indeterminate response to therapy. Plan: -ordered TSH, free T4 to be done in 6 weeks around [place] Alok which would be 6 weeks from her last dose change of levothyroxine 88-100 mcg daily -TSH goal around 0.5 -continue levothyroxine 88 mcg daily as it was just changed 2 weeks ago Plan I spent 45 minutes in reviewing the record, seeing the patient and documenting in the medical record. More than 50% of this 45 minute visit was coordinating the patient's care, reviewing complex cancer records, obtaining history, documenting the patient's medical record, reviewing labs and radiology studies, education of the significance of current condition and therapy, scheduling in interpreting diagnostic test. Orders: Orders Free T4 (Free Thyroxine) 10/01/24 C73 - Malignant neoplasm of thyroid gland, E89.0 - Postprocedural hypothyroidism, Z85.850 - Personal history of malignant neoplasm of thyroid Thyroglobulin 10/01/24 E89.0 - Postprocedural hypothyroidism, Z85.850 - Personal history of malignant neoplasm of thyroid Thyroglobulin Antibodies 10/01/24 E89.0 - Postprocedural hypothyroidism, Z85.850 - Personal history of malignant neoplasm of thyroid Thyroglobulin Tumor Marker 10/01/24 E89.0 - Postprocedural hypothyroidism, Z85.850 - Personal history of malignant neoplasm of thyroid Thyroid Stimulating Hormone 10/01/24 C73 - Malignant neoplasm of thyroid gland, E89.0 - Postprocedural hypothyroidism, Z85.850 - Personal history of malignant neoplasm of thyroid Patient Instructions: Do labs around Ness alok Continue levothyroxine 100 mcg daily I will reach out with results Also will need blood work a week prior to your next follow up in 6 months Coding Level of Care Code Est Pt Level 5 (62491) Complex EM visit Add On G2211 Diagnoses History of thyroid cancer Z85.850 Postoperative hypothyroidism E89.0 Time Spent (min) 45
== END 2024-09-07 09:23 | disposition home or self-care (01) ==
PROVIDERS: PCP Nurse Practitioner Primary Care; Visit Provider Student in an Organized Health Care Education/Training Program
DX: E89.0 Postprocedural hypothyroidism (principal); Z85.850 Personal history of malignant neoplasm of thyroid
CPT/HCPCS: 99215

== ENCOUNTER → 2024-09-07 08:39 | Outpatient (BNVA) | payer MEDICAID, SELFPAY | PROVIDERS: PCP Nurse Practitioner Primary Care; Visit Provider Student in an Organized Health Care Education/Training Program | DX: E89.0 Postprocedural hypothyroidism (principal); C73 Malignant neoplasm of thyroid gland; Z85.850 Personal history of malignant neoplasm of thyroid | CPT/HCPCS: 99212 ==

== ENCOUNTER 2024-12-18 10:41 | Outpatient (REF) | payer MEDICAID, SELFPAY ==
[2024-12-18 12:24] LABS: Free T4 (Free Thyroxine) 1.01 ng/dL (0.71-1.85); Thyroid Stimulating Hormone 1.29 uIU/mL (0.32-4.0)
[2024-12-20 22:04] LABS: Thyroglobulin 0.2 ng/mL; Thyroglobulin Antibodies <1 IU/mL (< or = 1)
[2024-12-22 22:04] LABS: Thyroglobulin Antibody <1 IU/mL (<=1); Thyroglobulin Level 0.2 ng/mL
== END 2024-12-18 10:42 | disposition home or self-care (01) ==
LOC: HO.LAB 10:41
PROVIDERS: PCP Nurse Practitioner Primary Care; Visit Provider Student in an Organized Health Care Education/Training Program
DX: C73 Malignant neoplasm of thyroid gland (principal); E89.0 Postprocedural hypothyroidism; Z85.850 Personal history of malignant neoplasm of thyroid
CPT/HCPCS: 36415; 84432; 84439; 84443; 86800

== ENCOUNTER 2025-02-19 10:07 | Outpatient (REF) | payer MEDICAID, SELFPAY ==
[2025-02-19 11:28] LABS: Free T4 (Free Thyroxine) 1.36 ng/dL (0.71-1.85); Thyroid Stimulating Hormone 3.36 uIU/mL (0.32-4.0)
== END 2025-02-19 10:08 | disposition home or self-care (01) ==
LOC: HO.LAB 10:07
PROVIDERS: PCP Nurse Practitioner Primary Care; Visit Provider Student in an Organized Health Care Education/Training Program
DX: E89.0 Postprocedural hypothyroidism (principal); Z85.850 Personal history of malignant neoplasm of thyroid
CPT/HCPCS: 36415; 84439; 84443

== ENCOUNTER 2025-03-08 07:45 | Outpatient (AMB) | payer MEDICAID, SELFPAY ==
--- OUTSIDE RECORDS SUMMARY | 2025-03-08 07:48 | XMS_ITS | Clinical Summary ---
Author Organization [employer] Address [address] [facility] [facility] [address] [place] [address] Care Team Providers Care Alumni Secretary Name Role Phone Dotty Foreman NICHOL Primary Care Provider [phone] Allergies No known active allergies Medications * This document contains information received from the source organization and may not represent a complete record from that organization. levothyroxine (Synthroid, Levoxyl) 88 MCG tablet Take 88 mcg by mouth in the morning. Active Active Problems Problem Noted Date Diagnosed Date Anxiety 12/05/2023 Assessment & Plan (12/09/2023 3:59 PM EST): During IBH Consult Khushi presenting with depressed mood, loss of interests/pleasure , changes in sleep difficulty falling asleep, change in appetite or weight reduce appetite, psychomotor agitation, trouble concentrating, thoughts of worthlessness or guilt, fatigue/loss of energy, inappropriate guilt , hopelessness, difficulty concentrating, passive suicidal ideation w/o plan and excessive worry/anxiety, difficulty controlling worry, restless/keyed up/On edge, easily fatigued, difficulty concentrating/Mind going blank , irritability, muscle tension, and sleep disturbance difficulty falling asleep; for a period of 18+ mo, for all symptoms in the context of financial concern, marriage, and relationship issues. Khushi endorsed severe depressive sxs and panic attacks. She was emotionally overwhelmed and tearful. Difficult and unhealthy romantic relationship exacerbates symptoms. Khushi is not satisfied on how her life is going. She's ready to seek out for help and connect with services. PLAN: (check all that apply) New/Additional Services needed On-site non-integrated services Off-site services for Behavioral Health Integration Plan Internal Follow up with I External OP therapy referral Patient Self Plan Patient to utilize skills provided in intervention , Patient to reach out to [facility] team as needed, Comply with medication , Patient to engage in OP BH therapy , Patient to reach out to [facility] as needed, and Patient to follow-up with external team. Referral for OP individual therapy will be placed. Clinician will follow-up with patient. Recurrent major depressive disorder 12/05/2023 Assessment & Plan (12/09/2023 3:59 PM EST): During IBH Consult Khushi presenting with depressed mood, loss of interests/pleasure , changes in sleep difficulty falling asleep, change in appetite or weight reduce appetite, psychomotor agitation, trouble concentrating, thoughts of worthlessness or guilt, fatigue/loss of energy, inappropriate guilt , hopelessness, difficulty concentrating, passive suicidal ideation w/o plan and excessive worry/anxiety, difficulty controlling worry, restless/keyed up/On edge, easily fatigued, difficulty concentrating/Mind going blank , irritability, muscle tension, and sleep disturbance difficulty falling asleep; for a period of 18+ mo, for all symptoms in the context of financial concern, marriage, and relationship issues. Khushi endorsed severe depressive sxs and panic attacks. She was emotionally overwhelmed and tearful. Difficult and unhealthy romantic relationship exacerbates symptoms. Khushi is not satisfied on how her life is going. She's ready to seek out for help and connect with services. PLAN: (check all that apply) New/Additional Services needed On-site non-integrated services Off-site services for Behavioral Health Integration Plan Internal Follow up with I External OP therapy referral Patient Self Plan Patient to utilize skills provided in intervention , Patient to reach out to [facility] team as needed, Comply with medication , Patient to engage in OP BH therapy , Patient to reach out to [facility] as needed, and Patient to follow-up with external team. Referral for OP individual therapy will be placed. Clinician will follow-up with patient. Acquired hypothyroidism 01/09/2022 History of thyroidectomy 01/09/2022 Encounters Date Type Department Care Team Description 02/01/2025 Telephone [facility] [address] [place] [address] Dotty Foreman, ANP No Show 01/27/2025 Telephone [facility] [address] [place] [address] Dotty Foreman ANP chartprep 01/19/2025 Telephone [facility] [address] [place] [address] Dotty Foreman ANP Medication Question 12/24/2024 Population Health Risk Score Community [facility] ([facility]) Department [address] [place] [phone] Provider, Population Health Generic 12/18/2024 Orders Only GENERIC EXTERNAL DATA DEPARTMENT Provider, Generic External Data from Last 3 Months Family History Medical History Relation Name Comments Colon cancer Mother's Sister at 42 Autism spectrum disorder Son Relation Name Status Comments Mother's Sister Son Social History Tobacco Use Types Packs/Day Years Used Date Smoking Tobacco: Former Cigarettes Smokeless Tobacco: Never Tobacco Cessation:Counseling Given: Not Answered Depression Answer Date Recorded Patient Health Questionnaire-9 Score 23 12/09/2023 Patient Health Questionnaire-9 Score 23 12/09/2023 Last PHQ-9: Questionnaire Data Not on file 0 12/09/2023 Depression Answer Date Recorded Patient Health Questionnaire-2 Score 6 12/09/2023 Comments Unknown Sex and Gender Information Value Date Recorded Sex Assigned at Female 08/12/2022 10:30 AM EDT Legal Sex Female 10:30 AM EDT Gender Identity Female 08/12/2022 10:30 AM EDT Sexual Orientation Choose not to disclose 2021 10:30 AM EDT Last Filed Vital Signs Vital Sign Reading Time Taken Comments Blood Pressure 132/66 12/05/2023 11:29 AM EST Pulse 83 12/05/2023 11:29 AM EST Temperature 37.2 ??C (98.9 ??F) 12/05/2023 11:[address] Respiratory Rate 20 12/05/2023 11:29 AM EST Oxygen Saturation 98% 12/05/2023 11:29 AM EST Inhaled Oxygen Concentration - - Weight 59.2 kg (130 lb 9.6 oz) 12/05/2023 11:29 AM EST Height 152.4 cm (5') 03/20/2023 10:05 AM EDT Body Mass Index 25.51 03/20/2023 10:05 AM EDT Plan of Treatment Health Maintenance Due Date Last Done Comments SDOH Screening 1989 Disability Screening 1989 Alcohol/Substance Use Screening 2001 Family Planning (PISQ) 2004 Hepatitis C Screening 2007 Hepatitis B Vaccines (1 of 3 - 19+ 3-dose series) 2008 Cervical Cancer Screening 03/20/2024 HPV/Cotest 03/20/2024 03/20/2023, 0 06/2022, 03/21/2021, Additional history exists Pap Smear 03/20/2024 03/20/2023, 0 06/2022, 03/21/2021 COVID-19 Vaccine ( season) 2024 Influenza Vaccine (#1) 2024 08/14/2017 Tobacco Screening 12/05/2024 12/05/2023 Depression Screening 12/09/2024 12/09/2023, 12/09/19 24 DTaP/Tdap/Td Vaccines (2 - Td or Tdap) 02/17/2029 02/17/2019 Zoster Vaccines (1 of 2) 2039 RSV Patients and Patients Aged 60 years or older (1 - 1-dose 75+ series) 2064 HIV Screening Completed 03/21/2022, 03/21/2021 HIB Vaccines Aged Out No longer eligi ble based on patient's age to complete this topic HPV Vaccines Aged Out No longer eligi ble based on patient's age to complete this topic Hepatitis A Vaccines Aged Out No long er eligible based on patient's age to complete this topic IPV Vaccines Aged Out No longer eligi ble based on patient's age to complete this topic Meningococcal B Vaccine Aged Out No l onger eligible based on patient's age to complete this topic Meningococcal Vaccine Aged Out No leandra williams eligible based on patient's age to complete this topic Pneumococcal Vaccine: Pediatrics (0 to 5 Years) and At-Risk Patients (6 to 49) Years) Aged Out No longer eligible based on patient's age to complete this topic RSV under 20 months Aged Out No longe r eligible based on patient's age to complete this topic Rotavirus Vaccines Aged Out No longer eligible based on patient's age to complete this topic Procedures Procedure Name Priority Date/Time Associated Diagnosis Comments TSH Routine 02/19/2025 10:14 AM EDT T4, FREE Routine 02/19/2025 10:14 AM EDT THYROGLOBULIN, TUMOR MARKER W/REFLEX Routine 12/18/2024 10:57 AM EST THYROGLOBULIN ANTIBODIES Routine 12/18/2024 10:57 AM EST THYROGLOBULIN, LC/MS/MS Routine 12/18/2024 10:57 AM EST TSH Routine 12/18/2024 10:57 AM EST T4, FREE Routine 12/18/2024 10:57 AM EST IMAGE-GUIDED PAP W/AGE BASED SCR PROTOCOLS Routine 03/20/2023 11:13 AM EDT ASCUS of cervix with negative high risk HPV HIV 1/2 ANTIGEN/ANTIBODY, FOURTH GENERATION W/RFL Routine 03/21/2022 11:41 AM EDT from Last 3 Months or Most Recently Relevant to Health Maintenance Results * TSH (02/19/2025 10:14 AM EDT) Only the most recent of2 resultswithin the time period is included. Thyroid Stimulating Hormone 3.36 0.32 - 4.0 uIU/mL [facility] Comment:Note: A sustained TS H level above 2.5 uIU/mL may warrant further investigation. TSH 3rd Generation ([facility]) 02/19/2025 10:1 4 AM EDT 02/19/2025 10:14 AM EDT us Generic External Data Provider LAB BLOOD ORDERAB LES Final Result [facility] [address] [place] [phone] * T4, Free (02/19/2025 10:14 AM EDT) Only the most recent of2 resultswithin the time period is included. Free T4 (Free Thyroxine) 1.36 0.71 - 1.85 ng/dL [facility] 02/19/2025 10:1 4 AM EDT 02/19/2025 10:14 AM EDT Generic External Data Provider LAB BLOOD ORDERAB LES Final Result Performing Organization Address [facility] de Phone Number [facility] [address] [place] [phone] * (ABNORMAL) Thyroglobulin, LC/MS/MS (12/18/2024 10:57 AM EST) [facility] Thyroglobulin, LC/MS/MS 0.2(A) ng/mL [facility] Comment:Reference Range: Int act Thyroid 2.8-40.9 Athyrotic <0.1 Note: Abnormal flagging is based on the reference interval for patients with intact thyroid.This test was performed using the Madeline Coulterchemiluminescent method. Values obtained fromdifferent assay methods cannot be usedinterchangeably. Thyroglobulin levels, regardlessof value, should not be interpreted as absoluteevidence of the presence or absence of disease. Thyroglobulin Comment See Below [facility] Comment:Thyroglobulin antibo dies (TGAB) interfere withthyroglobulin (TG) assays; therefore, TGAB assayshould always be performed in conjunction with aTG assay.For additional information, please refer tohttp://education.[employer]/faq/PHP030(This link is being provided for informational/educational purposes only.)THIS TEST WAS PERFORMED AT:[facility] [place] [phone] ZHU MD 12/18/2024 10:5 7 AM EST 12/18/2024 10:57 AM EST us Generic External Data Provider LAB BLOOD ORDERAB LES Final Result Performing Organization Address [facility]/ZIP Co de Phone Number [facility] [address] [place] [phone] * (ABNORMAL) Thyroblobulin, Tumor Marker w/Reflex (12/18/2024 10:57 AM EST) Thyroglobulin Antibody <1 <=1 IU/mL [facility] Comment:This Thyroglobulin a ntibody test was performedusing the [employer] Chemiluminescent method.Values obtained from different assay methods cannot beused interchangeably. Thyroglobulin antibody levels,regardless of value, should not be interpreted asabsolute evidence of the presence or absence ofdisease. Thyroglobulin, LC/MS/MS TNP [facility] Thyroglobulin Level 0.2(A) ng/mL [facility] Comment:Reference Range: Ath yrotic: <0.1 ng/mLReference range applies to differentiated thyroidcancer patients following treatment. The presence ofmeasurable thyroglobulin indicates the presence ofthyroglobulin-producing thyroid tissue. Clinicalcorrelation is advised.This Thyroglobulin test was performed using theAgentPair Chemiluminescent method. Valuesobtained from different assay methods cannot beused interchangeably. Thyroglobulin levels, regardlessof value, should not be interpreted as absoluteevidence of the presence or absence of disease.THIS TEST WAS PERFORMED AT:[facility] [place] [phone] LEBRON MD,PHD 12/18/2024 10:5 7 AM EST 12/18/2024 10:57 AM EST Generic External Data Provider LAB BLOOD ORDERAB LES Final Result [facility] [address] [place] [phone] * Thyroglobulin Antibodies (12/18/2024 10:57 AM EST) Thyroglobulin Antibodies <1 < or = 1 IU/mL [facility] Comment:THIS TEST WAS PERFOR MED AT:[facility] [address] [phone] ZHU MD 12/18/2024 10:5 7 AM EST 12/18/2024 10:57 AM EST us Generic External Data Provider LAB BLOOD ORDERAB LES Final Result [facility] [address] [place] [phone] * (ABNORMAL) Image-Guided Pap with Age-Based Screening Protocols (03/20/2023 11:13 AM EDT) Comment [employer] Comment: This order for age-based cervical cancer and STI screening follows ACOG guidelines(PB 168, 140, BJW904). See individual assays for performing site location. Clinical Information: ASCUS HPV NEG 03/2022 [employer] LMP: NONE GIVEN [employer] Prev. PAP: NONE GIVEN [employer] Prev. BX: NONE GIVEN [employer] SOURCE: None given [employer] Statement Of Adequacy: [employer] Comment: Satisfactory for evaluation. Endocervical/transformation zone component absent. General Categorization: Cytology Results: Epithelial Cell Abnormality(A) [employer] Interpretation/ Result: Atypical Squamous Cells of Undetermined Significance (ASC-US)(A) [employer] COMMENT: This Pap test has been evaluated with computer assisted technology. [employer] Cytotechnologis t: [employer] [place] [employer] Comment: KN, CT(ASCP) CT screening location: [address] ??[address] PATHOLOGIST: [employer] [place] [employer] Comment: Aixa Gusman D.O. Board Certified in Anatomic, Clinical and Cytopathology (electronic signature) Consulting Pathologist [facility] [address] [place] [phone] (Always Message) [employer] Comment: EXPLANATORY NOTE: The Pap is a screening test for cervical cancer. It is not a diagnostic test and is subject to false negative and false positive results. It is most reliable when a satisfactory sample, regularly obtained, is submitted with relevant clinical findings and history, and when the Pap result is evaluated along with historic and current clinical information. HPV nRNA E6/E7 Not Detected Not Detected [employer] Comment: Methodology: Circus Hand-Mediated Amplification This assay detects E6/E7 viral messenger RNA (mRNA) from 14 high-risk HPV types (16,18,31,33,35,39,45,51,52,56,58,59,66,68). Cervical sources are required for HPV testing. If a vaginal source from a patient who has had a total hysterectomy with removal of cervix was submitted, please contact the testing laboratory for alternative testing options. For additional information, please refer to http://[employer]/faq/PTV981a4 (This link if provided for information/ educational purposes only.) Pap Vial 03/20/2023 11:1 3 AM EDT 03/21/2023 9:39 AM EDT Heydi Harding [facility] LAB BLOOD ORDERABLES Karrie l Result [facility] [address], [place] [phone] [facility] [address] [place] [phone] * HIV 1/2 ANTIGEN/ANTIBODY,FOURTH GENERATION W/RFL (03/21/2022 11:41 AM EDT) Pathologist [facility] HIV-1/2 ANTIGEN AND ANTIBODIES, 4TH GENERATION W/ REFLEX NON-REACT SUPRIYA NON-REACT SUPRIYA [facility] Comment: HIV-1 antigen and HIV-1/HIV-2 antibodies were not detected. There is no laboratory evidence of HIV infection. ?? PLEASE NOTE: This information has been disclosed to you from records whose confidentiality may be protected by state law. ??If your state requires such protection, then the state law prohibits you from making any further disclosure of the information without the specific written consent of the person to whom it pertains, or as otherwise permitted by law. A general authorization for the release of medical or other information is NOT sufficient for this purpose. ? For additional information please refer to http://education.[employer]/faq/KTN395 (This link is being provided for informational/ educational purposes only.) ? The performance of this assay has not been clinically validated in patients less than 2 years old. ?? 03/21/2022 11:4 1 AM EDT us Heydi Harding CNM LAB BLOOD ORDERABLES Karrie capps Result [facility] [address] from Last 3 Months or Most Recently Relevant to Health Maintenance Insurance [facility] C3 Care Teams Alumni Secretary Relationship Specialty Start Date End Date Dotty Foreman ANP [address] [place], [place] PCP - General Family Medicine 09/27/20
[2025-03-08 07:59] VITALS: BP 130/66; PULSE 56; O2SAT 96; BMI 22.5
--- NOTE | 2025-03-08 07:59 | MHC.OFFVIS ---
Vital Signs 03/08/25 07:59 Height 5 ft Weight 115 lb 1.301 oz BMI 22.5 BP 130/66 Blood Pressure Location Lt brachial Position Sitting Pulse 56 Pulse Source Pulse Oximeter Pulse Oximetry (%) 96 Oxygen Delivery Method Room Air Intake Visit Reasons: Thyroid cancer Intake Note: Patient present today for Thyroid cancer office visit. Print Inspector Required: No Accompanied by: Self / Same As Patient Allergies No Known Allergies [No Known Allergies*] Allergy (Verified 03/08/25 08:02) Medication List - Last Reconciled 03/08/25 by Yessica Davenport MD levothyroxine 112 mcg PO DAILY HPI Comments Details: 34-year-old female here today for follow up of multifocal follicular variant of PTC status post total thyroidectomy and with central lymph node dissection and right modified radical neck dissection on 08/18/2019 with largest focus of 4 cm with 6/38 lymph nodes positive, no AI/LI/ETE, margins negative, AJCC stage I (pT2 N1b MX), MILLER intermediate risk of recurrence, status post remnant ablation with 28.8 mCi of I 131 on 12/24/2019, then adjuvant treatment with 145.8 mCi of I 131 on 04/13/2020 currently MILLER excellent vs indeterminate response to therapy due to mildly elevated Tg intermittenly . History PTC in detail Mid 2019: Noted lump in the region of the thyroid shortly before delivery of her 3rd child. Thyroid ultrasound revealed multinodular goiter with large right-sided nodule measuring 3.1 cm, and a large left-sided nodule measuring 2.2 cm. Labs revealed subclinical hyperthyroidism with TSH of 0.03. Labs were repeated approximately 1 month later with slightly improved TSH of 0.09. Free T4 and total T3 remained within normal limits. Thyroid antibodies were all negative. She was unable to have an uptake and scan given that she was of the time. 05/20/2019: TSH 0.24, symptoms greatly improved 06/17/2019: FNA of 3 separate thyroid nodules L superior 1.2 cm nodule - cytology [place] Category II benign L inferior 2.0 cm nodule - cytology [place] Category II benign R superior 3.0 cm nodule - cytology [place] Category II Atypia of Undetermined Signifigance - Affirma suspicious. Late 2019: Dr. Mcdowell performed lateral neck ultrasound with finding of a large left-sided 2 cm enlarged cervical lymph node. FNA revealed thyroid cells with high suspicion for metastatic PTC. 08/18/2019: Total thyroidectomy with central lymph node dissection and right modified radical neck dissection with Dr. Lynsey Mcdowell at [facility] with the official pathology revealed multifocal papillary carcinoma of the thyroid, follicular variant which was 4 cm in greatest dimension. No angioinvasion or lymphatic invasion identified. Margins were uninvolved. She did have 5/10 central and /19 right lateral compartment lymph nodes positive for metastatic PTC. She did have a 1.1 cm nodule resected from the right cervical level 3 which was reported as metastatic nodule, and within this nodule there was a microscopic focus for follicular variant of PTC. AJCC stage I (pT2 N1b MX), MILLER intermediate to high-risk of recurrence. Also had reimplantation of the right superior and left inferior parathyroid glands. She did develop postoperative hypocalcemia with hypoparathyroidism and was on calcium citrate with calcitriol postoperatively, but eventually PTH recovered and she was able to come off these. She was kept off thyroid hormone replacement postoperatively in preparation for I 131 remnant ablation. 08/05/2019: CT of the head with contrast prior to her operation due to severe headaches revealed a venous anomaly, and she is following with intubation and Neurology at [facility]. 09/14/2019: Noncontrast CT of the chest revealed multiple subcentimeter pulmonary nodules and also a soft tissue density within the anterior mediastinum. No measurements were given. Due to this decision was made to initially ablate her with a remnant ablation dose of I 131 30 mCi, in order to visualize the soft tissue mass within the mediastinum which is proven to be iodine avid, would need high-dose adjuvant treatment with I 131. 12/24/2019: Status post remnant ablation with 28.8 mCi of I 131. Done by withdrawal method. 01/11/2020: Labs not done until this date, but these were while she remained off levothyroxine and TSH was 64.71 with TG 55.6, negative TG antibodies. 12/31/2019: Posttreatment whole-body scan revealed a focus of radioiodine in the right thyroid bed thought to represent residual thyroid tissue/disease as well as several foci of increased uptake within both lungs suspicious for pulmonary micrometastasis. Mediastinal lesion was not visualized. 04/13/2020: Underwent adjuvant treatment with 145.8 mCi of I 131. Posttreatment whole-body scan revealed there is no longer region of radioiodine uptake in the right thyroid bed. Almost complete resolution of uptake in both lungs with only 1 focus of increased uptake identified within the mid right lung without a definitive correlate seen on CT imaging suspicious for residual pulmonary micro metastasis. Distribution of radiotracer uptake was otherwise physiologic with no abnormal focus out identified outside of the neck. This was completed via the withdrawal method. Unfortunately TSH and TG levels were not received. Of note, her initial remnant ablation was delayed until 12/24/2019 due to her inconsistently following a low iodine diet. Urinary iodine levels had remained elevated until just prior to 12/24/2019. Posttreatment she was started on Levothyroxine. 10/03/2020 labs revealed a TSH of 0.22, TG level of 0.1 and negative TG antibodies. 01/19/2021 labs reveal TSH 0.15 with TG <0.1 and TGAb <1. 07/17/2021: Whole-body scan was completed via thyroid hormone withdrawal which revealed increased radiotracer uptake at the mid level of the sternum with no correlation on SPECT CT. There was also increased uptake noted at the T1 and T7 vertebra, also with no abnormality noted on SPECT CT. 07/10/2021: Labs TSH 88.2, TG 1.6, TG antibody negative 2020: MRI of the thoracic spine as well as chest which revealed a triangular shaped soft tissue mass visualized in the anterior superior mediastinum thought to likely represent residual thymus. She was also noted to have a large disc osteophyte at C4-C5 with protrusion with potential severe canal stenosis and significant mass effect on the cervical spinal cord. No other spinal abnormality was noted. She has been following with Neurology for this abnormality. 08/02/2021: PET-CT revealed mildly hypermetabolic lymph nodes in the right level 2B and left level 2B. There was also mildly increased FDG uptake noted in the anterior superior mediastinum with CT demonstrating a triangular soft tissue mass there thought to represent time is. No focal abnormality noted within the spine. 07/2021: She was ordered for ultrasound head and neck however consistently no showed for this. 09/18/2021: TSH 0.01, suppressed TG less than 0.1, TG antibodies in undetectable 12/12/2021: MRI of the chest revealed an unchanged triangular shaped soft tissue mass within the superior mediastinum. Per results if additional imaging this represented normal slightly hyperplastic thymus. 02/13/2022: Ultrasound head and neck reveals to have normal-appearing cervical lymph nodes, right level 2, 1.4 cm and a left level 2, 1.1 cm lymph node. She was referred to Dr. Sienna Brown for FNA biopsy of these lymph nodes to assess for any recurrence in the cervical chain. 04/17/2022: Evaluated by Dr. Sienna Marmolejo at [facility], [place]: no abnormal lymph nodes found, TG was found to be undetectable. Recommendation was made to continue screening solely with TG levels and for a goal TSH of 0.1-0.5 for 3-5 years postoperatively and then 0.4-2. She used to be on levothyroxine 150 mcg daily at some point, this was reduced due to continuously suppressed TSH at some point in 2021, unclear exactly when. 04/19/2022: TSH suppressed, TG antibodies negative, TG less than 0.4?. 03/27/23: tsh 0.08, free t4 1.19, tg <0.1, tg ab <1 06/02/23: tsh 0.07, free t4 1.27 06/25/2023: Ultrasound head and neck did not show any suspicious soft tissue mass within the thyroidectomy bed. Showed a 1.6 X 0.7 next 1.5 cm right submandibular node with internal calcification considered as of normal morphology of uncertain significance. 09/19/23: tsh 1.59, free t4 1.17, tg 0.28, tg ab <0.4 10/04: US neck done with Dr. Vasquez : postrerior to carotid artery in left level IV a flat node measuring 10.5x 0.2 x 0.5 cm with no microcal or vascular flow (looked at report in pt's phone), left level 4 oval node 1.1 x 0.4x0.7 cm normal morphology 2023 TSH 1.5, Tg 0.28 (up from <0.1 but TSH was previousl ysuppressed ) 08/24/24: Dr. Emily Gates did US at [facility] i don not have this report but looked at it in patient phone [facility] said no abnormal LNs noted, left latera level 2, 7x3x[address]with hilum. 08/24/24: TSH 13.37, free t4 0.86, levothyroxine changed to 100 mcg daily from 88 mcg daily dose of levothyroxine changed to 100 mcg daily from 88 mcg daily 09/01/24: TSH 16.37, free T4 0.98, thyroglobulin 1.4, TG antibodies less than 1 Interval history 12/18/2024: TSH 1.29, free T4 1.01, thyroglobulin 0.2, thyroglobulin antibody less than 1 Levothyroxine increased to 112 mcg daily with goal TSH around 0.5 02/19/2025: TSH 3.36, free T4 1.36, says sometimes she misses the dose of levothyroxine about once a week and sometimes she takes it later at night instead of in the morning. Weight stable Denies compressive symtpms Complaining fo excessive tiredness whihc is persistent , also complaining of some joint pains which she has not discussed with her PCP. Physical exam General: sitting comfortably in no acute distress HEENT: normocephalic/atraumatic, Neck: supple, symmetrical, no palpable masses Cardiac: normal heart sounds Pulm: normal breath sounds B/L, no added breath sounds Abd: not distended, no tenderness Extremities: no edema, no signs of myxedema Neuro: AAO x3, Speech: normal, no facial droop, moving all 4 extremities Laboratory Tests 03/17/19 04/12/19 05/20/19 13:45 14:10 15:14 TSH Free T4 1.12 0.86 0.99 Thyroglobulin Thyroglobulin Antibody 06/16/19 09/08/19 10/21/19 09:50 15:35 14:35 TSH Free T4 0.87 Thyroglobulin 30.7 17.3 H Thyroglobulin Antibody 01/11/20 02/18/20 03/27/20 12:10 16:05 12:15 TSH Free T4 < 0.40 L 1.01 Thyroglobulin 55.6 H 2.3 L 3.9 Thyroglobulin Antibody 06/13/20 07/28/20 10/03/20 10:39 14:30 09:50 TSH 0.25 L 0.22 L Free T4 1.77 1.26 Thyroglobulin 0.8 L 0.1 L Thyroglobulin Antibody <1 <1 11/28/20 01/19/21 04/17/21 11:35 09:25 09:50 TSH 0.02 L 0.15 L < 0.01 L Free T4 1.42 1.22 1.53 Thyroglobulin <0.1 L <0.1 L <0.1 L Thyroglobulin Antibody <1 <1 <1 05/25/21 07/02/21 07/10/21 13:00 15:23 13:16 TSH 0.01 L 30.41 H 88.20 H Free T4 1.65 < 0.40 L Thyroglobulin 0.1 L 1.6 L Thyroglobulin Antibody <1 <1 09/18/21 11/21/21 01/02/22 11:38 10:40 12:30 TSH 0.01 L < 0.01 L Free T4 1.45 1.55 Thyroglobulin <0.1 L <0.1 L <0.1 L Thyroglobulin Antibody <1 <1 <1 01/02/22 02/13/22 04/19/22 12:47 13:52 10:15 TSH < 0.01 L < 0.01 L < 0.01 L Free T4 1.68 1.86 H 1.29 Thyroglobulin <0.1 L <0.1 L Thyroglobulin Antibody <1 <1 07/31/22 09/23/22 01/08/23 15:21 10:11 11:49 TSH < 0.01 L < 0.01 L < 0.01 L Free T4 1.80 1.71 1.19 Thyroglobulin 0.1 L Thyroglobulin Antibody <1 02/18/23 03/27/23 06/02/23 11:37 09:35 15:24 TSH 0.06 L 0.08 L 0.07 L Free T4 1.20 1.19 1.27 Thyroglobulin 0.1 L Thyroglobulin Antibody <1 07/22/23 10/28/23 09/01/24 10:00 12:40 06:23 TSH 1.27 0.67 16.37 H Free T4 1.00 1.21 0.98 Thyroglobulin 1.4 L Thyroglobulin Antibody <1 Laboratory Tests 12/18/24 02/19/25 10:57 10:14 TSH 1.29 3.36 Free T4 1.01 1.36 Thyroglobulin 0.2 H Thyroglobulin Antibody <1 ADDENDUMBerto Lemons confirmed receipt of these findings and recommendations with Sakshi HOWARD at the office of ordering provider David Suggs, at 11:49 AM 06/30/2023. Addendum Dictated By: Veronica Arizmendi MD Addendum Signed By: <Electronically signed by Veronica Arizmendi MD in [place]> 06/30/23 1151 Addendum Cosigned By: : 06/25/23/ EXAMINATION: US SOFT TISSUE OF THE NECK CLINICAL INFORMATION: Malignant neoplasm of thyroid gland. COMPARISON: Ultrasound soft tissue neck 02/13/2022. CT soft tissue neck 08/05/2019. Ultrasound soft tissue head/neck thyroid dated 03/04/2019. TECHNIQUE: Linear transducer grayscale and color Doppler examination of the thyroid bed and surrounding soft tissue. FINDINGS: Status post total thyroidectomy. No suspicious soft tissue within the thyroidectomy bed. A 1.6 x 0.7 x 1.5 cm right submandibular node appears to demonstrate internal calcification which would be abnormal morphology of uncertain which node on prior may be the correlate and recommend consideration of tissue sampling. US/US thyroid IMPRESSION: 1. A 1.6 x 0.7 cm right submandibular node appears to demonstrate internal calcification which would be abnormal morphology and recommend consideration of tissue sampling. 2. Status post total thyroidectomy. No suspicious soft tissue within the thyroidectomy bed. The report will be called to the ordering clinician by a [place] [employer] [employer]. US SOFT TISSUE NECK 02/13/22 CLINICAL INFORMATION: Personal history of malignant neoplasm of thyroid. COMPARISON: Ultrasound soft tissue head/neck thyroid dated 04/26/2019 and 03/04/2019. TECHNIQUE: Ultrasound of the neck soft tissues is performed with high- frequency deras-scale imaging and color Doppler. FINDINGS: THYROID BED: Patient appears be status post right thyroidectomy as well as question partial left thyroidectomy with on the provided imaging a question of some residual thyroid tissue within the thyroid bed. RIGHT NECK SOFT TISSUES: There are numerous right neck lymph nodes present. The largest nodes are as follows: Level VB: 9 x 4 x 7 mm. Normal alonzo architecture. No cortical thickening or lobulation. Level VB: 7 x 4 x 6 mm. Normal alonzo architecture. No cortical thickening or lobulation. Level II:14 x 6 x 13 mm. The appearance is abnormal with no definite fatty hilum identified and question of cortical thickening. The lymph node is smoothly demarcated. Level II: 7 x 3 x 5 mm. Normal architecture without cortical thickening or lobulation. Level II: 13 x 5 x 11 mm. Normal alonzo architecture without cortical thickening or lobulation. Level IB: 8 x 3 x 9 mm. Normal alonzo architecture without cortical thickening or lobulation. Level IB: 8 x 5 x 10 mm. Normal alonzo architecture without cortical thickening or lobulation. LEFT NECK SOFT TISSUES: There are numerous left neck lymph nodes present. The largest nodes are as follows: Level VB: 8 x 1 x 8 cm. Normal alonzo architecture. Level II: 7 x 3 x 5 cm. Normal alonzo architecture. Level II: 11 x 5 x 6 mm. It appears abnormal with lack of fatty hilum, however, no cortical thickening or lobulation is appreciated. Level III: 20 x 4 x 7 mm. Normal architecture without evidence of cortical thickening or lobulation. Level IB: 11 x 5 x 11 mm. Normal alonzo architecture without cortical thickening or lobulation. US/US soft tiss head and/or neck IMPRESSION: 1. Question abnormal lymph nodes without fatty clefts on the right at level II and on the left at level II as described. 2. Question small amount of residual thyroid tissue within the left thyroid bed on the provided images. MRI chest 12/12/21 ADDENDUM Addendum: The patient returned for additional axial in-phase, [id number]-[id number] gradient echo sequences through the chest with phase and frequency directions reversed. There is signal loss to soft tissue in the anterior mediastinum on [id number] sequences suggestive of fatty normal thymus or thymic hyperplasia. Addendum Dictated By: Josi Land MD Addendum Signed By: <Electronically signed by Josi Land MD in [place]> 01/04/22 1643 Addendum Cosigned By: DD/ /04/1104 TD/TT: / EXAMINATION: MR CHEST WITHOUT AND WITH CONTRAST CLINICAL INFORMATION: Thyroid cancer. COMPARISON: Previous chest MRI July [address] September 2019 TECHNIQUE: Sagittal axial and coronal sequences through the chest with and without contrast. The patient received 5 mL intravenous gadolinium contrast. FINDINGS: The lungs are clear. There are no enlarged hilar or mediastinal lymph nodes. The heart does not appear enlarged. There is no pericardial effusion. There is triangular-shaped soft tissue seen in the anterior superior mediastinum likely representing residual thymic tissue that is stable. There is no pleural effusion or pleural thickening. No chest wall mass or enlarged axillary lymph nodes are seen. The bony structures are unremarkable. Images of the upper abdomen are unremarkable. MR/MR chest wo/w con IMPRESSION: Unremarkable exam. No change from previous chest MRI July 2021. MR THORACIC SPINE WITHOUT AND WITH CONTRAST 07/20/21 CLINICAL INFORMATION: Malignant neoplasm of the thyroid gland. COMPARISON: Chest CT 09/14/2019. TECHNIQUE: MRI of the thoracic spine was obtained using routine sequences with and without contrast. Intravenous contrast: Gadavist 5.5 mL. FINDINGS: No dedicated postcontrast imaging of the thoracic spine is available at the time of dictation. Dedicated postcontrast imaging of the thoracic spine would be helpful in excluding any osseous metastatic lesions given the history. The post contrast imaging of the chest does not adequately evaluate the thoracic spine for this purpose. On the noncontrast portion of the thoracic spine MRI there is no evidence of bone marrow replacement. There is no bone marrow edema. Inferior chronic endplate Schmorl's node at T8. On the localizer series and at the uppermost aspect of this study, at C4-C5, a large disc osteophyte protrusion results in potential severe central canal stenosis and significant mass effect on the cervical spinal cord that would be better assessed with a dedicated cervical spine MRI. Mild spondylitic changes throughout the thoracic spine. No severe central canal stenosis and no severe foraminal stenosis. Neural foraminal fat is preserved throughout the thoracic spine. No thoracic cord signal abnormality. No thoracic cord compression. Prominent dorsal subcutaneous fat within the imaged lower neck. MR/MR thoracic spine wo/w con IMPRESSION: - No dedicated postcontrast imaging of the thoracic spine is available at the time of dictation. Dedicated postcontrast imaging of the thoracic spine would be helpful in excluding any osseous metastatic lesions given the history. The post contrast imaging of the chest does not adequately evaluate the thoracic spine for this purpose. - On the localizer series and at the uppermost aspect of this study, at C4-C5, a large disc osteophyte protrusion results in potential severe central canal stenosis and significant mass effect on the cervical spinal cord that would be better assessed with a dedicated cervical spine MRI. - Mediastinum and chest are evaluated on the corresponding chest MRI. MR CHEST WITHOUT AND WITH CONTRAST 10/8/21 CLINICAL INFORMATION: Thyroid cancer. COMPARISON: Previous chest CT 09/14/2019. TECHNIQUE: Sagittal axial and coronal sequences through the chest were performed with and without contrast. Patient received 5.5 mL intravenous Gadavist contrast. FINDINGS: The lungs are clear. There are no enlarged hilar or mediastinal lymph nodes. There are small bilateral axillary lymph nodes. No supraclavicular lymphadenopathy is seen. There is triangular-shaped soft tissue seen in the anterior superior mediastinum likely representing residual thymic tissue. This is similar to previous chest CT scan. No evidence of a suspicious mediastinal mass is seen. The heart is normal in size. There is no pericardial effusion. Vascular structures are normal. There is no pleural effusion or pleural thickening. Images through the upper abdomen are unremarkable. Bony structures are unremarkable. MR/MR chest wo/w con IMPRESSION: Unremarkable exam. No change from September 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 Mother No problems noted. 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 [employer] Current occupational exposures/hazards: Yes (Stress, heavy lifting) Assessment & Plan Assessment & Plan (1) History of thyroid cancer: Code(s): Z85.850 - Personal history of malignant neoplasm of thyroid Category: Medical Plan: 34-year-old female here today for follow up of multifocal follicular variant of PTC status post total thyroidectomy and with central lymph node dissection and right modified radical neck dissection on 08/18/2019 with largest focus of 4 cm with 6/38 lymph nodes positive, no AI/LI/ETE, margins negative, AJCC stage I (pT2 N1b MX), MILLER intermediate risk of recurrence, status post remnant ablation with 28.8 mCi of I 131 on 12/24/2019, then adjuvant treatment with 145.8 mCi of I 131 on 04/13/2020 currently MILLER excellent vs indeterminate response to therapy due to mildly elevated Tg intermittenly . She has also been followed at [facility] and has been getting recent ultrasound neck so were there, with most recent neck ultrasound in August 2024 which did not identify any abnormal lymph nodes. With suppressed TSH her TG levels have been less than 0.1, stimulated TG level in 2021 was 1.6, and most recently in August 2024, with TSH as high as 16.37, her thyroglobulin has been at 1.4, putting her in indeterminate response to therapy category. Though it was recommended by [facility] to keep her TSH somewhere between 0.4-2, as she is greater than 5 years out of surgery, however I would likely target it more on the lower side of that range, as some data suggests she has excellent response to therapy versus some intermittently elevated TG levels that suggest indeterminate response to therapy. At this time most recent TSH from February 2025 was at 3.36 however patient has been missing some doses of levothyroxine. I will keep her on the same dose. Advised about good administration. Most recent tumor markers from December 2024 with TG of 0.2, , TG antibody negative, with TSH of 1.29. In indeterminate response, 15% to 20% we will have structural disease identified during follow-up, however in the remainder of the nonspecific changes are either stable or resolved, less than 1% have disease specific Plan: -ordered TSH, free T4 to be done in 8 weeks, we will reach out with the results -TSH goal around 0.5 -ordered ultrasound of the neck to be done in 3 months sometime end of May 2025 -continue levothyroxine 112 mcg daily, better adherence advised (2) Postoperative hypothyroidism: Code(s): E89.0 - Postprocedural hypothyroidism Category: Medical Plan: With suppressed TSH her TG levels have been less than 0.1, stimulated TG level in 2021 was 1.6, and most recently in August 2024, with TSH as high as 16.37, her thyroglobulin has been at 1.4, putting her in indeterminate response to therapy category. Though it was recommended by [facility] to keep her TSH somewhere between 0.4-2, as she is greater than 5 years out of surgery, however I would likely target it more on the lower side of the range, as some data suggests she has excellent response to therapy versus some intermittently elevated TG levels that suggest indeterminate response to therapy. At this time most recent TSH from February 2025 was at 3.36 however patient has been missing some doses of levothyroxine. I will keep her on the same dose. Advised about good administration. Plan: -ordered TSH, free T4 to be done in 8 weeks, we will reach out with the reason -TSH goal around 0.5 -continue levothyroxine 112 mcg daily -follow up in 3 months Plan See above Orders: Orders US soft tiss head and/or neck 3 Months Z85.850 - Personal history of malignant neoplasm of thyroid Thyroid Stimulating Hormone 8 Weeks Z85.850 - Personal history of malignant neoplasm of thyroid Free T4 (Free Thyroxine) 8 Weeks Z85.850 - Personal history of malignant neoplasm of thyroid Patient Instructions: Do labs in 8 weeks , orders in place Please continue taking levothyroxine 112 mcg daily, first thing in the morning on a empty stomach and wait an hour before you have breakfast/ coffee/ tea Do ultrasound of the neck in 3 months a few weeks prior to your next visit with me , someone will call you to schedule this Coding Level of Care Code Est Pt Level 4 (41507) Complex EM visit Add On G2211 Diagnoses History of thyroid cancer Z85.850 Postoperative hypothyroidism E89.0
== END 2025-03-08 08:16 | disposition home or self-care (01) ==
LOC: HO.ENCR 07:46
PROVIDERS: PCP Nurse Practitioner Primary Care; Visit Provider Student in an Organized Health Care Education/Training Program
DX: Z85.850 Personal history of malignant neoplasm of thyroid (principal); E89.0 Postprocedural hypothyroidism
CPT/HCPCS: 99214

== ENCOUNTER → 2025-03-08 07:45 | Outpatient (BNVA) | payer MEDICAID, SELFPAY | PROVIDERS: PCP Nurse Practitioner Primary Care; Visit Provider Student in an Organized Health Care Education/Training Program | DX: E89.0 Postprocedural hypothyroidism (principal); Z85.850 Personal history of malignant neoplasm of thyroid | CPT/HCPCS: 99212 ==

== ENCOUNTER 2025-04-07 11:54 | Outpatient (REF) | payer MEDICAID, SELFPAY ==
--- NOTE | ~2025-04-07 | US_ITS ---
CLINICAL HISTORY: Z85.850 - Personal history of malignant neoplasm of thyroid Ultrasound neck soft tissues Comparison: No prior studies of any type Findings: There has been thyroidectomy. Seven lymph nodes noted in right neck. Largest measures 1.8 x 0.6 cm. Two lymph nodes noted in the left neck. Larger of the 2 measures 1.0 x 0.6 cm. Prior measurements are included on worksheet. However, no images are submitted for comparison. Impression: Bilateral neck lymph nodes This document has been electronically signed by: Kasi Powell MD on 04/07/2025 19:14:12
--- OUTSIDE RECORDS SUMMARY | 2025-04-07 14:17 | XMS_ITS | Clinical Summary ---
Author Organization [employer] Address [address] [facility] [address] [place] [address] Care Team Providers Care Migration Specialist Name Role Phone Dotty Foreman NICHOL Primary Care Provider [phone] Allergies No known active allergies Medications * This document contains information received from the source organization and may not represent a complete record from that organization. levothyroxine (Synthroid, Levoxyl) 88 MCG tablet Take 88 mcg by mouth in the morning. Active Active Problems Problem Noted Date Diagnosed Date Vascular abnormality of brain 03/11/2025 Anxiety 12/05/2023 Assessment & Plan (12/09/2023 3:59 [...] Health Integration Plan Internal Follow up with [facility] External OP therapy referral Patient Self Plan Patient to utilize skills provided in intervention , Patient to reach out to [facility] team as needed, Comply with medication , Patient to engage in OP therapy , Patient to reach out to [facility] as needed, and Patient to follow-up with external team. Referral for OP individual therapy will be placed. Clinician will follow-up with patient. Recurrent major depressive disorder 12/05/2023 Assessment & Plan (12/09/2023 3:59 PM EST): During IB Consult Khushi presenting with depressed mood, loss [...] Health Integration Plan Internal Follow up with [facility] External OP therapy referral Patient Self Plan Patient to utilize skills provided in intervention , Patient to reach out to [facility] team as needed, Comply with medication , Patient to engage in OP therapy , Patient to reach out to [facility] as needed, and Patient to follow-up with external team. Referral for OP individual therapy will be placed. Clinician will follow-up with patient. Acquired hypothyroidism 01/09/2022 History of thyroidectomy 01/09/2022 Malignant tumor of thyroid gland 08/18/2019 Encounters Date Type Department Care Team Description 03/11/2025 Telephone [facility] [address] [place] [phone] Janis Juarez MA Chart Prep 03/10/[address] [address] Dotty Foreman ANP Nurse Triage 02/01/[address] [address] Dotty Foreman ANP No Show 01/27/[address] [address] Dotty Foreman ANP chartprep 01/19/[address] [address] Dotty Foreman ANP Medication Question from Last 3 Months Immunizations Immunization Administration Dates Next Due Influenza injectable quadriv alent IIV4 with preservative 08/14/2017 Tdap 02/17/2019 Family History Medical History Relation Name Comments [...] 83 12/05/2023 11:29 AM EST Temperature 37.2 C (98.9 F) 12/05/2023 11:29 AM EST Respiratory Rate 20 12/05/2023 11:29 AM EST [...] Additional history exists Pap Smear 03/20/2024 03/20/2023, 06/2022, 03/21/2021 Depression Monitoring 06/08/2024 12/09/2023, 024 COVID-19 Vaccine ( season) 2024 Tobacco Screening 12/05/2024 12/05/2023 Influenza Vaccine (Season Ended) 2025 08/14/2017 DTaP/Tdap/Td Vaccines (2 - Td or Tdap) [...] Years) and At-Risk Patients (6 to 49) Years Aged Out No longer eligible based on [...] T4, FREE Routine 02/19/2025 10:14 AM EDT IMAGE-GUIDED PAP W/AGE BASED SCR PROTOCOLS Routine 03/20/2023 11:13 AM EDT ASCUS of cervix with negative high risk HPV HIV 1/2 ANTIGEN/ANTIBODY, FOURTH GENERATION W/RFL Routine 03/21/2022 11:41 AM EDT from Last 3 Months or Most Recently Relevant to Health Maintenance Results * TSH (02/19/2025 10:14 AM EDT) Thyroid Stimulating Hormone 3.36 0.32 - 4.0 uIU/mL [facility] Comment:Note: A sustained TS H level above 2.5 uIU/mL may warrant further investigation. TSH 3rd Generation ([facility]) 02/19/2025 10:1 4 AM EDT 02/19/2025 10:14 AM EDT us Generic External Data Provider LAB BLOOD ORDERAB LES Final Result Performing Organization Address [facility] Co de Phone Number [facility] [address] [place] [phone] * T4, Free (02/19/2025 10:14 AM EDT) Free T4 (Free Thyroxine) 1.36 0.71 - 1.85 ng/dL [facility] 02/19/2025 10:1 4 AM EDT 02/19/2025 10:14 AM EDT Generic External Data Provider LAB BLOOD ORDERAB LES Final Result Performing Organization Address City/[facility]/ZIP Co de Phone Number [facility] [address] [place] [phone] * (ABNORMAL) Image-Guided Pap with Age-Based Screening Protocols (03/20/2023 11:13 AM EDT) Comment [facility] Comment: This order for age-based cervical cancer and STI screening follows ACOG guidelines(PB 168, 140, KIW426). See individual assays for performing site location. Clinical Information: ASCUS HPV NEG 03/2022 [facility] LMP: NONE GIVEN [facility] Prev. PAP: NONE GIVEN [facility] Prev. BX: NONE GIVEN [facility] SOURCE: None given [facility] Statement Of Adequacy: [facility] Comment: Satisfactory for evaluation. Endocervical/transformation zone component absent. General Categorization: Cytology Results: Epithelial Cell Abnormality(A) [facility] Interpretation/ Result: Atypical Squamous Cells of Undetermined Significance (ASC-US)(A) [facility] COMMENT: This Pap test has been evaluated with computer assisted technology. [facility] Cytotechnologis t: [facility] Comment: KN, CT(ASCP) CT screening location: [address] [address] PATHOLOGIST: [facility] Comment: Aixa Gusman D.O. Board Certified in Anatomic, Clinical and Cytopathology (electronic signature) Consulting Pathologist [facility] [address] [place] [phone] (Always Message) [facility] Comment: EXPLANATORY NOTE: The Pap is a [...] HPV nRNA E6/E7 Not Detected Not Detected [facility] Comment: Methodology: Data Warehousing Manager-Mediated Amplification This assay detects E6/E7 viral messenger RNA (mRNA) from 14 high-risk HPV types (16,18,31,33,35,39,45,51,52,56,58,59,66,68). Cervical sources are required for HPV testing. If a vaginal source from a patient who has had a total hysterectomy with removal of cervix was submitted, please contact the testing laboratory for alternative testing options. For additional information, please refer to http://[employer]/faq/QHH723j4 (This link if provided for information/ educational purposes only.) Pap Vial 03/20/2023 11:1 3 AM EDT 03/21/2023 9:39 AM EDT Heydi Harding [facility] LAB BLOOD ORDERABLES Karrie capps Result [facility] [address], [place] [address] [facility] [address] [place] [address] * HIV 1/2 ANTIGEN/ANTIBODY,FOURTH GENERATION W/RFL (03/21/2022 11:41 AM EDT) Pathologist [facility] HIV-1/2 ANTIGEN AND ANTIBODIES, 4TH GENERATION W/ REFLEX NON-REACT SUPRIYA NON-REACT SUPRIYA [facility] Comment: HIV-1 antigen and HIV-1/HIV-2 antibodies were not detected. There is no laboratory evidence of HIV infection. PLEASE NOTE: This information has been disclosed to you from records whose confidentiality may be protected by state law. If your state requires such protection, then the state law prohibits you from making any further disclosure of the information without the specific written consent of the person to whom it pertains, or as otherwise permitted by law. A general authorization for the release of medical or other information is NOT sufficient for this purpose. For additional information please refer to http://[employer]/faq/JRR128 (This link is being provided for informational/ educational purposes only.) The performance of this assay has not been clinically validated in patients less than 2 years old. 03/21/2022 11:4 1 AM EDT Heydi Harding CNM LAB BLOOD ORDERABLES Karrie capps Result [facility] [address] from Last 3 Months or Most Recently Relevant to Health Maintenance Insurance [facility] C3 Care Teams Migration Specialist Relationship Specialty Start Date End Date Dotty Foreman ANP [address] [place] [phone] PCP - General Family Medicine 09/27/20
== END 2025-04-07 11:55 | disposition home or self-care (01) ==
LOC: HO.HMGCX 11:54
PROVIDERS: PCP Nurse Practitioner Primary Care; Visit Provider Student in an Organized Health Care Education/Training Program
DX: Z85.850 Personal history of malignant neoplasm of thyroid (principal)
CPT/HCPCS: 76536

== ENCOUNTER → 2025-04-07 11:55 | Outpatient (BNV) | payer MEDICAID, SELFPAY | PROVIDERS: PCP Nurse Practitioner Primary Care; Visit Provider Radiology Diagnostic Radiology | DX: R59.0 Localized enlarged lymph nodes (principal) | CPT/HCPCS: 76536 ==

== ENCOUNTER 2025-06-25 09:59 | Outpatient (REF) | payer MEDICAID, SELFPAY ==
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
--- OUTSIDE RECORDS SUMMARY | 2025-06-25 10:03 | XMS_ITS | Clinical Summary ---
Author Organization [facility] Address [address] [place] [phone] Phone Care Team Providers Care Community Board Member Name Role Phone Nguyen Mcclelland MD Primary Care Provider + Allergies No known active allergies Medications sertraline (ZOLOFT) 25 MG tablet Take 10 mg by mouth daily. Active Social History Tobacco Use Types Packs/Day Years Used Date Smoking Tobacco: Never Assessed Education Answer Date Recorded Are you interested in more education? Not on yolie e 02/07/2023 Are you concerned about learning? Not on file 02/07/2023 No 02/07/2023 No 02/07/2023 Digital Access Answer Date Recorded No 03/08/2023 No 03/08/2023 No 03/08/2023 Reliable internet access at home? Not on file 03/08/2023 Device with a working camera? Not on file Comments Unknown Sex and Gender Information Value Date Recorded Sex Assigned at Female 08/09/2019 12:27 PM EDT Legal Sex Female 12:18 PM EDT Gender Identity Female 08/09/2019 12:27 PM EDT Sexual Orientation Straight 08/09/2019 12 :27 PM EDT Plan of Treatment Health Maintenance Due Date Last Done Comments Adult Td,Tdap Booster 1989 DEPRESSION SCREENING 2001 SMOKING Hx and SMOKELESS TOB ACCO SCREENING 2002 HEPATITIS C SCREENING 2007 HIV ONE-TIME SCREENING (18-6 5 YEARS) 2007 PAP SMEAR 2010 INFLUENZA VACCINE (#1) 2025 COVID-19 VACCINE ( - 2023-2 5 season) 2025 HEPATITIS A VACCINES Aged Out No long er eligible based on patient's age to complete this topic HIB VACCINES Aged Out No longer eligi ble based on patient's age to complete this topic MENINGOCOCCAL VACCINES (ACWY) Aged Out No longer eligible based on patient's age to complete this topic MENINGOCOCCAL VACCINES (B) Aged Out N o longer eligible based on patient's age to complete this topic PNEUMOCOCCAL VACCINES (0-49 years) Aged Out No longer eligible based on patient's age to complete this topic Medical Devices Not on file Insurance C3 ACO C3 ACO COOPERATIVE C3 ACO C3 ACO C3 ACO C3 ACO C3 ACO [place] [place] [address] [place] [address] C3 ACO Care Teams Community Board Member Relationship Specialty Start Date End Date Nguyen Mcclelland MD PCP - General Internal Medicine 08/09/19 Additional Source Comments The information contained in this document represents components of the legal health record. It is not the complete legal health record.[facility]
[2025-06-25 12:19] LABS: Free T4 (Free Thyroxine) 1.40 ng/dL (0.71-1.85); Thyroid Stimulating Hormone 0.07 uIU/mL (0.32-4.0)
== END 2025-06-25 10:00 | disposition home or self-care (01) ==
LOC: HO.LAB 09:59
PROVIDERS: PCP Nurse Practitioner Primary Care; Visit Provider Student in an Organized Health Care Education/Training Program
DX: Z85.850 Personal history of malignant neoplasm of thyroid (principal)
CPT/HCPCS: 36415; 84439; 84443

== ENCOUNTER 2025-07-13 09:40 | Outpatient (REF) | payer MEDICAID, SELFPAY ==
--- OUTSIDE RECORDS SUMMARY | 2025-07-13 09:00 | XMS_ITS | Encounter Summary ---
Author Organization [email or web address] Address [address] [place] [address] Care Team Providers Care Opera Singer Name Role Phone Ahsan Dotty GANDARA Primary Care Provider [phone] Reason for Visit * Reason Comments pap Encounter Details Date Type Department Care Team (Latest Contact Info) Description 07/13/2025 9:00 AM EDT Procedure Visit [facility] [address] [place] [address] Heydi Harding CNM [address] [place] [address] Cervical cancer screening (Primary Dx); Screening examination for venereal disease; Pelvic pain Social History Tobacco Use Types Packs/Day Years Used Date Smoking Tobacco: Every Day Cigarettes Smokeless Tobacco: Never Tobacco Cessation:Ready to Q uit: Not Asked; Counseling Given: Not Answered Depression Answer Date Recorded [...] Access Q2 Not on file 04/21/2025 Comments No Intention Date Recorded No desire to become (finding) 1 Sex and Gender Information Value Date Recorded Sex Assigned at Female 08/12/2022 10:30 AM EDT Legal Sex Female 10:30 AM EDT Gender Identity Female 08/12/2022 10:30 AM EDT Sexual Orientation Choose not to disclose 2021 10:30 AM EDT documented as of this encounter Last Filed Vital Signs Vital Sign Reading Time Taken Comments Blood Pressure 124/60 07/13/2025 9:11 AM EDT Pulse 70 07/13/2025 9:11 AM EDT Temperature 36.4 C (97.5 F) 07/13/2025 9:11 AM EDT Respiratory Rate 14 07/13/2025 9:11 AM EDT Oxygen Saturation 98% 07/13/2025 9:11 AM EDT Inhaled Oxygen Concentration - - Weight 51.6 kg (113 lb 12.8 oz) 07/13/2025 9:11 AM EDT Height - - Body Mass Index 22.23 06/28/2025 11:45 AM EDT documented in this encounter Progress Notes * Heydi Harding CNM - 07/13/2025 9:00 AM EDT Subjective Patient ID: Khushi Myrick is a 35 y.o. female who presents for pap ASCUS HPV neg 03/2023. ASCUS, HPV neg 03/2022, ASCUS, r/o LSIL, HPV neg 03/2021 preceded by NIL/HPV positive 10/2019. Cotesting was due 03/2024. Has tubal ligation. Care Home AMAB partner at last visit with me. They were for a while, and she had new AMAB partner. Now back with former partner, working on relationship. In therapy, has support. Feels safe, but knows to reach out if she needs help. Gonorrhea/Chlamydia/trichomonas, HIV neg 03/2022. Hepatitis screening ordered recently by PCP. Agrees to full STI testing today, vaginal sex. Monthly menses x 5 days. Cramping very bothersome, can occur a week or so prior to menses. Feels this has been worsening in past few months. Has missed events due to pain. NSAIDS helpful. Also notes newer onset intermittent pelvic pain with sex. PCP ordered ultrasound to evaluate. Has appointment 09/02/2025 for this. Review of Systems Genitourinary: Positive for dyspareunia, menstrual problem and pelvic pain. Negative for dysuria, frequency, genital sores, hematuria, urgency, vaginal bleeding, vaginal discharge and vaginal pain. No abnormal bleeding, no breast pain, no breast mass, no nipple discharge Objective BP 124/60 (BP Location: Left arm, Patient Position: Sitting, BP Cuff Size: Adult) Pulse 70 Temp97.5 ??F (36.4 ??C) (Oral) Resp 14 Wt 113 lb 12.8 oz (51.6 kg) LMP 07/01/2025 (Exact Date) SpO2 98% BMI 22.23 kg/m?? 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 Constitutional: Appearance: Normal appearance. Genitourinary: General: Normal vulva. Labia: Right: No rash, tenderness, lesion or injury. Left: No rash, tenderness, lesion or injury. Vagina: Normal. No signs of injury and foreign body. No vaginal discharge, erythema, tenderness, bleeding or lesions. Cervix: No cervical motion tenderness, discharge, friability, lesion, erythema, cervical bleeding or eversion. Uterus: Normal. Not enlarged and not tender. Adnexa: Right adnexa normal and left adnexa normal. Right: No mass, tenderness or fullness. Left: No mass, tenderness or fullness. Comments: No tenderness of pelvic floor muscles or adductors. Neurological: Mental Status: She is alert. Psychiatric: Mood and Affect: Mood normal. Behavior: Behavior normal. Assessment/Plan Diagnoses and all orders for this visit: Cervical cancer screening - Pap Smear Cotest 3 years as precaution if normal/HPV negative today. Will contact with results and plan. Screening examination for venereal disease - STI testing add on (NG, CT, Trich) - HIV-1/2 Antigen and Antibodies, Fourth Generation, with Reflexes; Future - Syphilis Screen; Future Pap based STI testing sent. Syphilis and HIV testing added on to PCP labs. Will contact with results. Pelvic pain NSAIDS working okay for now. Has prescription, reviewed safe dosing (no more than 600mg Q8h with food x 5-7 days). Consider progestin treatment if not helpful and no contraindications on ultrasound. Will be in touch with ultrasound results. documented in this encounter Plan of Treatment Upcoming Encounters Date Type Department Care Team (Late st Contact Info) Description 09/01/2025 9:00 AM EST Office Visit [facility] [address] [place] [address] [phone] Dotty Foreman ANP [address] [place] [address] Scheduled Orders Name Type Priority Associated Diagnoses Orde r Schedule Pap Smear Pathology and Cytology Routine Cervical cancer screening Ordered: 07/13/2025 STI testing add on (NG, CT, Trich) Pathology and Cytology Routine Screening examination for venereal disease Ordered: 07/13/2025 HIV-1/2 Antigen and Antibodies, Fourth Generation, with Reflexes Lab Routine Screening examination for venereal disease Expected: 07/13/2025 (Approximate), Expires: 07/13/2026 Syphilis Screen Lab Routine Screening examination for venereal disease Expected: 07/13/2025 (Approximate), Expires: 07/13/2026 documented as of this encounter Visit Diagnoses Diagnosis Cervical cancer screening- Primary Screening for malignant neoplasm of the cervix Screening examination for venereal disease Pelvic pain documented in this encounter Additional Health Concerns Assessment Noted Time PHQ-9 Depression Total Score: 16 025 9:42 AM EDT documented as of this encounter Care Teams Opera Singer Relationship Specialty Start Date End Date Dotty Foreman ANP [address] [place] [phone] PCP - General Family Medicine 09/27/20 documented as of this encounter
--- OUTSIDE RECORDS SUMMARY | 2025-07-14 10:08 | XMS_ITS | Clinical Summary ---
Author Organization [facility] Address [address] [place] [phone] Phone Care Team Providers Care Sustainment Logistics Analyst Name Role Phone Nguyen Mcclelland MD Primary [...] ACO C3 ACO C3 ACO C[address] [place] [address] C3 ACO Care Teams Sustainment Logistics Analyst Relationship Specialty Start Date End Date Nguyen Mcclelland MD PCP - General Internal Medicine 08/09/19 Additional Source Comments The information contained in this document represents components of the legal health record. It is not the complete legal health record.[facility]
--- OUTSIDE RECORDS SUMMARY | 2025-07-14 10:09 | XMS_ITS | Encounter Summary ---
Author Organization [employer] Address [address] 7t [place] [address] Care Team Providers Care Overage Shortage And Damage Clerk Name Role Phone Dotty Foreman Primary Care Provider [phone] Encounter Details Date Type Department Care Team ([facility] st Contact Info) Description 07/12/2025 Telephone [facility] [address] [place], [place] [phone] Adilene Merritt [place] Social History Tobacco Use Types Packs/Day Years Used Date Smoking Tobacco: Former Cigarettes Smokeless Tobacco: Never Depression Answer Date Recorded Patient Health Questionnaire-9 [...] AM EDT documented as of this encounter Miscellaneous Notes * Telephone Encounter - Adilene Merritt MA - 07/12/2025 1:53 PM EDT Chart Prep Labs: not done Images: order 06/28/25 Referrals: appointment pending Vaccines due: Covid, Flu, Hep B, and HPV Screenings: not applicable Overdue care gaps: Not applicable documented in this encounter Plan of Treatment Upcoming Encounters Date Type Department Care Team (Late st Contact Info) Description 09/01/2025 9:00 AM EST Office Visit [facility] [address] [place] [address] Dotty Foreman ANP [address] [place] [address] documented as of this encounter Visit Diagnoses Not on filedocumented in this encounter Additional Health Concerns Assessment Noted Time PHQ-9 Depression Total Score: 16 025 9:42 AM EDT documented as of this encounter Care Teams Overage Shortage And Damage Clerk Relationship Specialty Start Date End Date Dotty Foreman ANP [address] [place] [phone] PCP - General Family Medicine 09/27/20 documented as of this encounter
--- OUTSIDE RECORDS SUMMARY | 2025-07-14 10:09 | XMS_ITS | Encounter Summary ---
Author Organization [employer] Address [address]t [place] [address] Care Team Providers Care Reproduction Machine Loader Name Role Phone Ahsan Dotty GANDARA Primary Care Provider [phone] Encounter Details Date Type Department Care Team (Latest Contact Info) Description 07/13/2025 Travel Social History Tobacco Use Types Packs/Day Years Used Date Smoking Tobacco: Every Day Cigarettes Smokeless Tobacco: Never Depression Answer Date [...] Q2 Not on file 04/21/2025 Comments No Sex and Gender Information Value Date Recorded Sex Assigned at Female 08/12/2022 10:30 AM EDT Legal Sex Female 10:30 AM EDT Gender Identity Female 08/12/2022 10:30 AM EDT Sexual Orientation Choose not to disclose 2021 10:30 AM EDT documented as of this encounter Plan of Treatment Upcoming Encounters Date Type Department Care Team (Late st Contact Info) Description 09/01/2025 9:00 AM EST Office Visit [facility] [address] [place] [address] Dotty Foreman ANP [address] [place] [address] documented as of this encounter Visit Diagnoses Not on filedocumented in this encounter Additional Health Concerns Assessment Noted Time PHQ-9 Depression Total Score: 16 025 9:42 AM EDT documented as of this encounter Care Teams Reproduction Machine Loader Relationship Specialty Start Date End Date Dotty Foreman ANP [address] [place] [phone] PCP - General Family Medicine 09/27/20 documented as of this encounter
--- OUTSIDE RECORDS SUMMARY | 2025-07-14 10:09 | XMS_ITS | Clinical Summary ---
Author Organization [employer] Address [address] [place] [address] Care Team Providers Care Kier Drier Name Role Phone Ahsan Dotty GANDARA Primary Care Provider [phone] Allergies No known active allergies Medications * This document contains information received from the source organization and may not represent a complete record from that organization. levothyroxine (Synthroid, Levoxyl) 112 MCG tablet Take 1 tablet by mouth Once per day. 03/24/20 25 Active hydrOXYzine HCl (Atarax) 25 MG tablet Take 1 tablet (25 mg) by mouth every 8 (eight) hours if needed for anxiety. 60 tablet 2 04/21/20 25 Active escitalopram (Lexapro) 10 MG tabletIndicatio ns:Anxiety,Mode rate episode of recurrent major depressive disorder (CMS/HCC) (HCC) Take 1 tab daily for 1 week, then increase to 2 tabs daily 60 tablet 2 06/28/20 25 Active ibuprofen 600 MG tabletIndicatio ns:Pelvic pain Take 1 tab up to TID as needed with food for pain, start before menses 60 tablet 1 06/28/20 25 Active escitalopram (Lexapro) 10 MG tablet Take 1 tablet (10 mg) by mouth Once per day. 30 tablet 2 04/21/20 25 025 Discontinued(Re order (will not trigger notification to Pharmacy)) HPV 9-valent (Gardasil-9) suspension prefilled syringe vaccine prefilled syringeIndicati ons:Need for HPV vaccination Inject 0.5 mL into the muscle 1 (one) time for 1 dose. Repeat as directed 0.5 mL 2 06/28/20 25 025 Active Problems Problem Noted Date Diagnosed Date [...] Health Integration Plan Internal Follow up with [facility] External OP therapy referral Patient Self Plan Patient to utilize skills provided in intervention , Patient to reach out to [facility] team as needed, Comply with medication , Patient to engage in OP therapy , Patient to reach out to [facility] as needed, and Patient to follow-up [...] ,states has apt today with her therapist -f w PCP in 4 to 6 weks to [...] Internal Follow up with I External OP BH therapy referral Patient Self Plan Patient to utilize skills provided in intervention , Patient [facility] team as needed, Comply with medication , [...] radical neck dissection on 08/18/2019 -Following w scrap wheeler Yessica Davenport MD at [facility] Encounters Date Type Department Care Team Description 07/13/2025 9:00 AM EDT Procedure Visit [address] [address] Heydi Harding CNM Cervical cancer screening (Primary Dx); Screening examination for venereal disease; Pelvic pain 07/13/2025 Travel 07/12/2025 Telephone [facility] [address] [place] [phone] René Adilene [place] 06/28/2025 11:30 AM EDT Office Visit [address] [address] Dotty Foreman ANP Anxiety (Primary Dx); Moderate episode of recurrent major depressive disorder (CMS/HCC); Acquired hypothyroidism; Pelvic pain; Irregular menses; Need for hepatitis B screening test; Need for hepatitis C screening test; Need for HPV vaccination 06/28/2025 Travel 06/27/[address] [address] Dotty Foreman ANP chart prep 06/25/2025 Orders Only GENERIC EXTERNAL DATA DEPARTMENT Provider, Generic External Data 05/24/[address] [address] Margaret Robins MD No Show 05/23/[address] [address] Dotty Foreman ANP chartprep 05/20/[address] [address] Dotty Foreman ANP Appointment Request 05/19/[address] [address] Dotty Foreman ANP Chart prep 04/21/2025 9:45 AM EDT Telemedicine [address] [address] Yolande Larry MD Anxiety (Primary Dx); Moderate episode of recurrent major depressive disorder (CMS/HCC); Malignant tumor of thyroid gland (CMS/HCC) 04/21/2025 Travel 04/20/[address] [address] Dotty Foreman ANP chart prep 04/18/2025 Telephone [facility] [address] [place] [address] Dotty Foreman ANP Medication Question from Last 3 Months Immunizations Immunization Administration Dates Next Due Influenza injectable quadriv alent IIV4 with preservative 08/14/2017 Tdap 02/17/2019 Family History Medical History Relation Name Comments Colon cancer Mother's Sister at 42 Autism spectrum disorder Son Breast cancer Neg Hx Ovarian cancer Neg Hx Relation Name Status Comments Mother's Sister Son [...] 12.8 oz) 07/13/2025 9:11 AM EDT Height 152.4 cm (5') 06/28/2025 11:45 AM EDT Body Mass Index 22.23 06/28/2025 11:45 AM EDT Plan of Treatment Upcoming Encounters Date Type Department Care Team (Late st Contact Info) Description 09/01/2025 9:00 AM EST Office Visit [facility] [address] [place], [place] [phone] Dotty Foreman, ANP [address] [place] [address] Health Maintenance Due Date Last Done Comments Lipid Panel 1989 HPV Vaccines (1 - 3-dose series) 2004 Hepatitis C Screening 2007 Hepatitis B Vaccines (1 of 3 - 19+ 3-dose series) 2008 Pneumococcal Vaccine: Pediatrics (0 to 5 Years) and At-Risk Patients (6 to 49) Years (1 of 2 - PCV) 2008 Cervical Cancer Screening 03/20/2024 HPV/Cotest 03/20/2024 03/20/2023, 06/2022, 03/21/2021, Additional history exists Pap Smear 03/20/2024 03/20/2023, 06/2022, 03/21/2021 COVID-19 Vaccine ( - season) 2025 Influenza Vaccine (#1) 2025 08/14/2017 Depression Monitoring 10/22/2025 04/21/2025, 025 Alcohol/Substance Use Screening 04/21/2026 04/21/2025 Disability Screening 04/21/2026 04/21/2025 SDOH Screening 04/21/2026 04/21/2025 Family Planning (PISQ) 07/13/2026 07/13/2025 Tobacco Screening 07/13/2026 07/13/2025 DTaP/Tdap/Td Vaccines (2 - Td or Tdap) [...] Priority Date/Time Associated Diagnosis Comments TSH Routine 06/25/2025 10:17 AM EDT T4, FREE Routine 06/25/2025 10:17 AM EDT IMAGE-GUIDED PAP W/AGE BASED SCR PROTOCOLS Routine 03/20/2023 11:13 AM EDT ASCUS of cervix with negative high risk HPV HIV 1/2 ANTIGEN/ANTIBODY, FOURTH GENERATION W/RFL Routine 03/21/2022 11:41 AM EDT from Last 3 Months or Most Recently Relevant to Health Maintenance Results * (ABNORMAL) TSH (06/25/2025 10:17 AM EDT) Thyroid Stimulating Hormone 0.07(L) 0.32 - 4.0 uIU/mL [facility] Comment:TSH 3rd Generation ( [facility]) 06/25/2025 10:1 7 AM EDT 06/25/2025 10:17 AM EDT us Generic External Data Provider LAB BLOOD ORDERAB LES Final Result Performing Organization Address [facility]/ZIP Co de Phone Number [facility] [address] [place] [phone] * T4, Free (06/25/2025 10:17 AM EDT) Free T4 (Free Thyroxine) 1.40 0.71 - 1.85 ng/dL [facility] 06/25/2025 10:1 7 AM EDT 06/25/2025 10:17 AM EDT us Generic External Data Provider LAB BLOOD ORDERAB LES Final Result Performing Organization Address [facility] Co de Phone Number [facility] [address] [place] [phone] * (ABNORMAL) Image-Guided Pap with Age-Based Screening Protocols (03/20/2023 11:13 AM EDT) Comment [facility] Comment: This order for age-based cervical cancer and STI screening follows ACOG guidelines(PB 168, 140, ZAZ029). See individual assays for performing site location. Clinical Information: ASCUS HPV NEG 03/2022 [facility] [employer] [facility] LMP: NONE GIVEN [facility] [employer] Prev. PAP: NONE GIVEN [facility] [employer] Prev. BX: NONE GIVEN [facility] [employer] SOURCE: None given [facility] [employer] Statement Of Adequacy: [facility] [employer] Comment: Satisfactory for evaluation. Endocervical/transformation zone component absent. General Categorization: Cytology Results: Epithelial Cell Abnormality(A) [employer] Interpretation/ Result: Atypical Squamous Cells of Undetermined Significance (ASC-US)(A) [facility] COMMENT: This Pap test has been evaluated with computer assisted technology. [facility] Cytotechnologis t: [facility] Comment: KN, CT(ASCP) CT screening location: [address] [address] PATHOLOGIST: [facility] Comment: Aixa Gusman D.O. Board Certified in Anatomic, Clinical and Cytopathology (electronic signature) Consulting Pathologist [facility] [address] [place] [address] (Always Message) [facility] Comment: EXPLANATORY NOTE: The Pap is a [...] HPV nRNA E6/E7 Not Detected Not Detected [facility] Comment: Methodology: Senior Quality Control Technician-Mediated Amplification This assay detects E6/E7 viral messenger RNA (mRNA) from 14 high-risk HPV types (16,18,31,33,35,39,45,51,52,56,58,59,66,68). Cervical sources are required for HPV testing. If a vaginal source from a patient who has had a total hysterectomy with removal of cervix was submitted, please contact the testing laboratory for alternative testing options. For additional information, please refer to http://education.[employer]/faq/TRR236r5 (This link if provided for information/ educational purposes only.) Pap Vial 03/20/2023 11:1 3 AM EDT 03/21/2023 9:39 AM EDT Heydi Harding CNM LAB BLOOD ORDERABLES Karrie capps Result [facility] [address], [place] [address] [facility] [address] [place] [address] * HIV 1/2 ANTIGEN/ANTIBODY,FOURTH GENERATION W/RFL (03/21/2022 11:41 AM EDT) HIV-1/2 ANTIGEN AND ANTIBODIES, 4TH GENERATION W/ REFLEX NON-REACT SUPRIYA NON-REACT SUPRIYA [facility] Comment: HIV-1 antigen and HIV-1/HIV-2 [...] purpose. For additional information please refer to http://education.[employer]/faq/ETD912 (This link is being provided for informational/ educational purposes only.) The performance of this assay has not been clinically validated in patients less than 2 years old. 03/21/2022 11:4 1 AM EDT Heydi SILVA LAB BLOOD ORDERABLES Karrie capps Result Performing Organization Address City/State/[facility] Co de Phone Number [facility] Anywhere [address] from Last 3 Months or Most Recently Relevant to Health Maintenance Insurance [facility] C3 * Guarantor: Khushi Myrick Account Type Relation to Patient Date of Phone Billing Address Personal/Family Self [address] [place] [address] * Guarantor: Khushi Myrick Account Type Relation to Patient Date of Phone Billing Address Personal/Family Self [address] [place] [address] Care Teams Kier Drier Relationship Specialty Start Date End Date Dotty Foreman ANP [address] [place] [phone] PCP - General Family Medicine 09/27/20
[2025-07-15 21:44] LABS: Trichomonas (NAAT) NOT DETECTED (NOT DETECTED)
[2025-07-15 21:59] LABS: C. trachomatis RNA TMA NOT DETECTED (NOT DETECTED); N. gonorrhoeae RNA TMA NOT DETECTED (NOT DETECTED)
== END 2025-07-13 09:41 | disposition home or self-care (01) ==
LOC: HO.LNP 09:40
PROVIDERS: Visit Provider Advanced Practice Midwife
DX: Z12.4 Encounter for screening for malignant neoplasm of cervix (principal); Z20.2 Contact with and (suspected) exposure to infections with a predominantly sexual mode of transmission
CPT/HCPCS: 87491; 87591; 87626; 87661; 88175

== ENCOUNTER 2025-07-29 07:35 | Outpatient (AMB) | payer MEDICAID, SELFPAY ==
--- NOTE | 2025-07-29 07:37 | MHC.OFFVIS ---
Vital Signs 07/29/25 07:39 Height 5 ft Weight 113 lb 15.664 oz BMI 22.3 BP 94/56 L Blood Pressure Location Rt brachial Position Sitting Pulse 61 Pulse Source Pulse Oximeter Pulse Oximetry (%) 96 Oxygen Delivery Method Room Air Intake Visit Reasons: Hx of thyroid cancer Intake Note: Patient present today for Hx of thyroid cancer. 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: No Accompanied by: Self / Same As Patient Allergies No Known Allergies (No Known Allergies*) Allergy (Verified 07/29/25 07:41) Medication List - Last Reconciled 07/29/25 by Yessica Davenport MD escitalopram oxalate 10 mg PO DAILY hydroxyzine HCl 25 mg PO Q8H PRN levothyroxine 112 mcg PO DAILY HPI Comments Details: 35-year-old female here today for follow up of multifocal follicular variant of PTC status post total thyroidectomy and with central lymph node dissection and right modified radical neck dissection on 08/18/2019 with largest focus of 4 cm with 6/38 lymph nodes positive, no AI/LI/ETE, margins negative, AJCC stage I (pT2 N1b MX), MILLER intermediate risk of recurrence, status post remnant ablation with 28.8 mCi of I 131 on 12/24/2019, then adjuvant treatment with 145.8 mCi of I 131 on 04/13/2020 currently MILLER excellent vs indeterminate response to therapy due to mildly elevated Tg intermittenly . History PTC in detail Mid 2019: Noted lump in the region of the thyroid shortly before delivery of her 3rd child. Thyroid ultrasound revealed multinodular goiter with large right-sided nodule measuring 3.1 cm, and a large left-sided nodule measuring 2.2 cm. Labs revealed subclinical hyperthyroidism with TSH of 0.03. Labs were repeated approximately 1 month later with slightly improved TSH of 0.09. Free T4 and total T3 remained within normal limits. Thyroid antibodies were all negative. She was unable to have an uptake and scan given that she was of the time. 05/20/2019: TSH 0.24, symptoms greatly improved 06/17/2019: FNA of 3 separate thyroid nodules L superior 1.2 cm nodule - cytology [place] Category II benign L inferior 2.0 cm nodule - cytology [place] Category II benign R superior 3.0 cm nodule - cytology [place] Category II Atypia of Undetermined Signifigance - Affirma suspicious. Late 2019: Dr. Mcdowell performed lateral neck ultrasound with finding of a large left-sided 2 cm enlarged cervical lymph node. FNA revealed thyroid cells with high suspicion for metastatic PTC. 08/18/2019: Total thyroidectomy with central lymph node dissection and right modified radical neck dissection with Dr. Lynsey Mcdowell at [facility] with the official pathology revealed multifocal papillary carcinoma of the thyroid, follicular variant which was 4 cm in greatest dimension. No angioinvasion or lymphatic invasion identified. Margins were uninvolved. She did have 5/10 central and 1/19 right lateral compartment lymph nodes positive for metastatic PTC. She did have a 1.1 cm nodule resected from the right cervical level 3 which was reported as metastatic nodule, and within this nodule there was a microscopic focus for follicular variant of PTC. AJCC stage I (pT2 N1b MX), MILLER intermediate to high-risk of recurrence. Also had reimplantation of the right superior and left inferior parathyroid glands. She did develop postoperative hypocalcemia with hypoparathyroidism and was on calcium citrate with calcitriol postoperatively, but eventually PTH recovered and she was able to come off these. She was kept off thyroid hormone replacement postoperatively in preparation for I 131 remnant ablation. 08/05/2019: CT of the head with contrast prior to her operation due to severe headaches revealed a venous anomaly, and she is following with intubation and Neurology at [facility]. 09/14/2019: Noncontrast CT of the chest revealed multiple subcentimeter pulmonary nodules and also a soft tissue density within the anterior mediastinum. No measurements were given. Due to this decision was made to initially ablate her with a remnant ablation dose of I 131 30 mCi, in order to visualize the soft tissue mass within the mediastinum which is proven to be iodine avid, would need high-dose adjuvant treatment with I 131. 12/24/2019: Status post remnant ablation with 28.8 mCi of I 131. Done by withdrawal method. 01/11/2020: Labs not done until this date, but these were while she remained off levothyroxine and TSH was 64.71 with TG 55.6, negative TG antibodies. 12/31/2019: Posttreatment whole-body scan revealed a focus of radioiodine in the right thyroid bed thought to represent residual thyroid tissue/disease as well as several foci of increased uptake within both lungs suspicious for pulmonary micrometastasis. Mediastinal lesion was not visualized. 04/13/2020: Underwent adjuvant treatment with 145.8 mCi of I 131. Posttreatment whole-body scan revealed there is no longer region of radioiodine uptake in the right thyroid bed. Almost complete resolution of uptake in both lungs with only 1 focus of increased uptake identified within the mid right lung without a definitive correlate seen on CT imaging suspicious for residual pulmonary micro metastasis. Distribution of radiotracer uptake was otherwise physiologic with no abnormal focus out identified outside of the neck. This was completed via the withdrawal method. Unfortunately TSH and TG levels were not received. Of note, her initial remnant ablation was delayed until 12/24/2019 due to her inconsistently following a low iodine diet. Urinary iodine levels had remained elevated until just prior to 12/24/2019. Posttreatment she was started on Levothyroxine. 10/03/2020 labs revealed a TSH of 0.22, TG level of 0.1 and negative TG antibodies. 01/19/2021 labs reveal TSH 0.15 with TG <0.1 and TGAb <1. 07/17/2021: Whole-body scan was completed via thyroid hormone withdrawal which revealed increased radiotracer uptake at the mid level of the sternum with no correlation on SPECT CT. There was also increased uptake noted at the T1 and T7 vertebra, also with no abnormality noted on SPECT CT. 07/10/2021: Labs TSH 88.2, TG 1.6, TG antibody negative 2020: MRI of the thoracic spine as well as chest which revealed a triangular shaped soft tissue mass visualized in the anterior superior mediastinum thought to likely represent residual thymus. She was also noted to have a large disc osteophyte at C4-C5 with protrusion with potential severe canal stenosis and significant mass effect on the cervical spinal cord. No other spinal abnormality was noted. She has been following with Neurology for this abnormality. 08/02/2021: PET-CT revealed mildly hypermetabolic lymph nodes in the right level 2B and left level 2B. There was also mildly increased FDG uptake noted in the anterior superior mediastinum with CT demonstrating a triangular soft tissue mass there thought to represent time is. No focal abnormality noted within the spine. 07/2021: She was ordered for ultrasound head and neck however consistently no showed for this. 09/18/2021: TSH 0.01, suppressed TG less than 0.1, TG antibodies in undetectable 12/12/2021: MRI of the chest revealed an unchanged triangular shaped soft tissue mass within the superior mediastinum. Per results if additional imaging this represented normal slightly hyperplastic thymus. 02/13/2022: Ultrasound head and neck reveals to have normal-appearing cervical lymph nodes, right level 2, 1.4 cm and a left level 2, 1.1 cm lymph node. She was referred to Dr. Sienna Brown for FNA biopsy of these lymph nodes to assess for any recurrence in the cervical chain. 04/17/2022: Evaluated by Dr. Sienna Marmolejo at [facility], [place]: no abnormal lymph nodes found, TG was found to be undetectable. Recommendation was made to continue screening solely with TG levels and for a goal TSH of 0.1-0.5 for 3-5 years postoperatively and then 0.4-2. She used to be on levothyroxine 150 mcg daily at some point, this was reduced due to continuously suppressed TSH at some point in 2021, unclear exactly when. 04/19/2022: TSH suppressed, TG antibodies negative, TG less than 0.4?. 03/27/23: tsh 0.08, free t4 1.19, tg <0.1, tg ab <1 06/02/23: tsh 0.07, free t4 1.27 06/25/2023: Ultrasound head and neck did not show any suspicious soft tissue mass within the thyroidectomy bed. Showed a 1.6 X 0.7 next 1.5 cm right submandibular node with internal calcification considered as of normal morphology of uncertain significance. 09/19/23: tsh 1.59, free t4 1.17, tg 0.28, tg ab <0.4 10/04: US neck done with Dr. Vasquez : postrerior to carotid artery in left level IV a flat node measuring 0.5x 0.2 x 0.5 cm with no microcal or vascular flow (looked at report in pt's phone), left level 4 oval node 1.1 x 0.4x0.7 cm normal morphology 2023 TSH 1.5, Tg 0.28 (up from <0.1 but TSH was previousl ysuppressed ) 08/24/24: Dr. Emily Gates did US at [facility] i don not have this report but looked at it in patient phone [facility] said no abnormal LNs noted, left latera level 2, 7x3x9 [address]with hilum. 08/24/24: TSH 13.37, free t4 0.86, levothyroxine changed to 100 mcg daily from 88 mcg daily dose of levothyroxine changed to 100 mcg daily from 88 mcg daily 09/01/24: TSH 16.37, free T4 0.98, thyroglobulin 1.4, TG antibodies less than 1 12/18/2024: TSH 1.29, free T4 1.01, thyroglobulin 0.2, thyroglobulin antibody less than 1 Levothyroxine increased to 112 mcg daily with goal TSH around 0.5 02/19/2025: TSH 3.36, free T4 1.36, says sometimes she misses the dose of levothyroxine about once a week and sometimes she takes it later at night instead of in the morning. Interval history 04/07/2025: Ultrasound of the neck showed bilateral normal appearing hearing lymph nodes. 06/25/2025: TSH 0.07, free T4 1.40, 06/27/2025: Dose of levothyroxine reduced to 112 mcg Friday to Friday and half a tablet on Sundays Patient forgot to do blood work prior to this appointment Weight stable Denies compressive symtpms Complaining fo excessive tiredness whihc is persistent , also complaining of some joint pains which she has not discussed with her PCP. Physical exam General: sitting comfortably in no acute distress HEENT: normocephalic/atraumatic, Neck: supple, symmetrical, no palpable masses Cardiac: normal heart sounds Pulm: normal breath sounds B/L, no added breath sounds Abd: not distended, no tenderness Extremities: no edema, no signs of myxedema Neuro: AAO x3, Speech: normal, no facial droop, moving all 4 extremities Laboratory Tests 03/17/19 04/12/19 05/20/19 13:45 14:10 15:14 TSH Free T4 1.12 0.86 0.99 Thyroglobulin Thyroglobulin Antibody 06/16/19 09/08/19 10/21/19 09:50 15:35 14:35 TSH Free T4 0.87 Thyroglobulin 30.7 17.3 H Thyroglobulin Antibody 01/11/20 02/18/20 03/27/20 12:10 16:05 12:15 TSH Free T4 < 0.40 L 1.01 Thyroglobulin 55.6 H 2.3 L 3.9 Thyroglobulin Antibody 06/13/20 07/28/20 10/03/20 10:39 14:30 09:50 TSH 0.25 L 0.22 L Free T4 1.77 1.26 Thyroglobulin 0.8 L 0.1 L Thyroglobulin Antibody <1 <1 11/28/20 01/19/21 04/17/21 11:35 09:25 09:50 TSH 0.02 L 0.15 L < 0.01 L Free T4 1.42 1.22 1.53 Thyroglobulin <0.1 L <0.1 L <0.1 L Thyroglobulin Antibody <1 <1 <1 05/25/21 07/02/21 07/10/21 13:00 15:23 13:16 TSH 0.01 L 30.41 H 88.20 H Free T4 1.65 < 0.40 L Thyroglobulin 0.1 L 1.6 L Thyroglobulin Antibody <1 <1 09/18/21 11/21/21 01/02/22 11:38 10:40 12:30 TSH 0.01 L < 0.01 L Free T4 1.45 1.55 Thyroglobulin <0.1 L <0.1 L <0.1 L Thyroglobulin Antibody <1 <1 <1 01/02/22 02/13/22 04/19/22 12:47 13:52 10:15 TSH < 0.01 L < 0.01 L < 0.01 L Free T4 1.68 1.86 H 1.29 Thyroglobulin <0.1 L <0.1 L Thyroglobulin Antibody <1 <1 07/31/22 09/23/22 01/08/23 15:21 10:11 11:49 TSH < 0.01 L < 0.01 L < 0.01 L Free T4 1.80 1.71 1.19 Thyroglobulin 0.1 L Thyroglobulin Antibody <1 02/18/23 03/27/23 06/02/23 11:37 09:35 15:24 TSH 0.06 L 0.08 L 0.07 L Free T4 1.20 1.19 1.27 Thyroglobulin 0.1 L Thyroglobulin Antibody <1 07/22/23 10/28/23 09/01/24 10:00 12:40 06:23 TSH 1.27 0.67 16.37 H Free T4 1.00 1.21 0.98 Thyroglobulin 1.4 L Thyroglobulin Antibody <1 Laboratory Tests 12/18/24 02/19/25 10:57 10:14 TSH 1.29 3.36 Free T4 1.01 1.36 Thyroglobulin 0.2 H Thyroglobulin Antibody <1 Laboratory Tests 12/18/24 02/19/25 06/25/25 10:57 10:14 10:17 TSH 3.36 0.07 L Free T4 1.36 1.40 Thyroglobulin Antibody <1 Ultrasound neck soft tissues 04/07/25 Comparison: No prior studies of any type Findings: There has been thyroidectomy. Seven lymph nodes noted in right neck. Largest measures 1.8 x 0.6 cm. Two lymph nodes noted in the left neck. Larger of the 2 measures 1.0 x 0.6 cm. Prior measurements are included on worksheet. However, no images are submitted for comparison. Impression: Bilateral neck lymph nodes This document has been electronically signed by: Kasi Powell MD on 04/07/2025 19:14:12 ADDENDUMBerto Lemons confirmed receipt of these findings and recommendations with Sakshi HOWARD at the office of ordering provider David Suggs, at 11:49 AM 06/30/2023. Addendum Dictated By: Veronica Arizmendi MD Addendum Signed By: <Electronically signed by Veronica Arizmendi MD in [place]> 06/30/23 1151 Addendum Cosigned By: : 06/25/23/ EXAMINATION: US SOFT TISSUE OF THE NECK CLINICAL INFORMATION: Malignant neoplasm of thyroid gland. COMPARISON: Ultrasound soft tissue neck 02/13/2022. CT soft tissue neck 08/05/2019. Ultrasound soft tissue head/neck thyroid dated 03/04/2019. TECHNIQUE: Linear transducer grayscale and color Doppler examination of the thyroid bed and surrounding soft tissue. FINDINGS: Status post total thyroidectomy. No suspicious soft tissue within the thyroidectomy bed. A 1.6 x 0.7 x 1.5 cm right submandibular node appears to demonstrate internal calcification which would be abnormal morphology of uncertain which node on prior may be the correlate and recommend consideration of tissue sampling. US/US thyroid IMPRESSION: 1. A 1.6 x 0.7 cm right submandibular node appears to demonstrate internal calcification which would be abnormal morphology and recommend consideration of tissue sampling. 2. Status post total thyroidectomy. No suspicious soft tissue within the thyroidectomy bed. The report will be called to the ordering clinician by a [place] [facility] Physician Technical Advisor. US SOFT TISSUE NECK 02/13/22 CLINICAL INFORMATION: Personal history of malignant neoplasm of thyroid. COMPARISON: Ultrasound soft tissue head/neck thyroid dated 04/26/2019 and 03/04/2019. TECHNIQUE: Ultrasound of the neck soft tissues is performed with high- frequency deras-scale imaging and color Doppler. FINDINGS: THYROID BED: Patient appears be status post right thyroidectomy as well as question partial left thyroidectomy with on the provided imaging a question of some residual thyroid tissue within the thyroid bed. RIGHT NECK SOFT TISSUES: There are numerous right neck lymph nodes present. The largest nodes are as follows: Level VB: 9 x 4 x 7 mm. Normal alonzo architecture. No cortical thickening or lobulation. Level VB: 7 x 4 x 6 mm. Normal alonzo architecture. No cortical thickening or lobulation. Level II:14 x 6 x 13 mm. The appearance is abnormal with no definite fatty hilum identified and question of cortical thickening. The lymph node is smoothly demarcated. Level II: 7 x 3 x 5 mm. Normal architecture without cortical thickening or lobulation. Level II: 13 x 5 x 11 mm. Normal alonzo architecture without cortical thickening or lobulation. Level IB: 8 x 3 x 9 mm. Normal alonzo architecture without cortical thickening or lobulation. Level IB: 8 x 5 x 10 mm. Normal alonzo architecture without cortical thickening or lobulation. LEFT NECK SOFT TISSUES: There are numerous left neck lymph nodes present. The largest nodes are as follows: Level VB: 8 x 1 x 8 cm. Normal alonzo architecture. Level II: 7 x 3 x 5 cm. Normal alonzo architecture. Level II: 11 x 5 x 6 mm. It appears abnormal with lack of fatty hilum, however, no cortical thickening or lobulation is appreciated. Level III: 20 x 4 x 7 mm. Normal architecture without evidence of cortical thickening or lobulation. Level IB: 11 x 5 x 11 mm. Normal alonzo architecture without cortical thickening or lobulation. US/US soft tiss head and/or neck IMPRESSION: 1. Question abnormal lymph nodes without fatty clefts on the right at level II and on the left at level II as described. 2. Question small amount of residual thyroid tissue within the left thyroid bed on the provided images. MRI chest 12/12/21 ADDENDUM Addendum: The patient returned for additional axial in-phase, [id number] gradient echo sequences through the chest with phase and frequency directions reversed. There is signal loss to soft tissue in the anterior mediastinum on [id number] sequences suggestive of fatty normal thymus or thymic hyperplasia. Addendum Dictated By: Josi Land MD Addendum Signed By: <Electronically signed by Josi Land MD in [place]> 01/04/22 1643 Addendum Cosigned By: DD/ /04/1104 TD/TT: / EXAMINATION: MR CHEST WITHOUT AND WITH CONTRAST CLINICAL INFORMATION: Thyroid cancer. COMPARISON: Previous chest MRI July [address] September 2019 TECHNIQUE: Sagittal axial and coronal sequences through the chest with and without contrast. The patient received 5 mL intravenous gadolinium contrast. FINDINGS: The lungs are clear. There are no enlarged hilar or mediastinal lymph nodes. The heart does not appear enlarged. There is no pericardial effusion. There is triangular-shaped soft tissue seen in the anterior superior mediastinum likely representing residual thymic tissue that is stable. There is no pleural effusion or pleural thickening. No chest wall mass or enlarged axillary lymph nodes are seen. The bony structures are unremarkable. Images of the upper abdomen are unremarkable. MR/MR chest wo/w con IMPRESSION: Unremarkable exam. No change from previous chest MRI July 2021. MR THORACIC SPINE WITHOUT AND WITH CONTRAST 07/20/21 CLINICAL INFORMATION: Malignant neoplasm of the thyroid gland. COMPARISON: Chest CT 09/14/2019. TECHNIQUE: MRI of the thoracic spine was obtained using routine sequences with and without contrast. Intravenous contrast: Gadavist 5.5 mL. FINDINGS: No dedicated postcontrast imaging of the thoracic spine is available at the time of dictation. Dedicated postcontrast imaging of the thoracic spine would be helpful in excluding any osseous metastatic lesions given the history. The post contrast imaging of the chest does not adequately evaluate the thoracic spine for this purpose. On the noncontrast portion of the thoracic spine MRI there is no evidence of bone marrow replacement. There is no bone marrow edema. Inferior chronic endplate Schmorl's node at T8. On the localizer series and at the uppermost aspect of this study, at C4-C5, a large disc osteophyte protrusion results in potential severe central canal stenosis and significant mass effect on the cervical spinal cord that would be better assessed with a dedicated cervical spine MRI. Mild spondylitic changes throughout the thoracic spine. No severe central canal stenosis and no severe foraminal stenosis. Neural foraminal fat is preserved throughout the thoracic spine. No thoracic cord signal abnormality. No thoracic cord compression. Prominent dorsal subcutaneous fat within the imaged lower neck. MR/MR thoracic spine wo/w con IMPRESSION: - No dedicated postcontrast imaging of the thoracic spine is available at the time of dictation. Dedicated postcontrast imaging of the thoracic spine would be helpful in excluding any osseous metastatic lesions given the history. The post contrast imaging of the chest does not adequately evaluate the thoracic spine for this purpose. - On the localizer series and at the uppermost aspect of this study, at C4-C5, a large disc osteophyte protrusion results in potential severe central canal stenosis and significant mass effect on the cervical spinal cord that would be better assessed with a dedicated cervical spine MRI. - Mediastinum and chest are evaluated on the corresponding chest MRI. MR CHEST WITHOUT AND WITH CONTRAST 07/20/21 CLINICAL INFORMATION: Thyroid cancer. COMPARISON: Previous chest CT 09/14/2019. TECHNIQUE: Sagittal axial and coronal sequences through the chest were performed with and without contrast. Patient received 5.5 mL intravenous Gadavist contrast. FINDINGS: The lungs are clear. There are no enlarged hilar or mediastinal lymph nodes. There are small bilateral axillary lymph nodes. No supraclavicular lymphadenopathy is seen. There is triangular-shaped soft tissue seen in the anterior superior mediastinum likely representing residual thymic tissue. This is similar to previous chest CT scan. No evidence of a suspicious mediastinal mass is seen. The heart is normal in size. There is no pericardial effusion. Vascular structures are normal. There is no pleural effusion or pleural thickening. Images through the upper abdomen are unremarkable. Bony structures are unremarkable. MR/MR chest wo/w con IMPRESSION: Unremarkable exam. No change from September 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 Mother No problems noted. 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 [employer] Current occupational exposures/hazards: Yes (Stress, heavy lifting) Physical Exam Vital Signs: BMI result Body Mass Index 22.3 Assessment & Plan Assessment & Plan (1) History of thyroid cancer: Code(s): Z85.850 - Personal history of malignant neoplasm of thyroid Category: Medical Plan: 35-year-old female here today for follow up of multifocal follicular variant of PTC status post total thyroidectomy and with central lymph node dissection and right modified radical neck dissection on 08/18/2019 with largest focus of 4 cm with 6/38 lymph nodes positive, no AI/LI/ETE, margins negative, AJCC stage I (pT2 N1b MX), MILLER intermediate risk of recurrence, status post remnant ablation with 28.8 mCi of I 131 on 12/24/2019, then adjuvant treatment with 145.8 mCi of I 131 on 04/13/2020 currently MILLER excellent vs indeterminate response to therapy due to mildly elevated Tg intermittenly . She has also been followed at [facility] and had in office neck ultrasound in August 2024 which did not identify any abnormal lymph nodes. With suppressed TSH her TG levels have been less than 0.1, stimulated TG level in 2021 was 1.6, and in August 2024, with TSH as high as 16.37, her thyroglobulin has been at 1.4, putting her in indeterminate response to therapy category. Though it was recommended by [facility] to keep her TSH somewhere between 0.4-2, as she is greater than 5 years out of surgery, however I would likely target it more on the lower side of that range, as some data suggests she has excellent response to therapy versus some intermittently elevated TG levels that suggest indeterminate response to therapy. At this time most recent TSH from 06/25/2025: TSH 0.07, free T4 1.40, 06/27/2025: Dose of levothyroxine reduced to 112 mcg Friday to Friday and half a tablet on Sundays I will keep her on the same dose. She was supposed to do tumor markers prior to this appointment but forgot to do them. At this time she does endorse that she has been missing medication at least once a week. Advised about good administration. I reiterated to her that after she has been good about taking the medication, repeat another set of blood work in 8 weeks. Most recent tumor markers from December 2024 with TG of 0.2, , TG antibody negative, with TSH of 1.29. In indeterminate response, 15% to 20% we will have structural disease identified during follow-up, however in the remainder of the nonspecific changes are either stable or resolved, less than 1% have disease specific Plan: -ordered TSH, free T4 , TG and TG antibody levels to be done in 8 weeks, we will reach out with the results -TSH goal around 0.5 -continue levothyroxine 112 mcg daily 1 tablet Friday to Friday and half a tablet on Sundays, better adherence advised -follow up in 5 months (2) Postoperative hypothyroidism: Code(s): E89.0 - Postprocedural hypothyroidism Category: Medical Plan: With suppressed TSH her TG levels have been less than 0.1, stimulated TG level in 2021 was 1.6, and in August 2024, with TSH as high as 16.37, her thyroglobulin has been at 1.4, putting her in indeterminate response to therapy category. Though it was recommended by [facility] to keep her TSH somewhere between 0.4-2, as she is greater than 5 years out of surgery, however I would likely target it more on the lower side of that range, as some data suggests she has excellent response to therapy versus some intermittently elevated TG levels that suggest indeterminate response to therapy. At this time most recent TSH from 06/25/2025: TSH 0.07, free T4 1.40, 06/27/2025: Dose of levothyroxine reduced to 112 mcg Friday to Friday and half a tablet on Sundays I will keep her on the same dose. She was supposed to do tumor markers prior to this appointment but forgot to do them. At this time she does endorse that she has been missing medication at least once a week. Advised about good administration. I reiterated to her that after she has been good about taking the medication, repeat another set of blood work in 8 weeks. Most recent tumor markers from December 2024 with TG of 0.2, , TG antibody negative, with TSH of 1.29. In indeterminate response, 15% to 20% we will have structural disease identified during follow-up, however in the remainder of the nonspecific changes are either stable or resolved, less than 1% have disease specific Plan: -ordered TSH, free T4 , TG and TG antibody levels to be done in 8 weeks, we will reach out with the results -TSH goal around 0.5 -continue levothyroxine 112 mcg daily 1 tablet Friday to Friday and half a tablet on Sundays, better adherence advised Plan I spent 30 minutes in reviewing the record, seeing the patient and documenting in the medical record. Orders: Orders Thyroid Stimulating Hormone 8 Weeks E89.0 - Postprocedural hypothyroidism, Z85.850 - Personal history of malignant neoplasm of thyroid Free T4 (Free Thyroxine) 8 Weeks E89.0 - Postprocedural hypothyroidism, Z85.850 - Personal history of malignant neoplasm of thyroid Thyroglobulin 8 Weeks E89.0 - Postprocedural hypothyroidism, Z85.850 - Personal history of malignant neoplasm of thyroid Thyroglobulin Antibodies 8 Weeks E89.0 - Postprocedural hypothyroidism, Z85.850 - Personal history of malignant neoplasm of thyroid Thyroglobulin Tumor Marker 8 Weeks E89.0 - Postprocedural hypothyroidism, Z85.850 - Personal history of malignant neoplasm of thyroid Patient Instructions: Continue levothyroxine 112 mcg 1 tablet Friday to Friday and half a tablet on Sundays Do repeat blood work in 8-10 weeks, if you do not hear from anyone 1-2 weeks after doing the blood work, you can call the office during office hours to inquire about your blood work Follow up in December 2025 Coding Level of Care Code Est Pt Level 4 (94048) Complex EM visit Add On G2211 Diagnoses History of thyroid cancer Z85.850 Postoperative hypothyroidism E89.0 Time Spent (min) 30
[2025-07-29 07:39] VITALS: BP 94/56; PULSE 61; O2SAT 96; BMI 22.3
--- OUTSIDE RECORDS SUMMARY | 2025-07-29 07:39 | XMS_ITS | Clinical Summary ---
Author Organization Formerly [facility] Address [address] [place] [phone] Phone Care Team Providers Care Kiln Puller Name Role Phone Nguyen Mcclelland MD Primary [...] VACCINE (#1) 2025 COVID-19 VACCINE ( - 2024-2 6 season) 2025 HEPATITIS A VACCINES Aged Out [...] ACO C3 ACO C3 ACO C[address] [place] [place] [address] C3 ACO Care Teams Kiln Puller Relationship Specialty Start Date End Date Nguyen Mcclelland MD PCP - General Internal Medicine 08/09/19 Additional Source Comments The information contained in this document represents components of the legal health record. It is not the complete legal health record.[facility]ly [facility]
--- OUTSIDE RECORDS SUMMARY | 2025-07-29 07:39 | XMS_ITS | Clinical Summary ---
Author Organization [employer] Address [address] [facility] 7t [place] [address] Care Team Providers Care Generation Mechanic Helper Name Role Phone Ahsan Dotty GANDARA Primary Care Provider [phone] Allergies No known active allergies Medications * This document contains information received from the source organization and may not represent a complete record from that organization. levothyroxine (Synthroid, Levoxyl) 112 MCG tablet Take 1 tablet by mouth Once per day. 03/24/2025 Active hydrOXYzine HCl (Atarax) 25 MG tablet Take 1 tablet (25 mg) by mouth every 8 (eight) hours if needed for anxiety. 60 tablet 2 04/21/2025 Active escitalopram (Lexapro) 10 MG tabletIndicatio ns:Anxiety,Mode rate episode of recurrent major depressive disorder (CMS/HCC) (HCC) Take 1 tab daily for 1 week, then increase to 2 tabs daily 60 tablet 2 06/28/2025 Active ibuprofen 600 MG tabletIndicatio ns:Pelvic pain Take 1 tab up to TID as needed with food for pain, start before menses 60 tablet 1 06/28/2025 Active Active Problems Problem Noted Date Diagnosed [...] intervention , [facility], Comply with medication , [...] has apt today with her therapist -td w PCP in 4 to 6 weks [...] intervention , Patient to reach out to [facility] team as needed, Comply with medication , Patient to engage in OP BH therapy , Patient to reach out to [facility] as needed, and Patient to follow-up with [...] radical neck dissection on 08/18/2019 -Following w ip technology transactions attorney Yessica Davenport MD at [facility] Encounters Date Type Department Care Team Description 07/20/2025 Results Follow-Up [address] [address] Mitchell Mancilla CNM Pap Smear, STI testing add on (NG, CT, Trich) 07/13/2025 9:00 AM EDT Procedure Visit [address] [address] Mitchell Mancilla CNM Cervical cancer screening (Primary Dx); Screening examination for venereal disease; Pelvic pain 07/13/2025 Orders Only [address] [address] Mitchell Mancilla CNM 07/13/2025 Travel 07/12/2025 Telephone [facility] [address] [place] [address] Adilene Merritt MA 06/28/2025 11:30 AM EDT Office Visit [address] [address] Dotty Foreman ANP Anxiety (Primary Dx); Moderate episode of recurrent major depressive disorder (CMS/HCC); Acquired hypothyroidism; Pelvic pain; Irregular menses; Need for hepatitis B screening test; Need for hepatitis C screening test; Need for HPV vaccination 06/28/2025 Travel 06/27/[address] [address] Dotty Foreman ANP chart prep 06/25/2025 Orders Only GENERIC EXTERNAL DATA DEPARTMENT Provider, Generic External Data 05/24/[address] [address] Margaret Robins MD No Show 05/23/[address] [address] Dotty Foreman ANP chartprep 05/20/[address] [address] Dotty Foreman ANP Appointment Request 05/19/[address] [address] Dotty Foreman ANP Chart prep from Last 3 Months Immunizations Immunization Administration [...] Description 09/01/2025 9:00 AM EST Office Visit [facility] [address] [place], [place] [phone] Dotty Foreman ANP [address], [place] [phone] Health Maintenance Due Date Last Done Comments Lipid Panel 1989 HPV Vaccines (1 - 3-dose series) 2004 Hepatitis C Screening 2007 Hepatitis B Vaccines (1 of 3 - 19+ 3-dose series) 2008 Pneumococcal Vaccine: Pediatrics (0 to 5 Years) and At-Risk Patients (6 to 49) Years (1 of 2 - PCV) 2008 COVID-19 Vaccine ( season) 2025 Influenza Vaccine (#1) 2025 08/14/2017 Depression Monitoring 10/22/2025 04/21/2025, 025 Alcohol/Substance Use Screening 04/21/2026 04/21/2025 Disability Screening 04/21/2026 04/21/2025 SDOH Screening 04/21/2026 04/21/2025 Cervical Cancer Screening 07/13/2026 Family Planning (PISQ) 07/13/2026 07/13/2025 HPV/Cotest 07/13/2026 07/13/2025, 06/0 05/2023, 03/21/2022, Additional history exists Pap Smear 07/13/2026 07/13/2025, 06/0 05/2023, 03/21/2022, Additional history exists Tobacco Screening 07/13/2026 07/13/2025 DTaP/Tdap/Td Vaccines (2 [...] Procedure Name Priority Date/Time Associated Diagnosis Comments CHLAMYDIA/N. GONORRHOEAE AND T. VAGINALIS RNA, QUAL,TMA Routine 07/13/2025 9:40 AM EDT Screening examination for venereal disease PAP SMEAR Routine 07/13/2025 9:40 AM EDT Cervical cancer screening HPV DNA, LOW/HIGH RISK Routine 07/13/2025 9:40 AM EDT TSH Routine 06/25/2025 10:17 AM EDT T4, FREE Routine 06/25/2025 10:17 AM EDT HIV 1/2 ANTIGEN/ANTIBODY, FOURTH GENERATION W/RFL Routine 03/21/2022 11:41 AM EDT from Last 3 Months or Most Recently Relevant to Health Maintenance Results * STI testing add on (NG, CT, Trich) (07/13/2025 9:40 AM EDT) Trichomonas (NAAT) NOT DETECTED NOT DETECTED [facility] Comment:The analytical perfo rmance characteristics of thisassay have been determined by [employer]. Themodifications have not been cleared or approved bythe FDA. This assay has been validated pursuant to theCLIA regulations and is used for clinical purposes.For additional information, please refer tohttp://education.Perfect Channel.Calera/faq/Trichomonastma(This link is being provided for information/educational purposes only.)THIS TEST WAS PERFORMED AT:[employer] [place] [phone] ZHU MD CTNG Ref Lab NOT DETECTED NOT DETECTED [facility] NG Ref Lab NOT DETECTED NOT DETECTED [facility] ThinPrep vial Cervix uteri structure / Unknown 07/13/2025 9:40 AM EDT 07/14/2025 7:25 AM EDT Narrative [facility] - 07/15/2025 9:59 PM EDT Collection Date: [id number] by: ADILENE Aviles: Cervix Mitchell SILVA LAB CYTOLOGY ORDERABLES F inal Result [facility] [address] [place] [phone] * HPV DNA, Low/High Risk (07/13/2025 9:40 AM EDT) HPV High Risk Negative Negative [facility] HPV Genotype 16 Negative Negative [facility] HPV Genotype 18 Negative Negative [facility] Comment:HPV testing performe d at [facility] (CLIA#[id number]), [address] [place] [address].Testing for HPV was performed using the Reyna ORION 6800system. The presence of HPV in the female genital tract isassociated with a number of diseases, including cervicalcarcinoma. The HPV DNA high risk pool tests for HPV 31, 33,35, 39, 45, 51, 52, 56, 58, 59, 66 and 68. The testing forHPV 16 and 18 genotypes has also been performed. A positiveresult indicates detection of nucleic acid sequences fromone or more subtypes, whereas a negative result indicatessuch sequences were not detected. 07/13/2025 9:40 AM EDT 07/14/2025 7:25 AM EDT Mitchell SILVA LAB BLOOD ORDERABLES Karrie capps Result [facility] [address] [place] [phone] * Pap Smear (07/13/2025 9:40 AM EDT) Swab Cervix uteri structure / Unknown 07/13/2025 9:40 AM EDT 07/14/2025 7:25 AM EDT Narrative [facility] - 07/19/2025 3:25 PM EDT ----- ------- Name: Khushi Lopez Age/Sex: 35/F : 1990 Unit#: [id number] Attend Dr: MITCHELL MANCILLA CNM Re07/13/25 Status: DEP REF Location: [facility] Disch: ----- ------- SPEC : [id number] RECD: 07/14/25 STATUS: WILLOW ZAVALA NUM: [id number] LEONARDO: 07/13/[address]: MITCHELL MANCILLA CNM ENTERED: 07/14/25 SP TYPE: Pap Smr OTHR DR: ORDERED: Pap Smear, PAP path review Interpretation ABNORMAL PAP TEST. Satisfactory for evaluation, with atypical squamous cells of undetermined significance (ASC-US). No endocervical cells seen. Coccobacilli consistent with shift in vaginal amina. HPV High Risk: Negative HPV Genotyping 16: Negative HPV Genotyping 18: Negative Clinical Information LMP: Unknown date Previous PAP test: 2022, ASCUS, HPV negative Other history: Cervical cancer screening Material Received ThinPrep-Vaginal/Cervical PAP Disclaimer As of August 04, 2024, the technical services to include automated prescreening performed by the ThinPrep Imaging System, PAP screening and HPV testing will be performed at [facility] (CLIA #[id number]), [address] [place] [address]. Testing for HPV was performed using the Reyna ORION 6800 system. The presence of HPV in the female genital tract is associated with a number of diseases, including cervical carcinoma. The HPV DNA high risk pool tests for HPV 31, 33, 35, 39, 45, 51, 52, 56, 58, 59, 66 and 68. The testing for HPV 16 and 18 genotypes has also been performed. A positive result indicates detection of nucleic acid sequences from one or more subtypes, whereas a negative result indicates such sequences were not detected. All professional services are performed by [facility] ([address] [place] [address]; ; CLIA #[id number]). The PAP Test is a screening procedure with the inherent possibility of both false negative and false positive results. Results should be interpreted in the context of historic and current clinical findings. Reliability of the PAP Test is enhanced by performing the test on a regular repetitive basis. CONTINUED ON NEXT PAGE ----- ------- Name: Khushi Lopez Age/Sex: 35/F : 1990 Unit#: [id number] Attend Dr: MITCHELL MANCILLA CNM Re07/13/25 Status: DEP REF Location: [facility] Disch: ----- ------- SPEC : [id number] RECD: 07/14/25 STATUS: WILLOW ZAVALA NUM: [id number] LEONARDO: 07/13/[address] [facility] [address]: MITCHELL MANCILLA CNM ENTERED: 07/14/25 SP TYPE: Pap Smr DULCE MARIA DR: ORDERED: Pap Smear, PAP path review ----- ------- Signed (signature on file) Smita Leslie MD 07/19/25 1525 ----- ------- END OF REPORT us Mitchell Mancilla CNM LAB CYTOLOGY ORDERABLES F inal Result [facility] [address] [place] [phone] * (ABNORMAL) TSH (06/25/2025 10:17 AM EDT) Thyroid Stimulating Hormone 0.07(L) 0.32 - 4.0 uIU/mL [facility] Comment:TSH 3rd Generation ( [facility]) 06/25/2025 10:1 7 AM EDT 06/25/2025 10:17 AM EDT Generic External Data Provider LAB BLOOD ORDERAB LES Final Result Performing Organization Address [facility]/ZIP Co de Phone Number [facility] [address] [place] [phone] * T4, Free (06/25/2025 10:17 AM EDT) Free T4 (Free Thyroxine) 1.40 0.71 - 1.85 ng/dL [facility] 06/25/2025 10:1 7 AM EDT 06/25/2025 10:17 AM EDT Generic External Data Provider LAB BLOOD ORDERAB LES Final Result Performing Organization Address [facility] Co de Phone Number [facility] [address] [place] [phone] * HIV 1/2 ANTIGEN/ANTIBODY,FOURTH GENERATION W/RFL (03/21/2022 11:41 AM EDT) HIV-1/2 ANTIGEN AND ANTIBODIES, 4TH GENERATION W/ REFLEX NON-REACT SUPRIYA NON-REACT SUPRIYA [facility] Comment: HIV-1 antigen and HIV-1/HIV-2 [...] purpose. For additional information please refer to http://education.Clinical Data/faq/UHC843 (This link is being provided for informational/ educational purposes only.) The performance of this assay has not been clinically validated in patients less than 2 years old. 03/21/2022 11:4 1 AM EDT us Mitchell Mancilla CN LAB BLOOD ORDERABLES Karrie jefry Result [facility] Anywhere [address] from Last 3 Months or Most Recently Relevant to Health Maintenance [facility] Care Teams Generation Mechanic Helper Relationship Specialty Start Date End Date Dotty Foreman ANP [address] [place] [address] PCP - General Family Medicine 09/27/20
== END 2025-07-29 08:02 | disposition home or self-care (01) ==
LOC: HO.ENCR 07:35
PROVIDERS: PCP Nurse Practitioner Primary Care; Visit Provider Student in an Organized Health Care Education/Training Program
DX: Z85.850 Personal history of malignant neoplasm of thyroid (principal); E89.0 Postprocedural hypothyroidism
CPT/HCPCS: 99214

== ENCOUNTER → 2025-07-29 07:35 | Outpatient (BNVA) | payer MEDICAID, SELFPAY | PROVIDERS: PCP Nurse Practitioner Primary Care; Visit Provider Student in an Organized Health Care Education/Training Program | DX: E89.0 Postprocedural hypothyroidism (principal); Z85.850 Personal history of malignant neoplasm of thyroid | CPT/HCPCS: 99212 ==

== ENCOUNTER 2025-10-05 13:34 | Outpatient (REF) | payer MEDICAID, SELFPAY ==
--- NOTE | ~2025-10-05 | US_ITS ---
EXAMINATION: US PELVIS TRANSABDOMINAL AND TRANSVAGINAL HISTORY: Pelvic pain, L side COMPARISON: Comparison is made with the prior examination dated 04/11/2021. TECHNIQUE: Transabdominal and endovaginal real-time 2D deras-scale ultrasound was performed. FINDINGS: Uterus: The uterus is normal in size, measuring 10.4 x 3.9 x 5.9 cm. Myometrium has a normal echotexture. No fibroids are identified. Endometrium: The endometrial stripe measures 11 mm in thickness. There is trace fluid in the cervical canal. Right ovary: The right ovary measures 3.6 x 1.7 x 3.2 cm. The right ovary is normal in size and echotexture. Left ovary: The left ovary measures 3.1 x 1.7 x 2.1 cm. The left ovary is normal in size and echotexture. Pelvic fluid: none. US/US pelvic and transvaginal IMPRESSION: Trace fluid in the cervical canal. Otherwise unremarkable pelvic ultrasound. Electronically signed by: David Holbrook MD 10/05/2025 02:03 PM [facility]
--- OUTSIDE RECORDS SUMMARY | 2025-10-05 13:36 | XMS_ITS | Clinical Summary ---
Author Organization [employer] Address [address] [facility] 7t [place] [address] Care Team Providers Care Cut Out Press Operator Name Role Phone Dotty Foreman Primary Care Provider [phone] Allergies No known active allergies Medications * [...] intervention , [facility], Comply with medication , [...] intervention , Patient to reach out to [facility] team as needed, Comply with [...] radical neck dissection on 08/18/2019 -Following w hospital administrator Yessica Davenport MD at [facility] Encounters Date Type Department Care Team Description 08/31/[address] [facility] [address] [place] [phone] Dotty Foreman ANP chart prep 07/20/2025 Results Follow-Up [address] [address] Mitchell Mancilla CNM Pap Smear, STI testing add on (NG, CT, Trich) 07/13/2025 9:00 AM EDT Procedure Visit [address] [address] Mitchell Mancilla CNM Cervical cancer screening (Primary Dx); Screening examination for venereal disease; Pelvic pain 07/13/2025 Orders Only [facility] [address] [facility] [place] [address] Mitchell Mancilla CNM 07/13/2025 Travel 07/12/[address] [facility] [address] [place] [address] Adilene Merritt MA from Last 3 Months Immunizations Immunization Administration [...] 06/28/2025 11:45 AM EDT Plan of Treatment Health Maintenance Due Date Last Done Comments Lipid Panel 1989 HPV Vaccines (1 - 3-dose series) 2004 Hepatitis C Screening 2007 Hepatitis B Vaccines (1 of 3 - 19+ 3-dose series) 2008 Pneumococcal Vaccine: Pediatrics (0 to 5 Years) and At-Risk Patients (6 to 49) Years (1 of 2 - PCV) 2008 COVID-19 Vaccine (1 - season) 2025 Influenza Vaccine (#1) 2025 08/14/2017 Depression Monitoring 10/22/2025 04/21/2025, 025 Alcohol/Substance Use Screening 04/21/2026 04/21/2025 Disability Screening 04/21/2026 04/21/2025 SDOH Screening 04/21/2026 04/21/2025 Cervical Cancer Screening 07/13/2026 Family Planning (PISQ) 07/13/2026 07/13/2025 HPV/Cotest 07/13/2026 07/13/2025, 05/2023, 03/21/2022, Additional history exists Pap Smear 07/13/2026 07/13/2025, 05/2023, 03/21/2022, Additional history exists Tobacco Screening [...] LOW/HIGH RISK Routine 07/13/2025 9:40 AM EDT HIV 1/2 ANTIGEN/ANTIBODY, FOURTH GENERATION W/RFL Routine 03/21/2022 11:41 AM EDT from Last 3 Months or Most Recently Relevant to Health Maintenance Results * STI testing add on (NG, CT, Trich) (07/13/2025 9:40 AM EDT) Trichomonas (NAAT) NOT DETECTED NOT DETECTED [facility] Comment:The analytical perfo rmance characteristics of thisassay have been determined by [employer]. Themodifications have not been cleared or approved bythe FDA. This assay has been validated pursuant to theIA regulations and is used for clinical purposes.For additional information, please refer tohttp://education.Cass Art/faq/Trichomonastma(This link is being provided for information/educational purposes only.)THIS TEST WAS PERFORMED AT:[employer] [place] [phone] ZHU MD CTNG Ref Lab NOT DETECTED NOT DETECTED [facility] NG Ref Lab NOT DETECTED NOT DETECTED [facility] ThinPrep vial Cervix uteri structure / Unknown 07/13/2025 9:40 AM EDT 07/14/2025 7:25 AM EDT Narrative [facility] - 07/15/2025 9:59 PM EDT Collection Date: [id number] by: ADILENE Aviles: Cervix Mitchell Mancilla [facility] CYTOLOGY ORDERABLES F inal Result [facility] [address] [place] [phone] * HPV DNA, Low/High Risk (07/13/2025 9:40 AM EDT) HPV High Risk Negative Negative [facility] HPV Genotype 16 Negative Negative [facility] HPV Genotype 18 Negative Negative [facility] Comment:HPV testing performe d at [facility] (CLIA#[id number]), [address] [place] [address].Testing for HPV was performed using the Reyna [...] 9:40 AM EDT 07/14/2025 7:25 AM EDT us Mitchell Mancilla [facility] BLOOD ORDERABLES Karrie l Result [facility] [address] [place] [phone] * Pap Smear (07/13/2025 9:40 AM EDT) Swab Cervix uteri structure / Unknown 07/13/2025 9:40 AM EDT 07/14/2025 7:25 AM EDT Narrative [facility] - 07/19/2025 3:25 PM EDT ----- ------- Name: Khushi Lopez Age/Sex: 35/F : 1990 Unit#: [id number] Attend Dr: MITCHELL MANCILLA [facility] Re07/13/25 Status: DEP REF Location: [facility] Disch: ----- ------- SPEC : [id number] RECD: 07/14/25 STATUS: WILLOW ZAVALA NUM: [id number] LEONARDO: 07/13/[address] [facility] DR: MITCHELL MANCILLA CNM ENTERED: 07/14/25 SP TYPE: Pap Smr OT DR: ORDERED: Pap Smear, PAP path review [...] and HPV testing will be performed at [facility] (CLIA #[id number]), [address] [place] [address]. Testing for HPV was performed using the [...] detected. All professional services are performed by [facility] ([address] [place] [address]; ; CLIA #[id number]). The PAP Test is a screening procedure with the inherent possibility of both false negative and false positive results. Results should be interpreted in the context of historic and current clinical findings. Reliability of the PAP Test is enhanced by performing the test on a regular repetitive basis. CONTINUED ON NEXT PAGE ----- ------- Name: Khushi Lopez Age/Sex: 35/F : 1990 Unit#: [id number] Attend Dr: MITCHELL MANCILLA Re07/13/25 Status: DEP REF Location: [facility] Disch: ----- ------- SPEC : [id number] RECD: 07/14/25 STATUS: WILLOW ZAVALA NUM: [id number] LEONARDO: 07/13/[address] [facility] DR: MITCHELL MANCILLA [facility] ENTERED: 07/14/25 SP TYPE: Pap Angelika العراقي DR: ORDERED: Pap Smear, PAP path review ----- ------- Signed (signature on file) Smita Leslie MD 07/19/25 1525 ----- ------- END OF REPORT Mitchell Mancilla [facility] CYTOLOGY ORDERABLES F inal Result [facility] [address] [place] [phone] * HIV 1/2 ANTIGEN/ANTIBODY,FOURTH GENERATION W/RFL [...] purpose. For additional information please refer to http://education.Cass Art/faq/LNJ945 (This link is being provided for informational/ educational purposes only.) The performance of this assay has not been clinically validated in patients less than 2 years old. 03/21/2022 11:4 1 AM EDT Mitchell Mancilla [facility] BLOOD ORDERABLES Karrie l Result [facility] [address] from Last 3 Months or Most Recently Relevant to Health Maintenance Insurance [facility] C3 Care Teams Cut Out Press Operator Relationship Specialty Start Date End Date Dotty Foreman ANP [address] [place] [phone] PCP - General Family Medicine 09/27/20
--- OUTSIDE RECORDS SUMMARY | 2025-10-05 13:36 | XMS_ITS | Clinical Summary ---
Author Organization [facility] Address [address] [place] [phone] Phone Care Team Providers Care Capsule Inspector Name Role Phone Nguyen Mcclelland MD Primary [...] [facility]CO [facility]3 [facility]3 [facility] [place] [address] [address] [place] [address] C3 ACO Care Teams Capsule Inspector Relationship Specialty Start Date End Date Nguyen Mcclelland MD PCP - General Internal Medicine 08/09/19 Additional Source Comments The information contained in this document represents components of the legal health record. It is not the complete legal health record.[facility]
== END 2025-10-05 13:35 | disposition home or self-care (01) ==
LOC: HO.US 13:34
PROVIDERS: PCP Nurse Practitioner Primary Care; Visit Provider Nurse Practitioner Primary Care
DX: R10.20 Pelvic and perineal pain unspecified side (principal)
CPT/HCPCS: 76830; 76856

== ENCOUNTER → 2025-10-05 13:38 | Outpatient (BNV) | payer MEDICAID, SELFPAY | PROVIDERS: PCP Nurse Practitioner Primary Care; Visit Provider Radiology Diagnostic Radiology | DX: R10.22 Pelvic and perineal pain left side (principal) | CPT/HCPCS: 76830; 76856 ==